=== PATIENT | female | born 1995 | race Caucasian/White ===

== ENCOUNTER 2020-01-08 11:45 | Outpatient (REF) | payer OTHER, SELFPAY ==
[2020-01-08 13:33] LABS: Ferritin 3 ng/mL (10-122); Vitamin D 25-OH Total 31.5 ng/mL (>30)
[2020-01-11 03:56] LABS: Zinc 70 mcg/dL (60-130)
== END 2020-01-08 11:46 | disposition home or self-care (01) ==
LOC: HO.LAB 11:45
PROVIDERS: PCP Internal Medicine; Visit Provider Physician Assistant Medical
DX: L65.0 Telogen effluvium (principal); L64.8 Other androgenic alopecia
CPT/HCPCS: 82306; 82728; 84630

== ENCOUNTER 2020-01-15 08:52 | Outpatient (REF) | payer OTHER, SELFPAY ==
[2020-01-15 09:12] LABS: COVID-19 Test Negative (Negative)
== END 2020-01-15 08:53 | disposition home or self-care (01) ==
LOC: HO.LAB 08:52
PROVIDERS: Visit Provider Internal Medicine
DX: Z20.828 Contact with and (suspected) exposure to other viral communicable diseases (principal)
CPT/HCPCS: 87635

== ENCOUNTER 2020-02-10 12:38 | Outpatient (REF) | payer OTHER, SELFPAY ==
[2020-02-10 14:31] LABS: COVID-19 Test Negative (Negative); IDNOW Serial# 55D5AD1C
== END 2020-02-10 12:39 | disposition home or self-care (01) ==
LOC: HO.EMPCOV 12:38
PROVIDERS: Visit Provider Internal Medicine
DX: Z20.828 Contact with and (suspected) exposure to other viral communicable diseases (principal)
CPT/HCPCS: 87635; C9803

== ENCOUNTER 2020-02-11 13:00 | Outpatient (REF) | payer OTHER, SELFPAY ==
[2020-02-14 16:57] LABS: CMV DNA PCR Qn Source Whole Blood; CMV DNA Qn PCR <2.30 log IU/mL (<2.30); CMV DNA Qn Real Time PCR <200 IU/mL (<200)
== END 2020-02-11 13:01 | disposition home or self-care (01) ==
LOC: HO.LAB 13:00
PROVIDERS: Visit Provider Internal Medicine
DX: J02.9 Acute pharyngitis, unspecified (principal)
CPT/HCPCS: 87497

== ENCOUNTER 2020-03-06 08:13 | Outpatient (REF) | payer OTHER, SELFPAY ==
--- NOTE | 2020-03-06 08:17 | FL_ITS ---
EXAMINATION: XR GI SERIES CLINICAL INFORMATION: GE reflux disease without esophagitis. COMPARISON: None TECHNIQUE: Routine upper GI single contrast study was performed in upright and lying position. FINDINGS: Following oral administration of thick barium and effervescent granules, there is normal propagation of bolus from the oral cavity through the pharynx, esophagus into stomach without obstruction, narrowing, or stricture. On placing patient prone and supine lying, the course, caliber and peristalsis of the stomach, duodenal bulb and the sweep is normal. No gastroesophageal reflux or hiatal hernia seen. The mucosal pattern of stomach, duodenal bulb and the sweep is normal. FLUOROSCOPY TIME: 1.1 minutes DOSE AREA PRODUCT: 7.147 uGy-m2 (microgray-meter squared) FL/FL upper GI series IMPRESSION: Unremarkable upper GI single contrast study.
== END 2020-03-06 08:14 | disposition home or self-care (01) ==
LOC: HO.XRAY 08:13
PROVIDERS: PCP Internal Medicine; Visit Provider Internal Medicine
DX: K21.9 Gastro-esophageal reflux disease without esophagitis (principal)
CPT/HCPCS: 74240

== ENCOUNTER 2020-03-17 14:05 | Outpatient (REF) | payer OTHER, SELFPAY ==
[2020-03-17 14:22] LABS: COVID-19 Test Negative (Negative)
== END 2020-03-17 14:06 | disposition home or self-care (01) ==
LOC: HO.EMPCOV 14:05
PROVIDERS: Visit Provider Internal Medicine
DX: Z20.828 Contact with and (suspected) exposure to other viral communicable diseases (principal)
CPT/HCPCS: 87635; C9803

== ENCOUNTER 2020-04-17 08:36 | Outpatient (REF) | payer OTHER, SELFPAY ==
[2020-04-17 09:42] LABS: Ferritin 30 ng/mL (10-122)
== END 2020-04-17 08:37 | disposition home or self-care (01) ==
LOC: HO.LAB 08:36
PROVIDERS: PCP Internal Medicine; Visit Provider Dermatology
DX: L64.8 Other androgenic alopecia (principal); L65.0 Telogen effluvium
CPT/HCPCS: 36415; 82728

== ENCOUNTER 2020-05-01 08:54 | Outpatient (REF) | payer OTHER, SELFPAY ==
[2020-05-01 09:11] LABS: COVID-19 Test Negative (Negative)
== END 2020-05-01 08:55 | disposition home or self-care (01) ==
LOC: HO.EMPCOV 08:54
PROVIDERS: Visit Provider Internal Medicine
DX: Z20.822 Contact with and (suspected) exposure to COVID-19 (principal)
CPT/HCPCS: 36415; 87635; C9803

== ENCOUNTER 2020-06-12 09:56 | Outpatient (REF) | payer OTHER, SELFPAY | END 2020-06-12 09:57 | disposition home or self-care (01) | LOC: HO.LAB 09:56 | PROVIDERS: PCP Physician Assistant; Visit Provider Obstetrics & Gynecology | DX: Z01.419 Encounter for gynecological examination (general) (routine) without abnormal findings (principal) | CPT/HCPCS: 88142 ==

== ENCOUNTER 2020-11-24 08:40 | Outpatient (REF) | payer OTHER, SELFPAY ==
[2020-11-24 10:09] LABS: Ferritin 47 ng/mL (10-122)
[2020-12-02 20:56] LABS: Cystic Fibrosis NEGATIVE (NEGATIVE)
== END 2020-11-24 08:41 | disposition home or self-care (01) ==
LOC: HO.LAB 08:40
PROVIDERS: Absent Provider Dermatology; PCP Internal Medicine; Visit Provider Obstetrics & Gynecology Reproductive Endocrinology
DX: L64.8 Other androgenic alopecia (principal); L65.0 Telogen effluvium
CPT/HCPCS: 36415; 81220; 81329; 82728

== ENCOUNTER 2021-03-11 10:27 | Outpatient (REF) | payer OTHER, SELFPAY ==
[2021-03-11 10:45] LABS: MANUAL DIFF FLAG NO
[2021-03-11 11:30] LABS: Basophils Percent Auto 0.3 % (0-2); Eosinophils Absolute Auto 0.5 X10*3/uL (0.0-0.4); Eosinophils Percent Auto 8.1 % (0-4); Hematocrit 39.5 % (37.0-47.0); Imm Gran Abs Auto 0.01 X10*3/uL (0.00-0.03); Imm Gran Pct Auto 0.2 % (0.0-0.4); Lymphocytes Percent Auto 33.7 % (20-40); Mean Corpuscular HGB Conc 32.9 g/dl (31.0-35.0); Mean Corpuscular Hemoglobin 30.6 pg (27.0-33.0); Mean Corpuscular Volume 92.9 fL (80.0-98.0); Mean Platelet Volume 9.9 fL (9.4-12.3); Monocytes Absolute Auto 0.3 X10*3/uL (0.1-1.2); Monocytes Percent Auto 4.9 % (2-11); Neutrophils Absolute Auto 3.1 x10*3/uL (2.0-8.3); Neutrophils Percent Auto 52.8 % (45-73); Platelet Count 321 X10*3/uL (160-400); Red Blood Count 4.25 X10*6/uL (4.20-5.50); Red Cell Distribution Width 12.4 % (11.0-16.0); White Blood Count 5.9 X10*3/uL (4.8-10.8)
[2021-03-11 11:51] LABS: Alanine Aminotransferase 9 U/L (0-31); Albumin Level 4.3 g/dL (3.5-5.0); Alkaline Phosphatase 45 U/L (39-117); Anion Gap 12 (12-20); Aspartate Amino Transferase 13 U/L (5-31); Bilirubin Total 0.5 mg/dL (0.0-1.0); Blood Urea Nitrogen 11 mg/dL (9-16); Calcium 9.3 mg/dL (8.4-10.2); Carbon Dioxide 23 mmol/L (22-29); Chloride 107 mmol/L (96-108); Cholesterol 168 mg/dL; Estimated Glomerular Filt Rate > 60; Glucose Fasting 75 mg/dL (60-99); HDL Cholesterol 50 mg/dL; Iron 142 mcg/dL (30-160); LDL Cholesterol Calculated 109 mg/dl; Percent Iron Saturation 45 % (15-50); Potassium 4.2 mmol/L (3.3-5.1); Sodium 138 mmol/L (135-145); Total Iron Binding Capacity 313 mcg/dL (228-428); Total Protein 7.2 g/dL (6.5-8.0); Triglycerides 48 mg/dL; Unsaturated Iron Binding 171 ug/dL
[2021-03-11 12:14] LABS: Vitamin D 25-OH Total 20.4 ng/mL (>30)
[2021-03-11 12:22] LABS: Folate 6.4 ng/mL (> or = 4.0); Vitamin B12 405 pg/mL (200-900)
== END 2021-03-11 10:28 | disposition home or self-care (01) ==
LOC: HO.LAB 10:27
PROVIDERS: Absent Provider Nurse Practitioner Family; PCP Internal Medicine; Visit Provider Internal Medicine
DX: K14.6 Glossodynia (principal); E78.5 Hyperlipidemia, unspecified; D64.9 Anemia, unspecified; E78.00 Pure hypercholesterolemia, unspecified
CPT/HCPCS: 36415; 80053; 80061; 82306; 82607; 82746; 83540; 85025

== ENCOUNTER → 2021-03-29 07:06 | Outpatient (REF) | payer OTHER, SELFPAY ==
--- NOTE | 2021-03-29 | HM_ITS ---
Conclusion: 1. Patient was monitored for total period of 6 days and 18 hours 2. Baseline rhythm is normal sinus rhythm with average heart rate of 81 beats per minute 3. Very rare ectopy noted 4. No patient reported event MTDD
== END ==
LOC: HO.CARD 07:06
PROVIDERS: PCP Internal Medicine; Visit Provider Internal Medicine
DX: R00.0 Tachycardia, unspecified (principal)
CPT/HCPCS: 93242

== ENCOUNTER 2021-06-03 19:18 | Emergency (ER) | payer OTHER, SELFPAY ==
[2021-06-03 19:31] VITALS: BP 151/86; PULSE 123; RESP 16; TEMP 37.6; O2SAT 96; BMI 34.3
--- NOTE | 2021-06-03 19:44 | ECG_ITS ---
Test Reason : covid sysmptoms Blood Pressure : / mmHG Vent. Rate : 107 BPM Atrial Rate : 107 BPM P-R Int : 178 ms QRS Dur : 086 ms QT Int : 318 ms P-R-T Axes : 073 020 038 degrees QTc Int : 424 ms Sinus tachycardia Otherwise normal ECG No previous ECGs available Referred By: Karina Razo Electronically Signed By:KADIE SEQUEIRA MD
--- NOTE | 2021-06-03 20:05 | ED.FEVER ---
HPI - Fever General Chief Complaint: Fever Stated Complaint: fever Time Seen by Provider: 06/03/21 19:44 Source: patient Mode of arrival: ambulatory Limitations: no limitations History of Present Illness HPI Narrative: This is a 26-year-old female past medical history significant for GERD, low vitamin-D level presenting to the emergency department with malaise, bilateral ear discomfort, throat discomfort, fevers and fatigue x1 day. Patient tells me that this started approximately 16:00 suddenly. 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 Patient tells me she feels a fullness to bilateral ears and discomfort when she swallows, right ear worse than left. She has also feeling like her throat is very dry and uncomfortable. She reports fevers at home T-max around 102. Again she notes that this was sudden in onset. She is vaccinated against COVID and the flu. She has no history of mono. She denies chest pain, shortness of breath, nausea, vomiting, abdominal pain, weakness, headache, dizziness, lethargy. She just tells me she really does not feel well. She denies recent sick contacts. 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 MD elicited complaint: fever and malaise Onset (ago): day(s) (1) Measured temperature: 102 F Exacerbating factors: nothing Relieving factors: nothing Associated symptoms: chills and sore throat Treatments prior to arrival fever: none Related Data Home Medications Medication Instructions Recorded Confirmed ferrous sulfate 325 mg (65 mg 325 mg PO DAILY 02/10/20 03/11/21 iron) tablet Previous Rx's Medication Instructions Recorded Magic Mouthwash 5 ml PO QID 7 Days #240 ml 03/11/21 Diphen/Lido/Antacid 1:1:1 240 mL suspension Allergies Allergy/AdvReac Type Severity Reaction Status Date / Time sulfamethoxazole Allergy Severe HIVES Verified 03/11/21 10:06 [From BACTRIM] trimethoprim [From BACTRIM] Allergy Severe HIVES Verified 03/11/21 10:06 Sulfa (Sulfonamide Allergy Unknown hives Verified 03/11/21 10:06 Antibiotics) Review of Systems Review of Systems: Constitutional : No Weight loss, + Fever, + Chills, + Fatigue, +No Malaise ENT/Mouth : + sore throat, No Rhinorrhea, + ear discomfort Eyes: No Eye Pain, No Swelling, No Redness Cardiovascular : No Chest Pain, No SOB, No Dyspnea on Exertion, No Orthopnea, No Edema, No Palpitations Respiratory : No Cough, No Sputum, No Wheezing Gastrointestinal : No Nausea, No Vomiting, No Diarrhea, No Constipation, No abdominal Pain, No Hematochezia, No Melena Genitourinary : No Dysuria, No Urinary Frequency, No Hematuria, Musculoskeletal : No joint pain, No Myalgias, No Joint Swelling Skin : No Skin Lesions, No rash Neuro : No Weakness, No Numbness, No Dizziness, No Headache Psych : No Anxiety/Panic, No Depression All other systems reviewed and are negative Yes all other systems are reviewed and are negative [facility] Past Medical History Attestation statement: The following information was validated with the patient. Source: old records reviewed and nursing notes reviewed Medical History GERD (gastroesophageal reflux disease) Iron deficiency anemia due to chronic blood loss Left knee pain Physical exam Pure hypercholesterolemia Tachycardia Surgical History History of adenoidectomy Family History Family History Father Depression Mother Lupus Rheumatoid arthritis Sarcoidosis Social History Social History Housing: Apartment Alcohol intake: never Patient Tobacco Use Status: Never used Tobacco e-Cigarette/Vaping Use: Never Used Second Hand Smoke Exposure: No Advance Directives: No service: No Current occupational status: employed Current occupational exposures/hazards: No Gender identity: Female Physical Exam Vital Signs: Vital Signs: Last Vital Signs Temp 99.2 F 06/03/21 21:48 Pulse 114 H 06/03/21 21:54 Resp 16 06/03/21 21:54 BP 111/68 06/03/21 21:54 Pulse Ox 99 06/03/21 21:48 BMI result Body Mass Index 34.3 Patient's temperature noted to be slightly elevated. However not febrile at this time. Patient also noted to be tachycardic. Appearance: Alert.? Oriented X3.? No acute distress.? Head: Normocephalic, atraumatic, no step-offs or deformities Eyes: Pupils equal, round and reactive to light.? ENT: Pharynx normal.?+ bilateral ear canals erythematous without edema. No pain with manipulation of external ear. Bilateral tympanic membranes pearly white. Neck: Normal inspection.? Neck supple.? CVS: Regular rate pass rhythm likely sinus tachycardia. Pulses normal.? Respiratory: No respiratory distress.? Breath sounds normal.? Abdomen: Soft and nontender.? Skin: Skin warm and dry.? Normal skin color.? Normal skin turgor.? Extremities: No lower extremity edema.? No calf ttp. 5/5 strength to bilateral upper and lower extremities Back: No midline tenderness, no C-spine tenderness, full range of motion, no CVA tenderness bilaterally Neuro: Oriented X 3.? No motor deficit.? No sensory deficit. CN 2-12 intact Course Reevaluation(s) Reevaluation #1: CBC within normal limits. Chemistry with no acute electrolyte abnormalities. Lipase within normal limits. Urine negative. Urine negative. Flu/COVID/RSV negative. Monospot negative. Time: 21:57 Reevaluation #2: I had Dr. Soria look at patients ears. There is likely a cholesteatoma on the left ear. Will have her follow-up with ENT. Patient's symptoms are likely secondary to a viral illness. At this time I feel comfortable with discharge home with prompt PCP follow-up. I have given patient strict return precautions and advised her to return with new or worsening symptoms. Time: 22:20 MDM - Fever MDM Narrative Medical decision making narrative: 1945 26 yo f no significant pmhx presents to the emergency department with complaints of fevers, malaise, fatigue, dry throat, bilateral ear fullness/discomfort. Upon physical examination rapid regular rhythm is noted. Lungs are clear. Abdomen soft nontender nondistended. Neuro exam nonfocal. Patient is noted to be running a low-grade fever, and she is tachycardic likely secondary to fever and dehydration. Bilateral ear canals slightly erythematous however no edema noted. No pain with manipulation of external ear. No effusions or bulging of the tympanic membrane bilaterally. Negative Dinorah bilaterally. Based off patient history and physical examination will rule out flu/COVID/RSV, mono. I will also obtain basic labs to rule out electrolyte abnormalities. An EKG to ensure that the rapid regular rhythm is sinus tachycardia. History and physical examination not consistent with pulmonary embolism. Plan obtain basic labs, blood cultures, lactic, UA. Medical Records Attestation: I reviewed the patient's medical records. Lab Data Attestation: I reviewed the patient's lab results. Result diagrams: 06/03/21 20:11 06/03/21 20:11 Labs: Lab Results 06/03/21 06/03/21 06/03/21 Range/Units 20:10 20:10 20:10 WBC (4.8-10.8) X10*3/uL RBC (4.20-5.50) X10*6/uL Hgb (12.0-16.0) g/dl Hct (37.0-47.0) % MCV (80.0-98.0) fL MCH (27.0-33.0) pg MCHC (31.0-35.0) g/dl RDW (11.0-16.0) % Plt Count (160-400) X10*3/uL MPV (9.4-12.3) fL Immature Gran % (Auto) (0.0-0.4) % Neut % (Auto) (45-73) % Lymph % (Auto) (20-40) % [place] % (Auto) (2-11) % Eos % (Auto) (0-4) % Baso % (Auto) (0-2) % Lymph # (Auto) (1.2-4.9) X10*3/uL [place] # (Auto) (0.1-1.2) X10*3/uL Eos # (Auto) (0.0-0.4) X10*3/uL Baso # (Auto) (0.0-0.2) X10*3/uL Abs Immat Gran (auto) (0.00-0.03) X10*3/uL Absolute Neuts (auto) (2.0-8.3) x10*3/uL Absolute Nucleated RBC (0.0-0.012) X10*3/uL Nucleated RBC % (auto) (0.0-0.2) /100WBC Sodium (135-145) mmol/L Potassium (3.3-5.1) mmol/L Chloride (96-108) mmol/L Carbon Dioxide (22-29) mmol/L Anion Gap (12-20) BUN (9-16) mg/dL Creatinine (0.5-1.4) mg/dL Estim Creat Clear Calc Estimated GFR Random Glucose (60-115) mg/dL Lactic Acid 0.9 (0.5-2.0) mmol/L Calcium (8.4-10.2) mg/dL Magnesium (1.6-2.6) mg/dL Total Bilirubin (0.0-1.0) mg/dL AST (5-31) U/L ALT (0-31) U/L Alkaline Phosphatase (39-117) U/L Total Protein (6.5-8.0) g/dL Albumin (3.5-5.0) g/dL Lipase (8-78) U/L Urine Color Urine Appearance Urine pH (5.0-8.0) Ur Specific Worth (1.005-1.025) Urine Protein (NEG-TRACE) MG/DL Urine Glucose (UA) (NEG) MG/DL Urine Ketones (NEG) MG/DL Urine Blood (NEG) Urine Nitrite (NEG) Ur Leukocyte Esterase (NEG) Urine RBC (0) /HPF Urine WBC (0-4) /HPF Ur Squamous Epith Cells /LPF Urine Bacteria /LPF Urine Test (NEGATIVE) Monoscreen Negative (Negative) Influenza Type A (PCR) NEGATIVE (Negative) Influenza Type B (PCR) NEGATIVE (Negative) RSV RNA Qual (PCR) NEGATIVE (Negative) SARS-CoV-2 RNA (RT-PCR) NEGATIVE (Negative) 06/03/21 06/03/21 06/03/21 Range/Units 20:11 20:11 21:45 WBC 8.3 (4.8-10.8) X10*3/uL RBC 4.38 (4.20-5.50) X10*6/uL Hgb 13.5 (12.0-16.0) g/dl Hct 40.6 (37.0-47.0) % MCV 92.7 (80.0-98.0) fL MCH 30.8 (27.0-33.0) pg MCHC 33.3 (31.0-35.0) g/dl RDW 12.1 (11.0-16.0) % Plt Count 287 (160-400) X10*3/uL MPV 9.2 L (9.4-12.3) fL Immature Gran % (Auto) 0.2 (0.0-0.4) % Neut % (Auto) 86.8 H (45-73) % Lymph % (Auto) 8.6 L (20-40) % [place] % (Auto) 3.1 (2-11) % Eos % (Auto) 1.2 (0-4) % Baso % (Auto) 0.1 (0-2) % Lymph # (Auto) 0.7 L (1.2-4.9) X10*3/uL [place] # (Auto) 0.3 (0.1-1.2) X10*3/uL Eos # (Auto) 0.1 (0.0-0.4) X10*3/uL Baso # (Auto) 0.0 (0.0-0.2) X10*3/uL Abs Immat Gran (auto) 0.02 (0.00-0.03) X10*3/uL Absolute Neuts (auto) 7.2 (2.0-8.3) x10*3/uL Absolute Nucleated RBC 0.000 (0.0-0.012) X10*3/uL Nucleated RBC % (auto) 0.0 (0.0-0.2) /100WBC Sodium 137 (135-145) mmol/L Potassium 3.7 (3.3-5.1) mmol/L Chloride 103 (96-108) mmol/L Carbon Dioxide 26 (22-29) mmol/L Anion Gap 12 (12-20) BUN 8 L (9-16) mg/dL Creatinine 0.77 (0.5-1.4) mg/dL Estim Creat Clear Calc 102.6 Estimated GFR > 60 Random Glucose 89 (60-115) mg/dL Lactic Acid (0.5-2.0) mmol/L Calcium 9.8 (8.4-10.2) mg/dL Magnesium 2.0 (1.6-2.6) mg/dL Total Bilirubin 0.8 (0.0-1.0) mg/dL AST 17 (5-31) U/L ALT 14 (0-31) U/L Alkaline Phosphatase 51 (39-117) U/L Total Protein 7.7 (6.5-8.0) g/dL Albumin 4.7 (3.5-5.0) g/dL Lipase 34 (8-78) U/L Urine Color STRAW Urine Appearance CLEAR Urine pH 7.5 (5.0-8.0) Ur Specific [place] 1.010 (1.005-1.025) Urine Protein NEG (NEG-TRACE) MG/DL Urine Glucose (UA) NEG (NEG) MG/DL Urine Ketones NEG (NEG) MG/DL Urine Blood NEG (NEG) Urine Nitrite NEG (NEG) Ur Leukocyte Esterase NEG (NEG) Urine RBC 0 (0) /HPF Urine WBC 0-2 (0-4) /HPF Ur Squamous Epith Cells TRACE /LPF Urine Bacteria TRACE /LPF Urine Test (NEGATIVE) Monoscreen (Negative) Influenza Type A (PCR) (Negative) Influenza Type B (PCR) (Negative) RSV RNA Qual (PCR) (Negative) SARS-CoV-2 RNA (RT-PCR) (Negative) 06/03/21 Range/Units 21:45 WBC (4.8-10.8) X10*3/uL RBC (4.20-5.50) X10*6/uL Hgb (12.0-16.0) g/dl Hct (37.0-47.0) % MCV (80.0-98.0) fL MCH (27.0-33.0) pg MCHC (31.0-35.0) g/dl RDW (11.0-16.0) % Plt Count (160-400) X10*3/uL MPV (9.4-12.3) fL Immature Gran % (Auto) (0.0-0.4) % Neut % (Auto) (45-73) % Lymph % (Auto) (20-40) % [place] % (Auto) (2-11) % Eos % (Auto) (0-4) % Baso % (Auto) (0-2) % Lymph # (Auto) (1.2-4.9) X10*3/uL [place] # (Auto) (0.1-1.2) X10*3/uL Eos # (Auto) (0.0-0.4) X10*3/uL Baso # (Auto) (0.0-0.2) X10*3/uL Abs Immat Gran (auto) (0.00-0.03) X10*3/uL Absolute Neuts (auto) (2.0-8.3) x10*3/uL Absolute Nucleated RBC (0.0-0.012) X10*3/uL Nucleated RBC % (auto) (0.0-0.2) /100WBC Sodium (135-145) mmol/L Potassium (3.3-5.1) mmol/L Chloride (96-108) mmol/L Carbon Dioxide (22-29) mmol/L Anion Gap (12-20) BUN (9-16) mg/dL Creatinine (0.5-1.4) mg/dL Estim Creat Clear Calc Estimated GFR Random Glucose (60-115) mg/dL Lactic Acid (0.5-2.0) mmol/L Calcium (8.4-10.2) mg/dL Magnesium (1.6-2.6) mg/dL Total Bilirubin (0.0-1.0) mg/dL AST (5-31) U/L ALT (0-31) U/L Alkaline Phosphatase (39-117) U/L Total Protein (6.5-8.0) g/dL Albumin (3.5-5.0) g/dL Lipase (8-78) U/L Urine Color Urine Appearance Urine pH (5.0-8.0) Ur Specific [place] (1.005-1.025) Urine Protein (NEG-TRACE) MG/DL Urine Glucose (UA) (NEG) MG/DL Urine Ketones (NEG) MG/DL Urine Blood (NEG) Urine Nitrite (NEG) Ur Leukocyte Esterase (NEG) Urine RBC (0) /HPF Urine WBC (0-4) /HPF Ur Squamous Epith Cells /LPF Urine Bacteria /LPF Urine Test NEGATIVE (NEGATIVE) Monoscreen (Negative) Influenza Type A (PCR) (Negative) Influenza Type B (PCR) (Negative) RSV RNA Qual (PCR) (Negative) SARS-CoV-2 RNA (RT-PCR) (Negative) Critical Care Time Critical Care Time Critical Care Time: No Discharge Plan Discharge Clinical Impression: Viral illness, Fever Patient Disposition: Home, Self-Care Instructions: Fever in Adults (ED), Viral Syndrome (ED) Additional Instructions: Take your medications as prescribed. If you were prescribed antibiotics today, it is important that you take your medication to their entirety, do not skip any doses, do not finish them early. Follow-up with your primary care provider this week. Return to the emergency department with new or worsening symptoms. Such as fevers, chills, chest pain, shortness of breath, nausea, vomiting, dizziness, headache, vision changes, lethargy In case of emergency call 911 Your flu/COVID/RSV and Monospot all came back negative. Your labs are reassuring. Prescriptions: No Action ferrous sulfate 325 mg (65 mg iron) tablet 325 mg PO DAILY 0RF Magic Mouthwash Diphen/Lido/Antacid 1:1:1 240 mL suspension 5 ml PO QID 7 Days Qty: 240 0RF Rx Instructions: Lidocaine Viscous 2 % 80mL; diphenhydramine 12.5 mg/5 mL 80mL; aluminum-mag hydrox-simeth [id number]/5mL 80mL Referrals: Radha Perrin [Emergency Nurse] - 2 days Stand Alone Forms: Work/School Release
[2021-06-03 20:09] VITALS: TEMP 38.8
[2021-06-03 20:19] LABS: MANUAL DIFF FLAG NO
[2021-06-03 20:21] LABS: Basophils Percent Auto 0.1 % (0-2); Eosinophils Absolute Auto 0.1 X10*3/uL (0.0-0.4); Eosinophils Percent Auto 1.2 % (0-4); Hematocrit 40.6 % (37.0-47.0); Hemoglobin 13.5 g/dl (12.0-16.0); Imm Gran Abs Auto 0.02 X10*3/uL (0.00-0.03); Imm Gran Pct Auto 0.2 % (0.0-0.4); Lymphocytes Absolute Auto 0.7 X10*3/uL (1.2-4.9); Lymphocytes Percent Auto 8.6 % (20-40); Mean Corpuscular HGB Conc 33.3 g/dl (31.0-35.0); Mean Corpuscular Hemoglobin 30.8 pg (27.0-33.0); Mean Corpuscular Volume 92.7 fL (80.0-98.0); Mean Platelet Volume 9.2 fL (9.4-12.3); Monocytes Absolute Auto 0.3 X10*3/uL (0.1-1.2); Monocytes Percent Auto 3.1 % (2-11); Neutrophils Absolute Auto 7.2 x10*3/uL (2.0-8.3); Neutrophils Percent Auto 86.8 % (45-73); Platelet Count 287 X10*3/uL (160-400); Red Blood Count 4.38 X10*6/uL (4.20-5.50); Red Cell Distribution Width 12.1 % (11.0-16.0); White Blood Count 8.3 X10*3/uL (4.8-10.8)
[2021-06-03] MEDS: 0.9 % Sodium Chloride 1,000 ML 999 ML IV ×2 (20:24→22:50)
[2021-06-03] MEDS: Acetaminophen 325 MG TABLET 650 MG PO (20:29)
[2021-06-03 20:30] LABS: Lactic Acid 0.9 mmol/L (0.5-2.0)
[2021-06-03 20:37] LABS: Alanine Aminotransferase 14 U/L (0-31); Albumin Level 4.7 g/dL (3.5-5.0); Alkaline Phosphatase 51 U/L (39-117); Anion Gap 12 (12-20); Aspartate Amino Transferase 17 U/L (5-31); Bilirubin Total 0.8 mg/dL (0.0-1.0); Blood Urea Nitrogen 8 mg/dL (9-16); Calcium 9.8 mg/dL (8.4-10.2); Carbon Dioxide 26 mmol/L (22-29); Chloride 103 mmol/L (96-108); Creatinine Clr Calc Pharmacy 102.6; Estimated Glomerular Filt Rate > 60; Glucose Random 89 mg/dL (60-115); Lipase 34 U/L (8-78); Potassium 3.7 mmol/L (3.3-5.1); Sodium 137 mmol/L (135-145); Total Protein 7.7 g/dL (6.5-8.0)
[2021-06-03 20:59] LABS: Influenza A PCR NEGATIVE (Negative); Influenza B PCR NEGATIVE (Negative); Resp Syncy Virus RNA Qual PCR NEGATIVE (Negative); SARS COV2 PCR INHOUSE NEGATIVE (Negative)
[2021-06-03 21:47] LABS: Monotest Negative (Negative)
[2021-06-03 21:48] VITALS: BP 112/70; PULSE 112; RESP 18; TEMP 37.3; O2SAT 99
[2021-06-03 21:53] LABS: Appearance Urine CLEAR; Color Urine STRAW; Glucose Urine UA NEG (NEG); Leukocyte Esterase Urine NEG (NEG); Nitrite Urine NEG (NEG); PH 7.5 (5.0-8.0); Urine Blood NEG (NEG); Urine Ketones NEG (NEG); Urine Protein NEG (NEG-TRACE)
[2021-06-03 21:54] VITALS: BP 111/68; PULSE 114; RESP 16
[2021-06-03 21:54] LABS: Urine Pregnancy NEGATIVE (NEGATIVE)
[2021-06-03 21:55] LABS: UPreg QC Valid YES
[2021-06-03 21:58] LABS: Bacteria Urine TRACE /LPF; RBC Urine 0 /HPF (0); Squamous Epithelial Cell Urine TRACE /LPF; WBC Urine 0-2 /HPF (0-4)
[2021-06-03 22:55] VITALS: BP 104/65; PULSE 102; RESP 16; O2SAT 100
== END 2021-06-03 23:33 | disposition home or self-care (01) ==
PROVIDERS: Physician Assistant; Emergency Provider Emergency Medicine Emergency Medical Services; PCP Internal Medicine
DX: B34.9 Viral infection, unspecified (principal); R50.9 Fever, unspecified; Z20.822 Contact with and (suspected) exposure to COVID-19
CPT/HCPCS: 0241U; 36415; 80053; 81001; 81025; 83605; 83690; 83735; 85025; 86308; 87040; 93005; 96361; 96374; 99284; 99285

== ENCOUNTER → 2021-06-25 13:09 | Outpatient (BNVA) | payer OTHER, SELFPAY | PROVIDERS: PCP Internal Medicine; Visit Provider Advanced Practice Midwife | DX: Z13.89 Encounter for screening for other disorder (principal) ==

== ENCOUNTER 2021-07-16 09:26 | Outpatient (REF) | payer OTHER, SELFPAY ==
[2021-07-16 10:26] LABS: Influenza A PCR NEGATIVE (Negative); Influenza B PCR NEGATIVE (Negative); Resp Syncy Virus RNA Qual PCR NEGATIVE (Negative); SARS COV2 PCR INHOUSE NEGATIVE (Negative)
== END 2021-07-16 09:27 | disposition home or self-care (01) ==
LOC: HO.LAB 09:26
PROVIDERS: PCP Internal Medicine; Visit Provider Nurse Practitioner Family
DX: Z20.822 Contact with and (suspected) exposure to COVID-19 (principal); R09.89 Other specified symptoms and signs involving the circulatory and respiratory systems; J02.9 Acute pharyngitis, unspecified
CPT/HCPCS: 0241U; 87071

== ENCOUNTER 2021-12-08 10:40 | Outpatient (REF) | payer OTHER, SELFPAY | END 2021-12-08 10:41 | disposition home or self-care (01) | LOC: HO.LAB 10:40 | PROVIDERS: Visit Provider Hospitalist | DX: Z13.89 Encounter for screening for other disorder (principal) ==

== ENCOUNTER → 2022-02-04 11:24 | Outpatient (REF) | payer OTHER, SELFPAY ==
--- NOTE | 2022-02-04 11:38 | HM_ITS ---
Conclusion: 1. Patient was monitored for 1 day and 21 hours 2. Baseline was normal sinus rhythm with average heart of 79 beats per minute 3. No significant tachy or [place] arrhythmias noted 4. No patient reported events MTDD
== END ==
LOC: HO.CARD 11:24
PROVIDERS: PCP Hospitalist; Visit Provider Internal Medicine
DX: R00.2 Palpitations (principal)
CPT/HCPCS: 93226

== ENCOUNTER 2022-02-11 11:37 | Outpatient (REF) | payer OTHER, SELFPAY ==
[2022-02-11 12:27] LABS: Influenza A PCR NEGATIVE (Negative); Influenza B PCR NEGATIVE (Negative); Resp Syncy Virus RNA Qual PCR NEGATIVE (Negative); SARS COV2 PCR INHOUSE POSITIVE (Negative)
== END 2022-02-11 11:38 | disposition home or self-care (01) ==
LOC: HO.LNP 11:37
PROVIDERS: Visit Provider Internal Medicine
DX: Z20.822 Contact with and (suspected) exposure to COVID-19 (principal); R43.9 Unspecified disturbances of smell and taste
CPT/HCPCS: 0241U

== ENCOUNTER → 2022-07-05 13:13 | Outpatient (BNVA) | payer OTHER, SELFPAY | PROVIDERS: PCP Internal Medicine; Referring Provider Internal Medicine; Visit Provider Internal Medicine | DX: R00.2 Palpitations (principal) | CPT/HCPCS: 93005 ==

== ENCOUNTER → 2022-07-21 08:06 | Outpatient (REF) | payer OTHER, SELFPAY ==
--- NOTE | 2022-07-21 08:08 | CA_ITS ---
Transthoracic Echocardiogram Patient (Last, First, Middle): Angelica Green K Gender: Female Date of : 1995 Age: 27 Procedure Date: 07/21/2022 Procedure Type: Transthoracic Echocardiogram Location: OP Height: 157.48 cm Weight: 62.14 kg BSA: 1.63 m2 Heart Rate: bpm BP: 108 / 65 mmHg Deputy Commissioner: HAN Referring MD: Yung Li MD Group Managing Director: Jaxson Santana MD Symptoms: R00.2 - Palpitations Study Quality: Good ECG Rhythm: Sinus Conclusions: - Essentially normal study Findings Left Ventricle Normal left ventricular size, thickness, and systolic function. The visually estimated ejection fraction is between 65-70%. Diastolic function is normal for age. Peak GLS is -21.3%, within normal limits. Right Ventricle Normal right ventricular cavity size and systolic function. Atria Both atria are normal in size. There is lipomatous hypertrophy of the interatrial septum. Interatrial shunt cannot be excluded. Aortic Valve Normal aortic valve structure and function. There is no aortic valve stenosis. There is no aortic valve regurgitation. Mitral Valve Normal mitral valve structure and function. There is trace mitral valve regurgitation. There is no mitral valve stenosis. Pulmonic Valve The pulmonic valve is likely normal. There is trace pulmonic valve regurgitation. Tricuspid Valve Normal tricuspid valve structure. There is trace tricuspid valve regurgitation. The right ventricular systolic pressure is normal. The right ventricular systolic pressure is 20 mmHg. Normal right atrial pressure. There is no evidence of pulmonary hypertension. Great Vessels All visible segments of the aorta are normal in size. The pulmonary artery was not well visualized. Venous The inferior vena cava is normal in size and collapses greater than 50% with inspiration. Pericardium/Pleural There is no evidence of pericardial effusion. Prior Study Comparison No prior study available for comparison. Measurements 2D Linear Measurements IVSd: 0.66 0.6-0.9/0.6-1.0 cm LVIDd: 4.85 3.9-5.3/4.2-5.9 cm LVIDd Index: 2.98 2.4-3.2/2.2-3.1 cm/m2 LVIDs: 3.01 2.0-3.6 cm LVPWd: 0.66 0.7-1.1 cm LA Diam: 2.90 2.7-3.8/3.0-4.0 cm LAIDs Index: 1.78 1.5-2.3 cm/m2 LV Mass: 125.04 67-162/88-224 g LV Mass Index: 76.71 43-95/49-115 g/m2 LVOT Diam: 1.90 3.0+(-)1.3 cm 2D Systolic Function EF 4C: 68.20 >55% EF 2C: 64.70 >55% EF BiP: 67.00 >55% Mitral Valve MV Pk E: 1.10 MV PK A: 0.66 MV Decel Time: 178.00 E/A: 1.70 E'Lateral: 24.40 E'Medial: 13.70 E/E' Med: 8.00 E/E' Lat: 4.50 PHT: 52.00 MVA PHT: 4.23 Decel [place]: 6.16 Aortic Valve AoV Pk Min: 1.64 AoV Mn Min: 1.21 AoV VTI: 0.33 AoV Pk Grad: 11.00 Aov Mn Grad: 6.00 MEETA Cont.VTI: 2.29 LVOT LVOT Pk Min: 1.39 LVOT Mn Min: 0.93 LVOT VTI: 0.27 LVOT Pk Grad: 8.00 LVOT Mn Grad: 4.00 LVOT Diam: 1.90 LVOT Area: 2.84 Diastolic Function MV Pk E: 1.10 MV Pk A: 0.66 E/A: 1.70 E'Medial: 13.70 E/E' Med: 8.00 E' Laterial: 24.40 E/E' Lat: 4.50 Right Ventricle TAPSE (mm): 24.40 TVS' Min: 14.40 Tricuspid Valve TR Pk Min: 2.07 TR Pk Grad: 17.00 RA Press: 3.00 RVSP: 20.00 Great Vessels Aorta Sinus of Valsalva: 2.49 2.0-3.[address] [place]: 1.95 1.7-3.4 cm Ao Asc: 2.60 2.1-3.4 cm Ao Arch: 2.10 Updated in Other Vendor System with Status of Final Jaxson Santana MD electronically signed on 07/21/2022 9:40:32 AM with status of Final
== END ==
LOC: HO.CARD 08:06
PROVIDERS: PCP Internal Medicine; Visit Provider Internal Medicine
DX: R00.2 Palpitations (principal)
CPT/HCPCS: 93306; 93356

== ENCOUNTER 2022-12-02 09:49 | Outpatient (AMB) | payer OTHER, SELFPAY ==
--- NOTE | 2022-12-02 09:52 | MHC.PC.OV ---
Vital Signs 12/02/22 09:54 Height 5 ft 5 in Weight 163 lb 4 oz BMI 27.2 BP 100/60 Blood Pressure Location Lt brachial Position Sitting Pulse 82 Pulse Source Pulse Oximeter Pulse Oximetry (%) 98 Oxygen Delivery Method Room Air Intake Visit Reasons: phy Intake Note: Patient is here today for a physical. Women'S Activities Adviser Required: No Security Officers And Guards: Not Required per policy Accompanied by: Self / Same As Patient Allergies sulfamethoxazole [From BACTRIM] Allergy (Severe, Verified 12/02/22 09:53) HIVES trimethoprim [From BACTRIM] Allergy (Severe, Verified 12/02/22 09:53) HIVES Sulfa (Sulfonamide Antibiotics) Allergy (Unknown, Verified 12/02/22 09:53) hives Tobacco use date assessed: 12/02/22 Dental Screening Dental Screen Date: 12/02/22 Did you have a dental visit in the last 12 months?: Yes Did you have a dental problem in the last 6 months where you did not have access to dental care?: No Was dental information given to patient?: Patient has dentist HPI HPI Comments History of Present Illness Details 27-year-old female past medical history significant for GERD, hypercholesteremia, headaches and palpitations. Patient currently 7 months due in January, follows with [facility] on vitamins. Patient presents today for physical exam. Review of the notes patient was seen by Dr. Li admissions coordinator in June for palpitations, EKG normal sinus rhythm patient has undergone Holter monitors time 2 which were both unremarkable did show sinus tach which is likely physiological, which is of concern. Cardiology ordered echocardiogram to ensure that there is no structural abnormalities. Echo normal. Eye exam: August 2022 Pap smear: May 2020 [facility] Medical History GERD (gastroesophageal reflux disease) Iron deficiency anemia due to chronic blood loss Left knee pain Physical exam Pure hypercholesterolemia Tachycardia Surgical History History of adenoidectomy Family History Father Depression Mother Lupus Rheumatoid arthritis Sarcoidosis Social History Housing: Apartment Alcohol intake: never Patient Tobacco Use Status: Never used Tobacco e-Cigarette/Vaping Use: Never Used Second Hand Smoke Exposure: No service: No Current occupational status: employed Current occupational exposures/hazards: No Sexual orientation: Lesbian/Thompson/Homosexual Gender identity: Female Cognitive needs: No Hearing needs: No Vision needs: Yes (glasses) Female Reproductive History Menstrual Age of Menarche: 12 Questionnaire PHQ-9 Over the last 2 weeks, how often have you been bothered by any of the following problems? 1. Little interest or pleasure in doing things: not at all 2. Feeling down, depressed, or hopeless: not at all 3. Trouble falling or staying asleep, or sleeping too much: not at all 4. Feeling tired or having little energy: not at all 5. Poor appetite or overeating: not at all 6. Feeling bad about yourself - or that you are a failure or have let yourself or your family down: not at all 7. Trouble concentrating on things, such as reading the newspaper or watching television: not at all 8. Moving or speaking so slowly that other people could have noticed. Or the opposite - being so fidgety or restless that you have been moving around a lot more than usual: not at all 9. Thoughts that you would be better off or of hurting yourself in some way: not at all Total score: 0 Depression Screening Interpretation: Negative Source: Developed by Drs. Gerardo Mcintyre, Trinity Salguero, Orestes Pope and colleagues, with an educational oliver from [employer]. Thrive Questionnaire Date Thrive assessed: 12/02/22 I am a: Patient What is your living situation today?: I have a steady place to live Within the past 12 months, did the food you bought not last and you didn't have the money to get more?: Never true Within the past 12 months, did you worry whether your food would run out before you got money to buy more?: Never true Do you have trouble paying for medicines?: No Do you have trouble getting transportation to medical appointments?: No Do you have trouble paying your heating and electricity bill?: No Do you have trouble taking care of your child, family member or friend?: No Do you have trouble with day-to-day activities such as bathing, preparing meals, shopping, managing finances, etc.?: No Are you currently unemployed and looking for a job?: No Are you interested in more education?: No Currently or been in a relationship where the following occur: no concerns reported AUDIT C Alcohol Use Questionnaire (AUDIT-C) 1. How often do you have a drink containing alcohol?: Never Total Score: 0 VIOLETA-7 AMB Questionnaire VIOLETA-7 Date VIOLETA - 7 assessed: 12/02/22 Feeling nervous, anxious, or on edge: 0 = Not at all Not being able to stop or control worryin = Not at all Worrying too much about different things: 0 = Not at all Trouble relaxin = Not at all Being so restless that it is hard to sit still: 0 = Not at all Becoming easily annoyed or irritable: 0 = Not at all Feeling afraid as if something awful might happen: 0 = Not at all Total VIOLETA-7 score (0-4 normal; 5-9 mild; 10-14 moderate; 15-21 severe): 0 Source: Developed by Drs. Gerardo Mcintyre, Trinity Salguero, Orestes Pope and colleagues, with an educational oliver from [employer]. Review of Systems Const Denies chills, Denies fatigue, Denies fever(s) and Denies poor appetite Eyes Denies no additional complaints ENT Reports Normal hearing present Card Denies chest pain, Denies syncope, Denies rapid heart rate and Denies dyspnea Resp Denies cough and Denies dyspnea GI Denies change in stool character, Denies constipation, Denies diarrhea, Denies nausea and Denies vomiting Denies urinary frequency, Denies dysuria and Denies urinary urgency Neuro Reports Normal hearing present, Denies confusion and Denies syncope Psych Denies confusion Endo Denies fatigue Physical exam (Primary Care) Vital Signs: Last Vital Signs Pulse 82 12/02/22 09:54 BP 100/60 12/02/22 09:54 Pulse Ox 98 12/02/22 09:54 Oxygen Delivery Method Room Air 12/02/22 09:54 BMI result Body Mass Index 27.2 Tobacco/Smoking Status: Tobacco use Status Tobacco use date assessed 12/02/22 12/02/22 09:58 Patient Tobacco Use Status Never used Tobacco 12/02/22 09:58 e-Cigarette/Vaping Use Never Used 12/02/22 09:58 PHQ-9: PHQ-9 Score PHQ-9: Total score 0 12/02/22 09:58 Depression Screening Interpretation: Negative Thrive Assessment: Date of Thrive Assessment Date Thrive assessed 12/02/22 12/02/22 09:58 Currently or been in a relationship where the following occur: no concerns reported Const General: No confusion Orientation/consciousness: No confusion HENMT Head: Yes normocephalic and Yes atraumatic Ears: external ears normal and TM's normal bilaterally General nose exam: Normal external nose present and Normal nasal mucous membranes and turbinates present Face and sinus: Yes normal facial exam and Yes sinuses nontender Mouth: moist mucous membranes Throat: Yes tonsils normal Eyes Conjunctivae: conjunctivae normal Sclerae: sclerae normal Pupils: Equal, round and reactive pupils present and Pupils normal by confrontation EOM: EOMs intact bilaterally Direct Ophthalmoscopy: normal light reflex Neck Neck: Yes no lymphadenopathy and Yes supple Thyroid: Thyroid normal Chest Chest palpation & inspection: normal inspection of the chest Resp Effort & Inspection: normal respiratory effort Auscultation: clear to auscultation bilaterally, no crackles, no rhonchi and no wheezes Cardio Rate: regular rate Rhythm: regular rhythm Peripheral pulses: radial pulses present and dorsalis pedis present GI Inspection: Yes normal to inspection Auscultation: normoactive bowel sounds Skin General skin exam: no rashes or lesions noted Neuro General: No confusion Cranial nerves: Yes Equal, round and reactive pupils present and Yes Normal hearing present Cognition (Neuro): normal cognition Gait exam (Neuro): Normal gait present Motor exam (neuro): 5/5 motor strength present throughout Deep tendon reflexes (DTR's): Right brachioradialis reflex intensity grade: 2+, Left brachioradialis reflex intensity grade: 2+, Right patellar reflex intensity grade: 2+ and Left patellar reflex intensity grade: 2+ Extrem General: No edema Assessment and Plan Assessment & Plan (1) Physical exam, annual: Code(s): Z00.00 - Encounter for general adult medical examination without abnormal findings Plan: Labs differed at this time as patient is following with obgyn and they have completed labs on her. Patient reports they were normal. Follow up in 1 year or sooner if needed. Plan Follow up in 1 year. Coding Level of Care Code Est Pt Prev Care 18-39y(58628) Diagnoses Physical exam, annual Z00.00
[2022-12-02 09:54] VITALS: BP 100/60; PULSE 82; O2SAT 98; BMI 27.2
== END 2022-12-02 10:30 | disposition home or self-care (01) ==
PROVIDERS: PCP Internal Medicine; Visit Provider Nurse Practitioner Family
DX: Z00.00 Encounter for general adult medical examination without abnormal findings (principal)
CPT/HCPCS: 99395

== ENCOUNTER 2023-09-18 08:08 | Outpatient (AMB) | payer OTHER, SELFPAY ==
[2023-09-18 08:39] VITALS: BP 122/80; PULSE 87; TEMP 36.7; O2SAT 97
--- NOTE | 2023-09-18 08:39 | AM.OFFWIN_ITS ---
Intake Vital Signs 09/18/23 08:39 Height 5 ft 5 in BP 122/80 Blood Pressure Location Rt brachial Position Sitting Pulse 87 Pulse Source Pulse Oximeter Temp 98.1 F Temp Source Oral Pulse Oximetry (%) 97 Oxygen Delivery Method Room Air Intake Visit Reasons: EP Sinus infection? Intake Note: pt is here for possible sinus infection since monday Patient Tobacco Use Status: Never used Tobacco Allergies sulfamethoxazole [From BACTRIM] Allergy (Severe, Verified 09/18/23 08:40) HIVES trimethoprim [From BACTRIM] Allergy (Severe, Verified 09/18/23 08:40) HIVES Sulfa (Sulfonamide Antibiotics) Allergy (Unknown, Verified 09/18/23 08:40) hives Do you need a note to return to daycare/school/sports/work: Yes HPI HPI Comments History of Present Illness Details Patient presents to the walk in for sick visit Endorses 4 days sinus congestion. Three days ago had sore throat which has since resolved. Two days ago had fever up to 101. No fever since. Denies chest pain, shortness of breath, palpitations, syncope, weakness [facility] Medical History GERD (gastroesophageal reflux disease) Iron deficiency anemia due to chronic blood loss Left knee pain Physical exam Pure hypercholesterolemia Tachycardia Surgical History History of adenoidectomy Family History Father Depression Mother Lupus Rheumatoid arthritis Sarcoidosis Social History Housing: Apartment Alcohol intake: never Patient Tobacco Use Status: Never used Tobacco e-Cigarette/Vaping Use: Never Used Second Hand Smoke Exposure: No service: No Current occupational status: employed Current occupational exposures/hazards: No Sexual orientation: Lesbian/Thompson/Homosexual Gender identity: Female Cognitive needs: No Hearing needs: No Vision needs: Yes (glasses) Female Reproductive History Menstrual Age of Menarche: 12 Review of Systems Const All systems reviewed & are unremarkable except as noted in HPI and below Physical Exam Vital Signs: Last Vital Signs Temp 98.1 F 09/18/23 08:39 Pulse 87 09/18/23 08:39 BP 122/80 09/18/23 08:39 Pulse Ox 97 09/18/23 08:39 Oxygen Delivery Method Room Air 09/18/23 08:39 General: awake, alert, oriented. Answers questions appropriately. Fully engaged in examination. Skin: warm, dry, intact HEENT: TMs intact bilaterally, without redness. Posterior pharynx without erythema or exudate. Sclera without icterus or injection. Cardiac: External chest normal in appearance. Respiratory: LSCTAB. Abdomen: without gross distension. Neurological: Oriented to person, place, time and situation. Thought process intact. Psychiatric: Appropriate mood and affect. Good judgment and insight. Assessment & Plan Assessment & Plan (1) Upper respiratory tract infection: Code(s): J06.9 - Acute upper respiratory infection, unspecified Plan URI, no abx warranted. Rest, drink plenty of fluids, tylenol or motrin as needed. Recommend taking OTC nasal decongestants Work note provided Follow up with pcp or in clinic for any new or worsening symptoms. Go to ER for shortness of breath, chest pain, palpitations, weakness, dizziness. Coding Level of Care Code Est Pt Level 3 (73218) Diagnoses Upper respiratory tract infection J06.9
--- OUTSIDE RECORDS SUMMARY | 2023-09-21 07:38 | XMS_ITS | Continuity of Care Document ---
Author Organization [facility] Address Unknown Care Team Providers Care Coin Machine Servicer Repairer Name Role Phone Chet Braxton MD, Domi Primary Care Physician Encounter [facility] [place] [place] Date(s): 12/18/20 - 01/17/21 [facility] Rep[facility] Medicine Attending Physician: Maikel Bansal Admitting Physician: Maikel Bansal Referring Physician: AdmtrMaikel Allergies, Adverse Reactions, Alerts Substance Reaction Severity Status Bactrim Active Medications Valium 5 mg oral tablet See Instructions, Take 1 tablet By Mouth 1 hour prior to procedure. May repeat as needed., # 2 tablet, Refills 0, Tot. Refills 0, Maintenance, 12/11/20 13:58:00 EDT, Instructions Replace Required Details, Route to Pharmacy Electronically, [facility]/pharmacy... Start Date: 12/11/20 Status: Ordered Social History Social History Type Response Smoking Status Never smoker; Tobacc o user in household: No entered on: 07/26/16 Sex
--- OUTSIDE RECORDS SUMMARY | 2023-09-21 07:38 | XMS_ITS | Continuity of Care Document ---
Author Organization [facility] Address [address] [address]- Care Team Providers Care Machine Shop Worker Name Role Phone Chet Braxton MD, Eileen Cuevas Primary Care Physician Encounter [facility] [place] Date(s): 12/19/22 - 03/17/23 [facility] [address] [address] Attending Physician: Amna Veloz CNM Admitting Physician: Amna Veloz CNM Referring Physician: Eva Hart CNM Allergies, Adverse Reactions, Alerts Substance Reaction Severity Status Bactrim hives Active Immunizations Given and Recorded Vaccine Date Status Refusal Reason influenza virus vaccine, inactivated 12/19/22 Augusto rded influenza virus vaccine, inactivated 12/29/20 Augusto rded influenza virus vaccine, inactivated 01/16/20 Augusto rded influenza virus vaccine, inactivated 01/02/19 Augusto rded influenza virus vaccine, inactivated 01/10/18 Augusto rded tetanus/diphtheria/pertussis, acel(Tdap) 12/05/22 Recorded tetanus/diphtheria/pertussis, acel(Tdap) 12/05/22 Recorded tetanus/diphtheria/pertussis, acel(Tdap) 12/05/22 Recorded tetanus/diphtheria/pertussis, acel(Tdap) 12/05/22 Recorded tetanus/diphtheria/pertussis, acel(Tdap) 12/12/16 Recorded SARS-CoV-2 (COVID-19) mRNA-1273 vaccine 03/25/21 R ecorded SARS-CoV-2 (COVID-19) mRNA-1273 vaccine 05/25/20 R ecorded SARS-CoV-2 (COVID-19) mRNA-1273 vaccine 04/27/20 R ecorded Measles/Mumps/Rubella Virus Vaccine 12/29/16 Recor ded Medications Plus Low Iron oral tablet 1 tablet, By Mouth, Daily, # 90 tablet, 3 Refills, Maintenance, 01/05/23 17:55:00 EDT, [id number], 1 tablet By Mouth Daily, 154, cm, 01/02/23 17:25:00 EDT, Height, 76.33, kg, 01/02/23 17:25:00 EDT, Dry Weight Start Date: 01/05/23 Status: Ordered Problem List Condition Confirmation Course Effective Dates Status Health St atus Informant delivery delivered Confirmed Active History of palpitations Confirmed Active Social History Social History Type Response Smoking Status Never (less than 100 in lifetime) entered on: 07/04/22 Sex Patient Care team information Care Team Personnel Name: Chet Braxton MD , Eileen Cuevas Position: Reference Physician Member Role: PCP Address: Address: [address] [place] [address]- Care Team Related Persons Name: CHERI MERINO Address: home [address] [place] [address] Name: CEASAR SINGLETARY Address: home [address] [place] [address] Name: JEOVANNY SINGLETARY Address: [employer] Address: home [address] [place] [address] Address: temporary 0
--- OUTSIDE RECORDS SUMMARY | 2023-09-21 07:38 | XMS_ITS | Continuity of Care Document ---
Author Organization [facility] Address [address] [place] [id number]- Care Team Providers Care Dietetics Teacher Name Role Phone Chet Braxton MD, Eileen Ceuvas Primary Care Physician Encounter [facility] Date(s): 01/05/23 - 02[facility]04[facility]23 [facility] [address] [place] [id number] Allergies, Adverse Reactions, Alerts Substance Reaction Severity [...] Effective Dates Status Health St atus Informant History of palpitations Confirmed Active Obese class I Confirmed Active Confirmed Active Social History Social History Type Response Smoking Status Never (less than 100 in lifetime) entered on: 07/04/22 Sex Patient Care team information Care Team Personnel Name: Chet Braxton MD , Eileen Cuevas Position: Reference Physician Member Role: PCP Address: Address: [address] [place] [address] [address] [place], [place] [address] Care Team Related Persons Name: CHERI MERINO Address: [address] [address] Name: CEASAR SINGLETARY Address: [place] [address]
--- OUTSIDE RECORDS SUMMARY | 2023-09-21 07:38 | XMS_ITS | Continuity of Care Document ---
Author Organization [facility] Address Unknown Care Team Providers Care Gas Meter Installer Helper Name Role Phone Chet Braxton MD, Eileen Cuevas Primary Care Physician [phone] Encounter [facility] Date(s): 11/23/20 - 12/23/20 [facility] Reproductive [facility] Allergies, Adverse Reactions, Alerts Substance Reaction Severity Status Bactrim Active Medications Valium 5 mg oral tablet See Instructions, Take 1 tablet By Mouth 1 hour prior to procedure. May repeat as needed., # 2 tablet, Refills 0, Tot. Refills 0, Maintenance, 12/11/20 13:58:00 EDT, Instructions Replace Required Details, [facility] to [facility]... Start Date: 12/11/20 Status: Ordered Social History Social History Type Response Smoking Status Never smoker; Tobacc o user in household: No entered on: 07/26/16 Sex
--- OUTSIDE RECORDS SUMMARY | 2023-09-21 07:38 | XMS_ITS | Continuity of Care Document ---
Author Organization [facility] Address Unknown Care Team Providers Care Painter And Grader Cork Name Role Phone Chet Braxton MD, Eileen Cuevas Primary Care Physician Encounter [facility] [place] Date(s): 10/30/20 - 11/29/20 [facility] Reproductive Medicine Allergies, Adverse Reactions, Alerts Substance Reaction Severity Status Bactrim Active Social History Social History Type Response Smoking Status Never smoker; Tobacc o user in household: No entered on: 07/26/16 Sex
--- OUTSIDE RECORDS SUMMARY | 2023-09-21 07:38 | XMS_ITS | Continuity of Care Document ---
Author Organization [facility] Address [address] [address]- Care Team Providers Care Online Marketer Name Role Phone Chet Braxton MD, Eileen Cuevas Primary Care Physician [facility] Date(s): 02/10/23 - 03/12/23 [facility] [address] [place] [id number] Allergies, Adverse Reactions, Alerts Substance Reaction Severity [...] vaccine 04/27/20 R ecorded Measles/Mumps/Rubella Virus Vaccine 10/5/17 Recor ded Medications Plus Low Iron oral [...] Reference Physician Member Role: PCP Address: Address: [address] [place] [address] [address] [place] [address]- Care Team Related Persons Name: CHERI MERINO Address: home [address] [place] [address] Name: CEASAR SINGLETARY Address: home [address] [place] [address] Name: JEOVANNY SINGLETARY Address: [employer] Address: [address] [address] [place] [address] [place]
--- OUTSIDE RECORDS SUMMARY | 2023-09-21 07:38 | XMS_ITS | Continuity of Care Document ---
Author Organization [facility] Address Unknown Care Team Providers Care Board Certified Music Therapist Name Role Phone Chet Bratxon MD, Eileen Cuevas Primary Care Physician [place] [facility] [place] [facility] [place] 11[place]20/20 - 11/27/20 [facility] Reproductive Medicine Attending Physician: Mita Manrique MD Allergies, Adverse Reactions, Alerts Substance Reaction Severity Status Bactrim Active Vital Signs Most recent to oldest [Reference Range]: 1 Height 154 cm (11/20/20 12:04 PM) Weight 60.4 kg (11/20/20 12:04 PM) Pulse Rate [55-90 bpm] 89 bpm (11/20/20 12:04 PM) Body Mass Index [18.5-24.99] 25.47 *H* (11/20/20 12:04 PM) Blood Pressure [90-138/55-84 mm Hg] 124/ 72mm Hg (11/20/20 12:04 PM) Blood pressure sites Arm, right (11/20/20 12:04 PM) Weight Obtained Via Standing scale (11/20/20 12:04 PM) Social History Social History Type Response Smoking Status Never smoker; Tobacc o user in household: No entered on: 07/26/16 Sex
--- OUTSIDE RECORDS SUMMARY | 2023-09-21 07:38 | XMS_ITS | Continuity of Care Document ---
Author Organization [facility] Address [address] [facility], [address] [place] [address]- Care Team Providers Care Mortgage Loan Processing Clerk Name Role Phone Chet Braxton MD, Eileen Cuevas Primary Care Physician Encounter [facility] Date(s): 07/28/20 - 08/27/20 [facility]ductive Medicine [address] [place] [address], [address] [place] [id number] Allergies, Adverse Reactions, Alerts Substance Reaction Severity Status Bactrim Active Social History Social History Type Response Smoking Status Never smoker; Tobacc o user in household: No entered on: 07/26/16 Sex
--- OUTSIDE RECORDS SUMMARY | 2023-09-21 07:38 | XMS_ITS | Continuity of Care Document ---
Author Organization [facility] Address [address] [place] [address], [address] [place] [address]- Care Team Providers Care Wood Carving Lathe Operator Name Role Phone Chet Braxton MD, Eileen Cuevas Primary Care Physician [place] [facility] [place]22 - 08/12/22 [facility] [address] [facility] [place] [address]- Attending Physician: Isabel Mcmillan MD Referring Physician: Jenifer Martin CNM Allergies, Adverse Reactions, Alerts Substance Reaction Severity Status Bactrim hives Active Immunizations Given and Recorded Vaccine Date Status Refusal Reason SARS-CoV-2 (COVID-19) mRNA-1273 vaccine 03/25/21 R ecorded SARS-CoV-2 (COVID-19) mRNA-1273 vaccine 05/25/20 R ecorded SARS-CoV-2 (COVID-19) mRNA-1273 vaccine 04/27/20 R ecorded influenza virus vaccine, inactivated 12/29/20 Augusto rded influenza virus vaccine, inactivated 01/16/20 Augusto rded influenza virus vaccine, inactivated 01/02/19 Augusto rded influenza virus vaccine, inactivated 01/10/18 Augusto rded Measles/Mumps/Rubella Virus Vaccine 12/29/16 Recor ded tetanus/diphtheria/pertussis, acel(Tdap) 12/12/16 Recorded Medications PNV Plus oral tablet 1 tablet, By Mouth, Daily, # 90 tablet, 0 Refills, Maintenance, 07/04/22 11:35:00 EDT, [facility]/pharmacy#[id number], Partial fill upon patient request if the prescription is for a schedule II opioid drug., 1 tablet By Mouth Daily,x90 days, 154, cm, 07/04/22 9:5... Start Date: 07/04/22 Stop Date: 10/02/22 Status: Ordered VITAMIN B-6 25 MG TABLET VITAMIN B-6 25 MG TABLET, 1, tablet, By Mouth, 3 times a day, # 90 tablet, 0 Refills, Maintenance, 08/01/22 12:21:00 EDT, 154, cm, 07/04/22 9:59:00 EDT, Height Start Date: 08/01/22 Status: Ordered Problem List Condition Confirmation Course Effective Dates Status Health St atus Informant Heavy menses Confirmed Active Social History Social History Type Response Smoking Status Never (less than 100 in lifetime) entered on: 07/04/22 Sex Patient Care team information Care Team Personnel Name: Chet Braxton MD , Eileen Cuevas Position: Reference Physician Member Role: PCP Address: Address: [address] [place] [address]- Care Team Related Persons Name: CHERI MERINO Address: [place] [address] Name: CEASAR SINGLETARY Address: [place] [address]
--- OUTSIDE RECORDS SUMMARY | 2023-09-21 07:38 | XMS_ITS | Continuity of Care Document ---
Author Organization [facility] Address [address] [address]- Care Team Providers Care Cartoon Artist Name Role Phone Chet Braxton MD, Eileen Cuevas Primary Care Physician [facility]23 - [facility]23 [facility] [address] [place] [id number] Allergies, Adverse Reactions, Alerts Substance Reaction Severity [...] Reference Physician Member Role: PCP Address: Address: [address] [place] [address] [address] [place] [address]- Care Team Related Persons Name: CHERI MERINO Address: home [address] [place] [address] Name: CEASAR SINGLETARY Address: home [address] [place] [address] Name: JEOVANNY SINGLETARY Address: AMER[place] Address: [place] [address] [facility] [address] [facility] [address] [place] [address] [place]
--- OUTSIDE RECORDS SUMMARY | 2023-09-21 07:38 | XMS_ITS | Continuity of Care Document ---
Author Organization [facility] Address [address] [place] [address]- Care Team Providers Care Mri Tech Name Role Phone Chet Braxton MD, Eileen Cuevas Primary Care Physician [facility] Date(s): 06/24/22 - 07/24/22 [facility] [address] [place] [id number] Allergies, Adverse Reactions, Alerts Substance Reaction Severity [...] tablet, 0 Refills, Maintenance, 07/04/22 11:35:00 EDT, [facility]/pharmacy#[id number], Partial fill upon patient request if the prescription is for a schedule II opioid drug., 1 tablet By Mouth Daily,x90 days, 154, cm, 07/04/22 9:5... Start Date: 07/04/22 Stop Date: 10/02/22 Status: Ordered Multivitamins By Mouth, Daily, 0 Refills, Maintenance, 10/26/21 11:20:00 EDT, Partial fill upon patient request if the prescription is for a schedule II opioid drug. Start Date: 10/26/21 Status: Ordered Unisom 25 mg oral tablet 1 tablet = 25 mg, By Mouth, Daily, for 30 days, 15 to 30 minutes before bed, # 30 tablet, 0 Refills, Acute 08/03/22 11:35:00 EDT, 07/04/22 11:35:00 EDT, [facility]/pharmacy #[id number], Partial fill upon patient request if the prescription is for a schedule II opi... Start Date: 07/04/22 Stop Date: 08/03/22 Status: Ordered Vitamin B6 25 mg oral tablet 1 tablet = 25 mg, By Mouth, 3 times a day, for 30 days, # 90 tablet, 0 Refills, Acute 08/03/22 11:35:00 EDT, 07/04/22 11:35:00 EDT, [facility]/pharmacy #[id number], Partial fill upon patient request if the prescription is for a schedule II opioid drug., 154, cm, 0... Start Date: 07/04/22 Stop Date: 08/03/22 Status: Ordered Problem List Condition Confirmation Course Effective Dates Status Health St atus Informant Heavy menses Confirmed Active Social History Social History Type Response Smoking Status Never (less than 100 in lifetime) entered on: 07/04/22 Sex Patient Care team information Care Team Personnel Name: Chet Braxton MD , Eileen Cuevas Position: Reference Physician Member Role: PCP Address: Address: [address] [place] [address]- Care Team Related Persons Name: CHERI MERINO Address: home [address] [place] [address] Name: CEASAR SINGLETARY Address: [place] [address]
--- OUTSIDE RECORDS SUMMARY | 2023-09-21 07:38 | XMS_ITS | Continuity of Care Document ---
Author Organization [facility] Address [address] [facility], 4t h Floor [address] [place] [address]- Care Team Providers Care Heel Sprayer First Name Role Phone Chet Braxton MD, Josseline Cuevas Primary Care Physician [phone] [facility] Date[facility]s): 04/03/19 - 04/10/19 [facility] [address] [facility], 4th Floor [address] [place] [address]- [facility] Attending Physician: Mita Manrique MD Referring Physician: Yudith Marie CNM, I Allergies, Adverse Reactions, Alerts Substance Reaction Severity Status Bactrim Active Medications No Known Medications Vital Signs Most recent to oldest [Reference Range]: 1 Height 154 cm (04/03/19 8:25 AM) Weight 62.2 kg (04/03/19 8:25 AM) Pulse Rate [55-90 bpm] 82 bpm (04/03/19 8:25 AM) Body Mass Index [18.5-24.99] 26.23 *H* (04/03/19 8:25 AM) Blood Pressure [90-138/55-84 mm Hg] 119/ 67mm Hg (04/03/19 8:25 AM) Blood pressure sites Arm, right (04/03/19 8:25 AM) Social History Social History Type Response Smoking Status Never smoker; Tobacc o user in household: No entered on: 07/26/16 Sex
--- OUTSIDE RECORDS SUMMARY | 2023-09-21 07:38 | XMS_ITS | Continuity of Care Document ---
Author Organization [facility] Address [address] [facility], 4t h Floor [address] [place] [address]- Care Team Providers Care Finishing Range Feeder Name Role Phone Chet Braxton MD, Eileen Cuevas Primary Care Physician [facility]s): 07/29/20 - 08/28/20 [facility] [address] [place] [address], 4th [address] [place] [id number] Allergies, Adverse Reactions, Alerts Substance Reaction Severity Status Bactrim Active Social History Social History Type Response Smoking Status Never smoker; Tobacc o user in household: No entered on: 07/26/16 Sex
--- OUTSIDE RECORDS SUMMARY | 2023-09-21 07:38 | XMS_ITS | Continuity of Care Document ---
Author Organization [facility] Address Unknown Care Team Providers Care Dealer Compliance Representative Name Role Phone Chet Braxton MD, Eileen Cuevas Primary Care Physician [phone] [place] [facility] Date(s): 12/11/20 - 01/10/21 [facility] Reproductive Medicine Allergies, Adverse Reactions, Alerts [...]
--- OUTSIDE RECORDS SUMMARY | 2023-09-21 07:38 | XMS_ITS | Continuity of Care Document ---
Author Organization [facility] Address Unknown Care Team Providers Care Slicing Machine Feeder Name Role Phone Chet Braxton MD, Domi Primary Care Physician En[place] [facility] Date(s): 12/18/20 - 12/25/20 [facility] Rep[facility] Attending Physician: Tia Ayala MD Referring Physician: Mita Manrique MD Allergies, Adverse Reactions, [...]
--- OUTSIDE RECORDS SUMMARY | 2023-09-21 07:38 | XMS_ITS | Continuity of Care Document ---
Author Organization [facility] Address [address] [facility], 4t h Floor [address] [place] [address]- Care Team Providers Care Religious Education Teacher Name Role Phone Chet Braxton MD, Eileen Cuevas Primary Care Physician [phone] [facility]s): 06/11/22 - 07/11/22 [facility] Reproductive Medicine [address] [facility], 4th Floor [address] [place] [id number] Attending Physician: Maikel Bansal Admitting Physician: AdmtrMaikel Referring Physician: Admtr, Ar8 Allergies, Adverse Reactions, Alerts Substance Reaction Severity [...] tablet, 0 Refills, Maintenance, 07/04/22 11:35:00 EDT, [facility]/pharmacy#[id number], Partial fill upon patient request if the [...] Reference Physician Member Role: PCP Address: Address: [address] [place] [address]- Care Team Related Persons Name: CHERI MERINO Address: [place] [address] Name: CEASAR SINGLETARY Address: [place] [address]
--- OUTSIDE RECORDS SUMMARY | 2023-09-21 07:38 | XMS_ITS | Continuity of Care Document ---
Author Organization [facility] Address [address] [place] [address]- Care Team Providers Care Oncology Physician Name Role Phone Chet Braxton MD, Eileen Cuevas Primary Care Physician [phone] [facility] [facility] [place](s): 12/01/21 - 12/31/21 [facility] [address] [place], [place] [address] Allergies, Adverse Reactions, Alerts Substance Reaction [...] Recor ded tetanus/diphtheria/pertussis, acel(Tdap) 12/12/16 Recorded Medications Multivitamins By Mouth, Daily, 0 Refills, Maintenance, 10/26/21 11:20:00 EDT, Partial fill upon patient request if the prescription is for a schedule II opioid drug. Start Date: 10/26/21 Status: Ordered Problem List Condition Confirmation Course Effective Dates Status Health St atus Informant Heavy menses Confirmed Active Social History Social History Type Response Smoking Status Never smoker; Tobacc o user in household: No entered on: 07/26/16 Sex Patient Care team information Personnel Name: Chet Braxton MD , Eileen Cuevas Address: Address: [address] [place] [address]
--- OUTSIDE RECORDS SUMMARY | 2023-09-21 07:38 | XMS_ITS | Continuity of Care Document ---
Author Organization [facility] Address [address] [place] [address]- Care Team Providers Care Kiln Tester Name Role Phone Chet Braxton MD, Eileen Cuevas Primary Care Physician [phone] [facility] Date(s): 10/12/22 - 11/11/22 [facility] [address] [place] [address]- Allergies, Adverse Reactions, Alerts Substance Reaction Severity [...] Recor ded tetanus/diphtheria/pertussis, acel(Tdap) 12/12/16 Recorded Medications Plus Low Iron oral tablet 1 tablet, By Mouth, Daily, # 90 tablet, 0 Refills, Maintenance, 09/30/22 16:30:00 EDT, [id number], 90, TAKE 1 TABLET BY MOUTH EVERY DAY, 154, cm, 08/31/22 17:18:00 EDT, Height, 67.6, kg, 08/31/22 17:18:00 EDT, Dry Weight Start Date: 09/30/22 Status: Ordered Problem List Condition Confirmation Course Effective Dates Status Health St atus Informant Obese class I Confirmed Active Social History Social History Type Response Smoking Status Never (less than 100 in lifetime) entered on: 07/04/22 Sex Patient Care team information Care Team Personnel Name: Eileen Umanzor MD Position: Reference Physician Member Role: PCP Address: Address: [address] [place] [address] [address] [place] [address]- Care Team Related Persons Name: CHERI MERINO Address: [place] [address] Name: CEASAR SINGLETARY Address: [place] [address]
--- OUTSIDE RECORDS SUMMARY | 2023-09-21 07:38 | XMS_ITS | Continuity of Care Document ---
Author Organization [facility] Address [address] [place] [address], [address] [place] [address]- Care Team Providers Care Break Off Worker Name Role Phone Chet Braxton MD, Eileen Cuevas Primary Care Physician [id number] Date(s): 02/08/23 - 03/10/23 [facility] [employer] [facility] [address] [facility], 4th [place], [place] [address] Attending Physician: AdmMaikel hill Admitting Physician: AdmtrMaikel Referring Physician: Admtr, Ar8 [...] Physician Member Role: PCP Address: Address: [address] [facility] [address] [place], [place] [address] Care Team Related Persons Name: CHERI MERINO Address: home [address] [place] [address] Name: CEASAR SINGLETARY Address: home [address] [place] [address] Name: JEOVANNY SINGLETARY Address: AMERCN Address: home [address] [facility] [address] [place] [address] [place]
--- OUTSIDE RECORDS SUMMARY | 2023-09-21 07:38 | XMS_ITS | Continuity of Care Document ---
Author Organization [facility] Address [address] [place] [address]- Care Team Providers Care Budget Officer Name Role Phone Chet Braxton MD, Eileen Cuevas Primary Care Physician [facility](s): 08/05/22 - 09/04/22 [facility] [address] [place] [address]- Allergies, Adverse Reactions, Alerts Substance Reaction Severity [...] tablet, 0 Refills, Maintenance, 07/04/22 11:35:00 EDT, [facility]/pharmacy#[id number], Partial fill upon patient request if the [...] Reference Physician Member Role: PCP Address: Address: [address] [place] [address] [address] [place], [place] [address] Care Team Related Persons Name: CHERI MERINO Address: [address] [address] Name: CEASAR SINGLETARY Address: [address] [address]
--- OUTSIDE RECORDS SUMMARY | 2023-09-21 07:38 | XMS_ITS | Continuity of Care Document ---
Author Organization [facility] Address [address] [place] [address]- Care Team Providers Care Cloth Handler Name Role Phone Chet Braxton MD, Eileen Cuevas Primary Care Physician En[place] [facility] Date(s): 10/26/21 - 11/02/21 [facility] [address] [place] [address]- Attending Physician: Diane Kim MD Referring Physician: Eileen Umanzor MD Allergies, Adverse Reactions, Alerts Substance Reaction [...] Date: 10/26/21 Status: Ordered Problem List Condition Effective Dates Status Health Status Inform ant Heavy menses(Confirmed) Active Procedures Procedure Date Related Diagnosis Body Site Status Adenoidectomy 1999 Completed Vital Signs Most recent to oldest [Reference Range]: 1 Height 154 cm (10/26/21 11:16 AM) Weight 61.1 kg (10/26/21 11:16 AM) Body Mass Index [18.5-24.99] 25.76 *H* (10/26/21 11:16 AM) Blood Pressure [90-138/55-84 mm Hg] 110/ 68mm Hg (10/26/21 11:16 AM) Blood pressure sites Arm, right (10/26/21 11:16 AM) Weight Obtained Via Standing scale (10/26/21 11:16 AM) Social History Social History Type Response Smoking Status Never smoker; Tobacc o user in household: No entered on: 07/26/16 Sex
--- OUTSIDE RECORDS SUMMARY | 2023-09-21 07:38 | XMS_ITS | Continuity of Care Document ---
Author Organization [facility] Address [address] [address]- Care Team Providers Care Traditional Chinese Herbalist Name Role Phone Chet Braxton MD, Domi Primary Care Physician En[place] [facility] Date(s): 12/19/22 - 03/17/23 [facility] [address] [place] [address] Attending Physician: Not on Staff, Attending MD Referring Physician: Eva Hart CNM Allergies, Adverse [...] Physician Member Role: PCP Address: Address: [address] [place] [address]- Care Team Related Persons Name: CHERI MERINO Address: home [address] [place] [address] Name: CEASAR SINGLETARY Address: [address] [place] [address] Name: JEOVANNY SINGLETARY Address: AMERCN Address: home [address] [facility] [address] [place] [address] Address: temporary 0
--- OUTSIDE RECORDS SUMMARY | 2023-09-21 07:38 | XMS_ITS | Continuity of Care Document ---
Author Organization [facility] Address [address] [facility], 4t h Floor [address] [place] [address]- Care Team Providers Care Manager Of Software Development Name Role Phone Chet Braxton MD, Eileen Cuevas Primary Care Physician [place] [facility] [place] 07/27/20 - 08/26/20 [facility] [address] [place] [address], 4th [address] [place] [address] Attending Physician: Maikel Bansal Admitting Physician: AdmMaikel hill Referring Physician: Admtr, Ar8 Allergies, Adverse Reactions, Alerts Substance Reaction Severity Status Bactrim Active Social History Social History Type Response Smoking Status Never smoker; Tobacc o user in household: No entered on: 07/26/16 Sex
--- OUTSIDE RECORDS SUMMARY | 2023-09-21 07:38 | XMS_ITS | Continuity of Care Document ---
Author Organization [facility] Address [address] [address]- Care Team Providers Care Sap Portal Developer Name Role Phone Chet Braxton MD, Domi Primary Care Physician Encounter [facility] Date(s): 12/19/22 - 03/31/23 [facility] [address] [place] [address] Attending Physician: Not on Staff, Attending MD [...] Physician Member Role: PCP Address: Address: [address] [facility] [address] [place] [address]- Care Team Related Persons Name: CHERI MERINO Address: home [address] [place] [address] Name: CEASAR SINGLETARY Address: [address] [place] [address] Name: JEOVANNY SINGLETARY Address: AMERCN Address: home [address] [facility] [facility] [place] [address] Address: temporary 0
--- OUTSIDE RECORDS SUMMARY | 2023-09-21 07:38 | XMS_ITS | Continuity of Care Document ---
Author Organization [facility] Address [address] [address]- Care Team Providers Care Professional Nursing Tutor Name Role Phone Chet Braxton MD, Eileen Cuevas Primary Care Physician [facility]s): 11/01/22 - 02/10/23 [facility] [address] [address]- Attending Physician: Mariann Dawson CNM Admitting Physician: Mariann Dawson CNM Referring Physician: Manasa RAMOS, Pippa Trinidad Allergies, Adverse Reactions, Alerts Substance Reaction Severity [...] Effective Dates Status Health St atus Informant Breech presentation Confirmed Active History of palpitations Confirmed Active Obese class I Confirmed Active Confirmed Active Social History Social History Type Response Smoking Status Never (less than 100 in lifetime) entered on: 07/04/22 Sex Patient Care team information Care Team Personnel Name: Chet Braxton MD , Eileen Cuevas Position: Reference Physician Member Role: PCP Address: Address: [address] [place] [address]- Care Team Related Persons Name: CHERI MERINO Address: [address] [address] Name: CEASAR SINGLETARY Address: [address] [address]
--- OUTSIDE RECORDS SUMMARY | 2023-09-21 07:38 | XMS_ITS | Continuity of Care Document ---
Author Organization [facility] [place] Address [address] [place] [address]- Care Team Providers Care Corporate Operations Compliance Manager Name Role Phone Chet Braxton MD, Eileen Cuevas Primary Care Physician [facility] Date(s): 06/23/22 - 07/23/22 [facility] [address] [place] [address] Allergies, Adverse Reactions, Alerts [...] tablet, 0 Refills, Maintenance, 07/04/22 11:35:00 EDT, [facility]/pharmacy#[id number], Partial fill upon patient request if the [...] Acute 08/03/22 11:35:00 EDT, 07/04/22 11:35:00 EDT, [facility]/pharmacy #[id number], Partial fill upon patient request if [...] Reference Physician Member Role: PCP Address: Address: [address] [place] [address]- Care Team Related Persons Name: CHERI MERINO Address: home [address] [place] [address] Name: CEASAR SINGLETARY Address: [place] [address]
--- OUTSIDE RECORDS SUMMARY | 2023-09-21 07:38 | XMS_ITS | Continuity of Care Document ---
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 Name Role Phone Chet Braxton MD, Eileen Cuevas Primary Care Physician [phone] Encounter [facility] Date(s): 02/17/23 - 02/19/[address] [address] Discharge Disposition: A-D/C Home Attending Physician: Annmarie De La Cruz DO Admitting Physician: Annmarie De La Cruz DO Referring Physician: Annmarie De La Cruz DO Allergies, Adverse Reactions, Alerts Substance Reaction Severity [...] Measles/Mumps/Rubella Virus Vaccine 12/29/16 Recor ded Medications Acetaminophen Tablet 650 mg, Tablet, By Mouth, (1-3), may give 325mg per patient preference and re- dose with 325mg within 4 hours if needed. Patient should only receive a total of 650mg of Acetaminophen every 4 hours., 02/19/23 10:00:00 EST Start Date: 02/19/23 Stop Date: 02/19/23 Status: Completed Colace sodium 100 mg oral capsule 100 mg, 1, capsule, By Mouth, 2 times a day, PRN, # 20 capsule, Refills 0, Tot. Refills 0, Acute 03/22/23 6:43:00 EST, for constipation, 02/19/23 6:43:00 EST, Route to Pharmacy Electronically, [facility]/pharmacy #[id number], Partial fill upon patient request if t... Start Date: 02/19/23 Stop Date: 03/22/23 Status: Ordered ibuprofen 600 mg oral tablet See Instructions, PRN, 1 tablet taken By Mouth Every 6 hours not to exceed 3200 mg/day, # 60 tablet, Refills 0, Tot. Refills 0, Acute 03/22/23 6:43:00 EST, as needed for pain, 02/19/23 6:43:00 EST, Instructions Replace Required Details, Route to Phar... Start Date: 02/19/23 Stop Date: 03/22/23 Status: Ordered Ibuprofen Tablet 800 mg, Tablet, By Mouth, (4-6), may give 400mg per patient preference and re- dose with 400mg within 8 hours if needed. Patient should only receive a total of 800mg of Ibuprofen every 8 hours., 02/19/23 6:00:00 EST Start Date: 02/19/23 Stop Date: 02/19/23 Status: Completed MiraLax oral powder for reconstitution = 17 Gm, By Mouth, Daily, dissolve in water before taking, # 255 Gm, 0 Refills, Acute 03/22/23 6:43:00 EST, 02/19/23 6:43:00 EST, REC Powder, [facility]/pharmacy #[id number], Partial fill upon patient request if the prescription is for a schedule II opioid drug.,... Start Date: 02/19/23 Stop Date: 03/22/23 Status: Ordered oxyCODONE 5 mg oral tablet 5 mg, 1, tablet, By Mouth, Every 6 hours, PRN, # 10 tablet, Refills 0, Tot. Refills 0, Acute 03/22/23 6:43:00 EST, as needed for pain, 02/19/23 6:43:00 EST, Route to Pharmacy Electronically, [facility]pharmacy #[id number], Partial fill upon patient request if the... Start Date: 02/19/23 Stop Date: 03/22/23 Status: Ordered OxyCODONE IR Tablet 5 mg, Tablet, By Mouth, Every 3 hours, PRN for Pain , Severe, (7-10), Routine, 02/18/23 13:11:00 EST Start Date: 02/18/23 Stop Date: 02/19/23 Status: Discontinued Plus Low Iron oral tablet 1 tablet, By Mouth, Daily, # 90 tablet, 3 Refills, Maintenance, 01/05/23 17:55:00 EDT, [id number], 1 tablet By Mouth Daily, 154, cm, 01/02/23 17:25:00 EDT, Height, 76.33, kg, 01/02/23 17:25:00 EDT, Dry Weight Start Date: 01/05/23 Status: Ordered simethicone 80 mg oral tablet, chewable 80 mg, 1, tablet, Chew, 4 times a day, PRN, # 12 tablet, Refills 0, Tot. Refills 0, Acute 03/22/23 6:43:00 EST, as needed for gas, 02/19/23 6:43:00 EST, Route to Pharmacy Electronically, [id number], Partial fill upon patient request if the pre... Start Date: 02/19/23 Stop Date: 03/22/23 Status: Ordered Tylenol 325 mg oral capsule See Instructions, PRN as needed for pain, 2 capsule (650 mg) taken By Mouth Every 4 hours not to exceed 4000 mg/day, # 60 capsule, 0 Refills, Maintenance, 02/19/23 6:43:00 EST, Capsule, [id number], Partial fill upon patient request if the pre... Start Date: 02/19/23 Stop Date: 03/22/23 Status: Ordered Problem List Condition Confirmation Course Effective Dates Status Health St atus Informant Breech presentation Confirmed Active History of palpitations Confirmed Active Obese class I Confirmed Active Confirmed Active Procedures Procedure Date Related Diagnosis Body Site Status delivery only; 02/17/23 C ompleted Vital Signs Most recent to oldest [Reference Range]: 1 2 3 Height 158 cm (02/19/23 8:00 AM) 158 cm (02/19/23 12:00 AM) 158 cm (02/18/23 8:00 AM) Weight 80 kg (02/16/23 7:22 PM) Oxygen Saturation [94-100 %] 98 % (02/19/23 8:00 AM) 98 % (02/19/23 12:00 AM) 96 % (02/18/23 8:00 AM) Pulse Rate [55-90 bpm] 80 bpm (02/19/23 8:00 AM) 75 bpm (02/19/23 12:00 AM) 64 bpm (02/18/23 8:00 AM) Body Mass Index [18.5-24.99 kg/m2] 32.05 kg/m2 *>HHI* (02/16/23 7:22 PM) Blood Pressure [90-138/55-84 mm Hg] 114/72mm Hg (02/19/23 8:00 AM) 111/62mm Hg (02/19/23 12:00 AM) 119/73mm Hg (02/18/23 8:00 AM) Respiratory Rate [16-30 br/min] 18 br/min (02/19/23 11:19 AM) 18 br/min (02/19/23 11:18 AM) 18 br/min (02/19/23 11:18 AM) Temperature [96.8-100.4 DegF] 97.9 DegF (02/19/23 8:00 AM) 98.1 DegF (02/19/23 12:00 AM) 97.9 DegF (02/18/23 8:00 AM) Mode of Delivery (Oxygen) Room air (02/19/23 8:00 AM) Room air (02/19/23 12:00 AM) Room air (02/18/23 8:00 AM) Blood pressure sites Arm, right (02/19/23 8:00 AM) Arm, right (02/19/23 12:00 AM) Arm, left (02/18/23 12:30 AM) Temperature Route Oral (02/19/23 8:00 AM) Oral (02/19/23 12:00 AM) Oral (02/18/23 8:00 AM) Dry Weight 80 kg (02/16/23 7:22 PM) Social History Social History Type Response Smoking Status Never (less than 100 in lifetime) entered on: 07/04/22 Sex History and physical note * Gladis Bradley MD: PERFORM Event Display: History and Physical Hospital Authored Date: Patient: ??ML SINGLETARY ? Age:??27 Years?Sex:??Female?:??1995?? OB Reason for Admission OB Reason for Admission Reason for admission: Primary Reason for Planned : Malpresentation LMP/EGA/SAMEERA Gestational Age (EGA) and SAMEERA? * Note: EGA calculated as of 02/17/2023 ?? SAMEERA:??02/22/2023?EGA*:??39 weeks 2 days ? History?(0,0,0,0)?Method:??Last Menstrual Period??(05/18/2022) History of Present Illness 27yo at 39+2 admitted for Primary section for breech presentation. She denies/admits to LOF, VB. + movement. Denies fever/chills, HOUGH, dizziness, changes in vision, CP, SOB, RUQ pain,??pain with urination, UE/LE swelling, calf tenderness. Overall, doing well with no complaints. Review of Systems Negative except as noted in the HPI. Physical Exam Vitals & Measurements T:??98.7?F?? HR:??81??(Peripheral)?? RR:??18?? BP:??120/85?? SpO2:??99%?? HT:??158??cm?? WT:??80??kg?? BMI:??32.05?? Constitutional:??Well-developed, no acute distress. Respiratory:??Clear to auscultation, equal bilaterally, no labored breathing.? Cardiovascular:??Regular rate and rhythm, no murmurs.? Abdomen/GI:??Soft, non-tender, non-distended, no guarding or rebound tenderness.??Gravid. Gynecologic:?? Extremities:??No edema or tenderness. Warm and well-perfused.?? Skin:??No rash or jaundice. Normal for ethnicity. Neurological/Psychiatric:??Appearance appropriate, mood and affect stable. ?? Presentation confirmed by US: breech Assessment/Plan Assessment:??27yo at 39+2 admitted for Primary section for breech presentation. Baby scanned tremaine rrival to L+D and still breech. Plan for PCS. We discussed the risks of surgery including but not limited to: bleeding, infection,injury to surrounding organs (bowel, bladder,ureter),nerve injury or anesthesia complications. Patient willing to accept blood transfusion if necessary. section consent signed. Patient agrees with plan, all questions answered. ?? Breech presentation (O32.1XX0):? Declines ECV Would like [facility] CNM at c/s IV Cefazolin 2g NPO PPBC: N/A, partner does not have sperm Placental location: posterior ?? History of palpitations (Z87.898):? s/p ECHO,??findings: essentially normal ?? Positive GBS test (B95.1):? Prophylaxis if in labor ? Patient seen and discussed with Dr. De La Cruz, attending physician OB History History?(0,0,0,0)?No previous pregnancies history have been recorded Labs Labs Labs & Tests ABO: A (07/25/22) Antibody Screen: Negative (02/15/23) Blood Type: A Positive (02/15/23) Chlamydia Trachomatis Amplified Probe: NEGATIVE (02/01/23) Hct: 35.9 % (02/15/23) Hepatitis B Surface Antigen: NEGATIVE (07/25/22) Hepatitis C Ab: NEGATIVE (07/25/22) Hgb: 11.9 Gm/dL (02/15/23) HIV 4th Generation Ab-Ag Result: NEGATIVE (07/25/22) RH Test Only: Positive (07/25/22) RPR Titer Result: NOT INDICATED (12/05/22) Rubella IgG Ab: POSITIVE (07/25/22) Syphilis Screen by [facility]: NEGATIVE (12/05/22) Urine Culture: Urine Culture (07/28/22) Problem List Active Active Problem List Breech presentation: (Medical) History of palpitations: (Medical) Obese class I: (Medical) : (Obstetric) (05/18/22) : (Medical) Procedure/Surgical History Delaplane tooth: 03/27/17 Adenoidectomy: 2000 Home Medications Multivitamin, : 1 tablet, By Mouth, Daily Allergies Bactrim??(hives) Social History Alcohol Use: Past. Frequency: 1-2 times per week. Electronic Cigarette/Vaping Electronic Cigarette Use: Never. Employment/School Status: Employed. Other: works in [employer]. Exercise Self assessment: Excellent condition. Home/Environment Living situation: Home/Independent. Lives with: Spouse. Other: one cat at home too. Nutrition/Health Diet: Regular. Sexual Sexually involved in last 6 months: Yes. Gender identity: Identifies as female. Self described orientation: Lesbian, markham or homosexual. Preferred pronoun: She/her. Other sexual concerns: conceived through IUI, partner is transgender male. Substance Abuse Use: Never. Tobacco Use: Never (less than 100 in lifetime). Family History Mother: Disorder of immune function Father: None Pat. Grandfather: Alcohol abuse Plan OB Plan Circumcision Plan: None (02/16/23) Contraceptives: None (02/16/23) Infant Feeding Plan: Breast milk (02/16/23) Patient Requests: Girl! NoraEncouraged CBEPlanned CS for breech, would like CNM present if possibleContraception not needed (02/16/23) * Annmarie De La Cruz DO: PERFORM Event Display: History and Physical Hospital Authored Date: [id number] Attending Attestation:??I have seen and evaluated this patient. ??I have discussed the case and itsmanagement with the resident and agree with the findings and plan as documented in the resident???snote. ?? Inezits, DO?? Hospital Progress note * Elvi Poole RN: PERFORM, SIGN, VERIFY Event Display: Progress Note Hospital Authored Date: Patient: ML SINGLETARY Age: 27 years Sex: Female : 1995 Associated Diagnoses: None Author: Elvi Poole RN OB stable upon discharge. Incision C/D/I, no s/sx of infection noted. Patient educated on warning signs, care, care and need for follow up appointments for self and . Pt expressed understanding. Cuddles tag removed and bands verified. Pt discharged home with significant other. Tonasket placed in car seat by parent prior to discharge. * Ursula Abreu RN: PERFORM, SIGN, VERIFY Event Display: Progress Note Hospital Authored Date: [id number] Patient: ML SINGLETARY Age: 27 years Sex: Female : 1995 Associated Diagnoses: None Author: Ursula Abreu RN Findings Problem Related to Alteration in Comfort : Alteration in Comfort/new 02/18/2023 22:00 EST Alteration in Comfort Related to Other: s/p c/s Goals & Outcomes: Comfort Pt will report acceptable level of comfort & pain control, Pt will state importance of adhering to pain strategy regime, Pt will demonstrate necessary skills to manage pain, Non-verbal indicators will indicate comfort/pain control Interventions Implemented: Comfort Assess pain using appropriate pain scale/tools, Assess aggravating factors & prevent them accordingly, Assess alleviating factors & promote them accordingly Goals/Interventions, Comfort Yes Comfort, Problem Start 02/17/2023 16:23 Reviewed plan with, Comfort Patient Patient Progression, Comfort Pt progressing according to plan Comfort, Problem Ongoing Yes . OB stable. Fundus firm and lochia is mild. Patient reports no clots or saturating of krista pads in an hour. +voiding, +flatulence. Pt OOB and ambulating around room. Pain is well controlled thus far this shift, pt educated on pain management and expressed understanding. Mother bonding with ap propriately. Call finney within reach. Able to make needs known. See CIS for full assessment. * Elvi Poole RN: PERFORM, SIGN, VERIFY Event Display: Progress Note Hospital Authored Date: [id number] Patient: ML SINGLETARY Age: 27 years Sex: Female : 1995 Associated Diagnoses: None Author: Elvi Poole RN OB stable. Fundus firm and lochia is mild. Pt reports no clots or saturating a krista pad in an hour.+ voiding, denies flatus. PT encouraged to ambulate in hallway. Pain has been controlled thus far this shift, pt educated on pain management and expresses understanding. Mother and bonding mayte ropriately. Call finney within reach, able to make needs known. Will continue to monitor pt. See CIS for full assessment. Note * Elvi Poole RN: PERFORM Event Display: Discharge/Transfer Note Hospital Authored Date: [id number] Nursing Discharge Note Entered On: 02/19/2023 12:40 EST Performed On: 02/19/2023 12:40 EST by Elvi Poole RN Nursing Discharge Note 2 Discharge Time : 02/19/2023 12:40 EST Discharge Level of Care at Discharge : Home/Long-Term/Foster Care Patient Left Unit Via : Ambulatory Patient Accompanied Off Unit with : Significant other DC Instructions Provided & Signed by Pt : Yes Patient Understands D/C Instructions : Yes Patient Instructions Discharge Signed : Yes Did Pt have Specialty Bed or Wound Vac : No Elvi Poole RN - 02/19/2023 12:40 EST * Viviana Aguila MD: PERFORM Event Display: Discharge/Transfer Note Hospital Authored Date: [id number] Patient: ??ML SINGLETARY ? Age:??27 Years?Sex:??Female?:??1995?? Admit Date Admission Date: 02/17/2023 Discharge Date 02/19/23 OB Reason for Admission OB Reason for Admission Reason for admission: Primary Reason for Planned : Malpresentation OBN Hospital Course 27 year-old at 39+2 presenting for scheduled primary section for breech presentation.??Proceeded to have an uncomplicated section on 02/17. Remaining hospital course was uncomplicated. On day of discharge, patient meeting appropriate and postoperative??milestones and appropriate for discharge to home. Prior to discharge, we discussed and postoperative??self care, as relevant,??signs/symptoms of preeclampsia, and depression. Patient was counseled on warning signs for calling or returning to care including but not limited to fever, heavy vaginal bleeding, worsening pain, signs of infection, and mood concerns. Counseled to place nothing in the vagina in the next 4-6wks. Patient verbalized understanding. ?? Patient is feeling well with no acute concerns. States her pain is well controlled with PO pain medications. Her lochia is??like a normal period. She is ambulating, voiding spontaneously, and tolerating regular diet. She has passed flatus.??Denies fever, chills, chest pain, shortness of breath,??persistent headache, vision changes, RUQ pain, calf tenderness, nausea, vomiting, or other??acute concerns.??Mood is??appropriate and she is bonding well with her baby. Patient??reports that she has a??good support system at home. Objective/Physical Exam on Day of Discharge Vitals & Measurements T:??98.1?F?? HR:??75??(Peripheral)?? RR:??18?? BP:??111/62?? SpO2:??98%?? HT:??158??cm?? WT:??80??kg?? BMI:??32.05?? Constitutional:??Normal affect, no acute distress, well-developed. Respirations:??Normal exam, not labored. Breath sounds are:??Clear to auscultation, equal bilaterally, not with rales, crackles, wheezing,??or rhonchi. Cardiovascular:??Regular rate and rhythm, no murmurs.?? Abdomen:??Abdomen soft and nontender, fundus firm and palpable below umbilicus. Appropriate incisional tenderness with mild distension.??Steri-strips in place with no active bleeding, drainage, or erythema. Extremities:??No clubbing, cyanosis or edema present.??No calf tenderness. Skin: Normal for ethnicity without apparent lesions. Neurological/Psychiatric:??Appearance appropriate, mood and affect stable. Assessment/Plan/Discharge Diagnosis Assessment:??27 year-old G1 now P1 POD2 following uncomplicated primary section for breechpresentation. Patient meeting appropriate and post- operative milestones. Isolated mild range during labor without a diagnosis of gestational hypertension. Appropriate for discharge to hometoday. ?? care following delivery (Z39.2):? Continue routine & postoperative care Pain Management: continue Ibuprofen & Tylenol, oxy as needed (x) Rx on discharge Infant feeding: breast feeding VTE prophylaxis: SCDs while in bed, encourage ambulation Contraception: N/A, partner does not have sperm ?? History of palpitations (Z87.898):? s/p ECHO, findings: essentially normal ?? Future Appointments Monday 2:10 PM EST ?? With: Manasa RAMOS, Pippa Trinidad Where: [facility] [address] [address]- Status: Pending Monday 2:30 PM EST ?? With: Florencia Bean CNM Where: [facility] [address] [address]- Status: Pending Delivery Summary Delivery Summary Maternal Information ??Delivery Information ?Gestational Age at Delivery: ??39W 2D ?Delivery Complications: ??None ?Blood Loss - Quantitative: ??288 mL ? Baby A ??Delivery Information ?Delivery Type: ??, low transverse ?Reason for : ??Breech presentation ? Priority: ??Scheduled ?Date, Time of : ??02/17/23 14:05:00 ?Delayed Cord Clamping: ??Yes ?Placenta Delivery Date/Time: ??02/17/23 14:08:00 ?Placenta Delivery Method: ??Assisted ?Placenta Appearance: ??Normal ?Placenta to Pathology: ??No ??Labor Information ?3rd Stage, Length of Labor: ??3 min ?? Information ? Outcome: ??Live ? Weight: ??2.917 kg ? Score 1 minute: ??8 ? Score 5 minute: ??9 ? Score 10 minute: ??9 ?Transferred To: ?? Care area with Family ?Umbilical Cord Description: ??3 vessel cord ? Complications: ??None ?Gender: ??Female ? Procedures Performed Epidural: Spinal Section Primary ?? Discharge Medications ???Acetaminophen (Tylenol 325 mg oral capsule)???Docusate (Colace sodium 100 mg oral capsule)???Ibuprofen (ibuprofen 600 mg oral tablet)???Multivitamin, ( Plus Low Iron oral tablet)???Oxycodone (oxyCODONE 5 mg oral tablet)???Polyethylene Glycol 3350 (MiraLax oral powder for reconsti tution)???Simethicone (simethicone 80 mg oral tablet, chewable) Immunizations during Hospitalization Vaccine Date Status influenza virus vaccine, inactivated 12/19/2022 Recorded tetanus/diphtheria/pertussis, acel(Tdap) 12/05/2022 Recorded tetanus/diphtheria/pertussis, acel(Tdap) 12/05/2022 Recorded tetanus/diphtheria/pertussis, acel(Tdap) 12/05/2022 Recorded tetanus/diphtheria/pertussis, acel(Tdap) 12/05/2022 Recorded SARS-CoV-2 (COVID-19) mRNA-1273 vaccine 03/25/2021 Recorded influenza virus vaccine, inactivated 12/29/2020 Recorded SARS-CoV-2 (COVID-19) mRNA-1273 vaccine 05/25/2020 Recorded SARS-CoV-2 (COVID-19) mRNA-1273 vaccine 04/27/2020 Recorded influenza virus vaccine, inactivated 01/16/2020 Recorded influenza virus vaccine, inactivated 01/02/2019 Recorded influenza virus vaccine, inactivated 01/10/2018 Recorded Measles/Mumps/Rubella Virus Vaccine 12/29/2016 Recorded tetanus/diphtheria/pertussis, acel(Tdap) 12/12/2016 Recorded Contraception None ? Infant Feeding Method Feeding Method: (02/17/23 17:00:00) Patient Instructions Discharge:??Home ?? Please call the office with any concerns including:?? Heavy vaginal bleeding?? Fever of 100.4 or greater Foul-smelling vaginal discharge Difficulty or burning with urination Nausea and vomiting with inability to tolerate food Pain not controlled by the medications listed below Shortness of breath or chest pain. Swelling of the extremities. ?? General Instructions: - Avoid lifting anything 15 lbs or greater until cleared by doctor. - Limit stairs to once per day the first day. - Stairs are OK but avoid multiple trips/ skipping steps and go slowly. - Walk as often as you are able. - Do not put anything in the vagina. No intercourse, tampons, or douching - Continue using stool softeners as needed??(examples: colace/docusate, senna, miralax) - Shower as usual, do NOT scrub incision. Avoid tubs / soaking / pools. - Remove steri strips 5-7 days after surgery if they have not fallen off on their own. ?? Pain Control Instructions: First line for pain control should be with [id number] medications: Tylenol (acetaminophen, upto 1000mg every 6 hours) and ibuprofen (up to 600mg every 6 hours). Continue Tylenol and ibuprofen scheduled and only take opiates as prescribed??for breakthrough pain in the first few days after youget home.??You may fill less than the prescribed amount, and you should store them in a safe location in a childproof prescription bottle.??Any unused opiates should be returned to a prescription drop-box, such as the one at the [facility]. No one other than you should take your opiates, and youshould not use them for anything other than your postoperative pain. You should not drive while taking opiates. ?? Please call the office with pain that is not controlled with this regimen. ?? Thank you for allowing us to be part of your care team. * Shayla Carpenter DO: PERFORM Event Display: Discharge/Transfer Note Hospital Authored Date: [id number] Attending Attestation: I have seen and evaluated this patient.?? I have discussed the case and its management with the resident and agree with the findings and plan as documented in the resident???s note. * Elvi Poole RN: PERFORM Event Display: Patient Education/Instruction Authored Date: [id number] Inpatient Adult Discharge Instructions [address] [address] Name: ML SINGLETARY : 1995 Visit: 02/17/2023 11:49:00 Current Date: 02/19/2023 09:01 Account: [id number] Inpatient Adult Discharge Instructions We would like to thank you for allowing us to assist you with your healthcare needs. The following includes patient education materials and information regarding your injury/illness. Our entire staffstrives to provide an excellent experience for our patients and their families. PLEASE ENSURE YOU FOLLOW-UP PER THE INSTRUCTIONS BELOW! ?? YOUR OPINION IS IMPORTANT TO US! Please complete the survey you may receive by mail or email. Your feedback will be used to make improvements to the healthcare experiences of our patients and their families. Surveys are administered by [employer] ?? If further treatment with your primary care physician or another doctor is recommended, it is important for you to keep the appointment. Call your primary care physician or return to the Emergency Department immediately if your condition worsens, fails to improve, or new symptoms develop. If you need to find a doctor, you can call [facility] Link for a referral at [phone] or toll free at [phone] or log in to [email or web address].. ?? [facility], in keeping with [facility] guidance, no longer requires face masks for staff, patientsor visitors in most situations. Similiar to time spent indoors at other locations, there is the chance that you were exposed to repiratory viruses during your time with us (such as flu or COVID-19). If you develop symptoms concerning for a viral respiratory infection, please seek testing (and treatment if indicated) from your medical provider or home test kit. ?? You can view and manage your care through the patient portal or by using a health care mayte of your choosing. [employer] is a website that allows you to securely view your medical information including your hospital discharge summary, office visit summaries, medications and follow-up visits. You can also request appointments, renew medications, and request access to your medical information using a health care mayte of your choosing, or just ask a question. You can enroll at [email or web address] or register during your next office visit. You have been discharged from [facility], Patient Care Unit: [facility]. If you have any questions regarding these instructions after you leave, please call us and we will be happy to assist you. [facility] Your Care Team Attending Physician Annmarie De La Cruz DO Discharging Providers Ayla CESAR, Viviana Reason for Admission Primary Your Diagnosis History of palpitations Breech presentation Positive GBS test care following delivery Tests Performed Below is a partial list of the tests performed during your hospitalization. You may have had other tests and procedures not included in this list. Please discuss all test results with your provider. Primary Care Provider Chet Braxton MD , Eileen Cuevas Advance Directive Health Care Proxy on File Yes - Health Care Proxy Discharge Vitals Temperature: 98.1 DegF Height: 158 cm Pulse Rate: 75 bpm Weight: 80 kg Respiratory Rate: 18 br/min Body Mass Index:??32.05 kg/m2??Critical Systolic Blood Pressure: 111 mm Hg Body surface area: 1.87 Diastolic Blood Pressure: 62 mm Hg ?? Oxygen Saturation: 98 % ?? Studies Pending All tests and labs ordered during this hospital stay have been completed unless listed below. Please discuss all pending results with your provider listed above in these instructions. ?? No incomplete studies found What to do next Instructions From Your Doctor Discharge:??Home ?? Please call the office with any concerns including:?? Heavy vaginal bleeding?? Fever of 100.4 or greater Foul-smelling vaginal discharge Difficulty or burning with urination Nausea and vomiting with inability to tolerate food Pain not controlled by the medications listed below Shortness of breath or chest pain. Swelling of the extremities. ?? General Instructions: - Avoid lifting anything 15 lbs or greater until cleared by doctor. - Limit stairs to once per day the first day. - Stairs are OK but avoid multiple trips/ skipping steps and go slowly. - Walk as often as you are able. - Do not put anything in the vagina. No intercourse, tampons, or douching - Continue using stool softeners as needed??(examples: colace/docusate, senna, miralax) - Shower as usual, do NOT scrub incision. Avoid tubs / soaking / pools. - Remove steri strips 5-7 days after surgery if they have not fallen off on their own. ?? Pain Control Instructions: First line for pain control should be with [id number] medications: Tylenol (acetaminophen, upto 1000mg every 6 hours) and ibuprofen (up to 600mg every 6 hours). Continue Tylenol and ibuprofen scheduled and only take opiates as prescribed??for breakthrough pain in the first few days after youget home.??You may fill less than the prescribed amount, and you should store them in a safe location in a childproof prescription bottle.??Any unused opiates should be returned to a prescription drop-box, such as the one at the [facility]. No one other than you should take your opiates, and youshould not use them for anything other than your postoperative pain. You should not drive while taking opiates. ?? Please call the office with pain that is not controlled with this regimen. ?? Thank you for allowing us to be part of your care team. Discharge Orders Scheduled Follow-Up Appointments Monday 2:10 PM EST ?? With: Pippa Goel CNM Where: [facility] Non [address] [address]- Status: Pending Monday 2:30 PM EST ?? With: Florencia Bean CNM Where: [facility] Non [address] [address]- Status: Pending You Need to Schedule the Following Appointments Follow Up with??See Instructions Section Discharge Medications GEMINIML :1995 Visit Date:02/17/2023 Medications: Please continue your medications until treatment is completed or stopped by your provider. Medications not listed below should be discontinued. Discuss any questions related to medications with your provider. What How Much When Why Instructions Next Dose New Acetaminophen (Tylenol 325 mg oral capsule) See instructions care following delivery 2 capsule (650 mg) taken By Mouth Every 4 hours not to exceed 4000 mg/ day, As needed for as needed for pain ?? Pickup at [facility]/pharmacy #0957 New Docusate (Colace sodium 100 mg oral capsule) 1 capsule Oral Twice a day as needed for for constipation care following delivery Pickup at [facility]/pharmacy #0957 New Ibuprofen (ibuprofen 600 mg oral tablet) See instructions care following delivery 1 tablet taken By Mouth Every 6 hours not to exceed 3200 mg/ day, As needed for as needed for pain ?? Pickup at [facility]/pharmacy #0957 New Oxycodone (oxyCODONE 5 mg oral tablet) 1 tab(s) Oral Every 6 hours as needed for as needed for pain care following delivery Pickup at [facility]/pharmacy #0957 New Polyethylene Glycol 3350 (MiraLax oral powder for reconstitution) 17 gram Oral Daily care following delivery dissolve in water before taking ?? Pickup at [facility]/pharmacy #0957 New Simethicone (simethicone 80 mg oral tablet, chewable) 1 tab(s) Chew 4 times a day as needed for as needed for gas care following delivery Pickup at [facility]/pharmacy #0957 Unchanged Multivitamin, ( Plus Low Iron oral tablet) 1 tab(s) Oral Daily [facility] [address], [place] [id number] [phone] Test Results Below is a partial list of the most recent Laboratory test results done prior to this discharge. You may have had other tests and procedures not included in this list. Please discuss all test resultswith your provider. Allergies (NKA means No Known Allergies) Bactrim??(hives) Problems Active Problems??(5) Breech presentation?? History of palpitations?? Obese class I? Education Materials Below is the list of Educational Leaflet Providered with your Discharge Instructions. [facility]- Discharge Instructions?? Valuables and Belongings I fully understand and agree that [facility] accepts no responsibility for all my personal property including clothing, toilet articles, radios, jewelry, dentures, hearing aids, rings, money, or any other property that is in my possession or is brought to me after admission. I understand certain valuables may be placed in a hospital safe for a short period of time. I understand that the hospital is not liable for loss or damage due to accident, fire, or other natural occurrence while said property is in the safe. I accept full responsibility for any personal property that I keep with me, and will not hold the hospital responsible in case of loss or disappearance. I acknowledge that i have been encouraged to send valuables and belongings home. ?? Date for Pt to Sign Valuables/Belongings: 02/17/23 12:19:00 ?? Other Discharge Information ? Pulmonary Rehab Status?? Pulmonary Rehab Discharge Status?? Respiratory Rate: 18 br/min ? Common Emergency Awareness Tips IS IT A STROKE? Act FAST and Check for these signs: FACE Does the face look uneven? ARM Does one arm drift down? SPEECH Does their speech sound strange? TIME Call at any sign of stroke ?? Heart Attack Signs Chest discomfort: Most heart attacks involve discomfort in the center of the chest and lasts more than a few minutes, or goes away and comes back. It can feel like uncomfortable pressure, squeezing, fullness or pain. Discomfort in upper body: Symptoms can include pain or discomfort in one or both arms, back, neck, jaw or stomach. Shortness of breath: With or without discomfort. Other signs: Breaking out in a cold sweat, nausea, or lightheaded. Remember, MINUTES DO MATTER. If you experience any of these heart attack warning signs, call to get immediate medical attention! ?? Smoking can increase your chances of developing chronic health problems and can cause harmful effects to other family members in your house. If you smoke, you are strongly encouraged to quit. Please call [facility] Link at [phone] or [phone] ([phone]) or log in to [email or web address] for referrals to smoking cessation programs. ?? 345 Suicide & Crisis Lifeline is available 17/10 if you or someone you know needs to find a reason to keep living. By calling 281 you'll be connected to a skilled, trained counselor at a crisis center in your area. INPATIENT DISCHARGE INSTRUCTIONS SIGNATURE ML JAY Location:[facility] Registration Date and Time:02/17/2023 11:49 EST Primary Care Physician: Chet Braxton MD , Eileen Cuevas, Attending Physician: Annmarie De La Cruz DO, I ML SINGLETARY, have received the above patient education materials/instructions and have verbalized understanding. If ambulance or transport services are being used I further acknowledge being given a choice of service. ?? If you need to contact me, please call me at this number: . 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 209 Discharge Care Instructions for the New Mom and Baby Please take a few moments to read through these helpful instructions before you leave the hospital.?? Your nurse will be glad to answer any questions you may have.?? You can also find this and more information throughout the purple Becoming a Family booklet, [facility] New Beginnings Guide and the Consultation Services Guide given to you after the of your baby.?? You may also phone our nurses stations if you have further questions.?? [facility]:?? First Floor ([phone]), Second Floor ([phone]).?? Please call your provider if you have any questions or concerns?? before your next appointment. For ongoing support please ???Like?? us on our Facebook page ???[facility] New Beginnings?? andsign up for our email newsletter at [email or web address].?? News and information will besent to you until your baby???s third birthday. Instructions for the New Mother Activity: For the next 2 weeks at home ??? no heavy lifting, avoid unnecessary stair climbing, and no driving(especially if you are taking medicine that may make you sleepy or feel that you are sleep deprived).?? For the next 4-6 weeks - no tampons, no douches, no sexual intercourse. Use your krista bottle to rinse your perineum until your vaginal flow stops.?? If you have stitches in your bottom, they generally dissolve within 7-10 days.?? Apply Tucks/witch linnea pads until your soreness subsides.?? Use your bathroom at home every 3 to 4 hours, rinse, and change your pads. Warm showers feel great on achy muscles, sore backs and sore bottoms. Exercise: Walking is the best form of exercise.?? Wait until your follow up appointment with your provider in4-6 weeks before engaging in more strenuous activity. Diet: Drink plenty of fluids to avoid constipation and to help support your recovery. Eat plenty of iron rich foods such as red meat, iron fortified cereals like Total and Cream of Wheat, raisins, prunes, greens and spinach.?? These will help to build your blood count back up as all women lose some blood after delivery.?? Also add foods rich in Vitamin C such as strawberries, oranges, papayas, kale and finney peppers. Continue to take your vitamins if you are .?? If you are not follow the instructions of your provider.?? If you were prescribed iron supplements such as ferrous sulfate, it is important to continue these until your doctor or bar hostess tells you to stop. Breast Care for Nursing Mothers: Wear a comfortable fitting, supportive nursing bra.?? An underwire bra is not recommended. Express drops of breast milk and rub over your nipples and areola (brown area) before and after each feeding to protect and heal sensitive skin and then air dry your nipples.?? If you are experiencing any soreness, you may purchase nipple cream such as TenderCare or Lansinoh.?? Use it in the following manner:?? finish your feeding or pumping session, self-express colostrum onto your nipple and air dry, apply the nipple cream to the nipple and areola.?? Use only small amounts for best results. If you are having difficulty getting the baby to latch onto the breast due to swelling of the areola, try applying pressure with your fingers for a couple of minutes above and below your nipple and walk your fingers outward softening the area and pushing the swelling away.?? This technique is knownas reverse pressure softening.?? For demonstrations of this and other techniques such as the [place] Hand Expression technique, please refer to the resources section of the Consultation Services Guide that you received from services. When your milk first comes in, usually within 3 to 5 days after delivery, you may experience engorgement.?? Your breasts may become swollen and very tender.?? Cold compresses work great to help with discomfort and reduce swelling. It will get better in a couple of days.?? Continue to nurse your baby frequently.?? Call [facility]???s Consultation Service at [phone], press 1 to schedule an outpatient appointment or press 3 and a oncology consultant will return your call that day or the next if you call after 3pm. Breast Care for Bottle Feeding Mothers: Engorgement may occur within the first week after delivery.?? Your breasts may become hard and verytender.?? A cool compress of cleaned raw green cabbage leaves applied to the breast and changed as leaves wilt has been proven helpful for many women.?? Ice packs or frozen bags of peas also work nicely to ease the discomfort.?? The soreness will only last a couple of days. Keep your back turned to the water while showering to decrease breast stimulation. Wear a snug fitting bra such as a sports bra. Incision Care Following Tubal or Section: You may shower as directed by your doctor or bar hostess.?? Pat your incision dry with a clean towel.??You will not need a bandage after the first day. Call your doctor or bar hostess with any signs of infection such as a hard, hot swollen tender incision, especially if the skin around the incision looks pink or red.?? Yellow drainage with an odor may also be a sign of infection to report. Call your doctor or bar hostess if the incision begins to separate. If you have steri-strips on the incision, they will likely fall off in the first week.?? If they have not fallen off by 10 days after delivery, you may remove them. Control: Your doctor or bar hostess will discuss control methods with you when you are discharged from thespital or at your checkup.?? Be sure to let your provider know if you are . You had a Paragard IUD placed on .?? This control method is effective for 10 years. You had a Liletta placed on .?? This control method is effective for up to 5 years. You had a Nexplanon placed on .?? This control method is effective for up to 3 years. You received a Depo Provera injection on .?? This control method is effective as longas you repeat it every 3 months.?? Schedule your next dose before . You have a prescription for control pills .?? It is important to take a pill everyday at around the same time of day for effective control protection.?? Pain Management: Cramping after is common and increases in strength with each baby you have.?? If you experience painful cramps, and have no allergies to acetaminophen (Tylenol) or ibuprofen (Motrin), you may continue to take these medications as you did in the hospital.?? Ibuprofen is also helpful with back aches following epidurals, perineal pain following a vaginal delivery, and moderate incisional pain after a section or a tubal ligation.?? If you experience gas distention, especially after surgery, you may take an over the counter medication called simethicone.?? Take these chewable tablets 4 times a day as needed and directed on the package.?? Keep moving.?? Walking or rocking in a chair, will help to move the gas along.?? Julio tea made with heated julio marlyn (instead of water) and a tea bag, stirred to dissolve carbonation (bubbles) is a helpful drink to soothe a gassy stomach. Warning Signs of a Problem to Notify Your Doctor or Driller Helper of: Heavy vaginal bleeding ??? which is soaking a pad every hour with bright red blood. Passing blood clots the size of an egg or larger. An incision that is not healing. A temperature greater than or equal to 100.4 especially if accompanied by any of the following symptoms ??? painful, frequent urination; extreme back or flank pain; lower belly pain with a foul smellto your vaginal flow; a red hard hot area on your breast.?? Severe headache that does not go away after taking acetaminophen or ibuprofen.?? A headache that changes your vision, including seeing spots or blurring. Right sided upper abdominal pain along the rib cage area. Pain in your legs that is warm and tender to the touch. depression signs may include ??? loss of interest in your baby, weepiness, difficulty focusing, weight loss with no appetite, exhaustion, feeling overwhelmed or anxious, feelings of despair, or thoughts of harming yourself or your baby.?? These symptoms are important and should be discussed with your doctor or bar hostess. depression may develop over a period of time and needs prompt medical attention.?? Do not suffer in silence.?? In both the Becoming a Family booklet and the[facility] Guide there is a screening tool used to identify women at risk, called the [place] Scale which you have taken in the office prior to delivery and again during your hospital s camille.?? Three to four weeks after your delivery, and before your check with your provider, take this test and share your results with your provider.?? Be sure to mention any score of 10 or more.?? Many women, and even some partners, may experience the ???baby blues?? .?? This is a state of feeling overwhelmed and weepy.?? Discomfort from childbirth, hormonal changes, exhaustion, changes to your body and lifestyle are a few of the things that contribute to the highs and lows new parents go through.?? Don???t be afraid to ask your partner or family and friends for some help at home so you can get some rest and a few minutes to yourself.?? The blues will quickly pass. Personal Safety: Every person has the right to feel safe at home and live free from physical or emotional harm.?? Ifyou have suffered mental or physical abuse at home, you are not alone.?? There is help.?? Please call [facility] or the [facility] Program at [phone]. CARE Bathing: Give your baby a sponge bath until the cord falls off in about 1-3 weeks.?? It is not necessary to bathe your baby every day, usually every few days is sufficient. ??Keep the cord area dry.?? Some baby girls will have a small bloody vaginal discharge. No need to worry as this is normal. It is not necessary to use lotions on the baby???s skin.?? Powders and oils are not recommended.?? Babies often get rash on their skin which comes and goes quickly and does not require any special care.?? Diaper rash can be treated with a zinc oxide preparation such as Desitin or Balmex diaper cream. Circumcision Care: Your nurse will teach you how to care for your baby???s circumcision depending on the type of circumcision your doctor or bar hostess performed.?? Most circumcisions require A&D ointment for about 4-5 days.?? Be generous with the amount of A&D used as this will prevent the diaper from sticking when you go to change it. If a plastibell circumcision was done, the plastic ring around the penis will fall off in a week orso. Diapers: After the 1st??few days, the baby will start wetting more often.?? A breast fed baby will wet about6-8 times a day once mom???s milk comes in ??? usually day 4 or 5.?? This is a good sign that the baby is getting plenty to eat.?? You may notice an orangey-pink stain in the diaper which is normal for the first few days. The baby???s first bowel movements are sticky, black and tarry.?? As the baby starts to feed more often over the next couple of days, the stool will change to a seedy yellowish green color and eventually a loose mustard like stool for a breast fed baby and a more formed yellow stool for a bottle fed baby. your Baby: ??Congratulations on deciding to breastfeed your baby! You are providing your baby with the most nourishing food source on the planet, your breast milk.?? Cues such as rooting, suckling, licking and fussing may be telling you that your baby is ready to eat ??? and it is time to offer your breasts. The first weeks following the are a time for you and your baby to learn.?? The baby may be sleepy the first day after with 8 to 12 attempts ??? including 2 to 4 good feedings.?? Over the next couple of days the baby will become more wakeful, feed 8 to 12 times a day and have more wet and poopy diapers.?? Cluster feeding, especially during the evening/night time, is normal. ?? Listen for swallowing sounds and watch the baby as they become more relaxed at the breast ??? both good signs that the baby is getting a good amount of milk.?? Refrain from smoking or eating edible marijuana while you are . Even though marijuana is legal in the state of [place],??it is harmful for your baby.??It stays in breast milk for along period of time and THC can be found in the baby's urine for up to 3 weeks. Second hand smoke can also increase the risk??of Sudden Infant Syndrome / SIDS. ?? Nursing is wonderful but many moms and babies have some degree of difficulty with at first. Don???t give up!?? There are many resources available to help you overcome these temporary problems. Your drafter cartographic wants to hear from you if you are having difficulties and can offermany helpful suggestions.?? Some offices have consultants on staff. [facility]???s Consultation Service is available 7 days a week, 8am to 3pm at [phone].?? Press 1 to schedule an outpatient appointment.?? Press 3 to leave a message for the ergonomics consultant, a oncology consultant will return your call that day or the next if you call after 3pm. Support Groups ??? [facility] offers free gatherings for moms and babies weekly.?? All groups meet at the [facility] 2nd??floor, typically in the [facility] Conference Room, Monday???s 1 to 2 pm.?? [employer] is a worldwide organization with local community support, mother to mother support.?? Information can be found at https://www.lllusa.org Formula Feeding your Baby: Formula fed babies should eat every 3 to 4 hours.?? Look for cues that your baby is ready ??? such as rooting and sucking, licking and fussing.?? At the baby???s stomach is small and may take 10-15ml of formula.?? Over the next few days the baby will become more wakeful and feed more frequently, gradually increasing the amounts of formula taken at a feeding.?? Your drafter cartographic will provideinstructions on how to increase the amount.?? Refer to packaging for formula preparation directions, depending on the type of formula you purchase ??? powder, concentrate or ready to feed. Safety: ALWAYS REMEMBER - BACK TO SLEEP! Babies sleep safest on their backs.?? Every sleep.?? Every time.?? Every nap. Babies need a firm sleep surface with a tight fitting bottom sheet.?? NO loose bedding.?? NO pillows.?? NO bumper pads or rolls.?? NO heavy or fluffy blankets. NO stuffed toys. It is not safe for your baby to sleep in your bed, in a chair, or on a sofa.?? Your baby should notsleep with you or anyone else. Car Seat: Always place your baby in a rear facing car seat in the backseat of the car. Car seat inserts that come with the car seat can be used as they are crash tested with the seat.?? You should not buy additional inserts.?? Dress the baby in a weather appropriate outfit.?? Avoid bulky clothing such as snowsuits or jackets as the baby may squirm in the seat, loosening the shoulder straps and come out of the top of the harness if you need to brake hard or are in an accident.?? Once the baby issecured in the seat you can cover your little one with a blanket if needed.?? If your baby was bornprematurely, follow the directions given to you.?? If you have not already done so, check to make sure your car seat is installed correctly. Check with your local Fire and Police Department to see if they offer car seat inspections at a location close to you. Babies Can Move: ?? Never leave your baby unattended on any surface, raised or flat, or while bathing.?? They can squirm, fall or hurt themselves.?? Always fasten the safety belt when using an infantseat or swing ??? as they may lean forward and fall. Good Handwashing is the number one way you can protect the baby from too?? many germs and prevent infection.?? When family and friends visit ask that they wash their hands before holding your baby.??Also avoid crowds the first month of your baby???s life to protect from colds and flus. Shaking a baby out of frustration can cause severe and lasting damage, even to a baby.?? If you feel you are becoming angry or overwhelmed, place the baby in a safe place and walk away.?? Call a friend or family member.?? If they are not able to offer immediate help call the Parental Stress Hotline at?? , an anonymous 17/10 source of help. Warning Signs to notify your drafter cartographic of: Most babies develop a small amount of jaundice (a yellowish skin color) in the face and upper chest, by about 3 days of age.?? If the yellow color extends below the baby???s belly or if the baby is very sleepy and not feeding well, call your drafter cartographic. A rectal temperature of 100.4F as it could be a sign of infection. Projectile vomiting that continues with each feeding could indicate reflux or a problem with the formula. Extreme sleepiness or very fussy. Cold symptoms with nasal stuffiness, especially if the baby is having difficulty feeding. Constipation with hard stools. Blue or dusky color, call 911. If Your Baby Needs to Remain in the Hospital: Please leave your baby???s ID bracelets on if your baby needs to remain in the hospital after you are discharged home. The phone number to NICU is [phone]. The phone number to [facility] is [phone]. The phone number to [facility] is [phone]. moms should pump every 2-3 hours or 8-12 times in 24 hours.?? If unable to place the baby to breast, if you are having difficulty getting the baby to latch on, or if the baby remains inthe hospital after you are discharged ??? bring the pumped milk to the hospital, labeled with name,date and time.?? Carry it in a small cooler or diaper bag with an ice pack and bring it the next time you visit your baby.?? Consultation Services is available if you need to rent or purchase a pump or products.?? Call and leave a message at [phone] ??? press 3 and a oncology consultant will return your call that day or the next if you call after 3pm. ? * Jailyn Parker RN: PERFORM Event Display: Care Team Progress Note Authored Date: Patient: ??ML SINGLETARY ? Age:??27 Years?Sex:??Female?:??1995?? Subjective Mom was feeding as I arrived, she explained that her nipples are very sore and it was hurting as baby was latched. Assessment/Plan Infant was latched, but shallowly suckling. Mom has small breasts with tissue that is full but close to her chest wall. I provided pillow for support and edu on positioning asymmetrically. We unlatched and relatched. ?? Latch During Visit Today: ?? Mom was given education on??how to??obtain??deep asymmetric latch, how to differentiate nutritive??and non-nutritive suckling, as well as hunger versus satiety cues.??She was encouraged to use this information in addition to output and weight status to assess milk transfer and effectiveness of latch. ?? Helped Mother latch infant to the??left??breasts for a total of 10 minutes??And to the right breast. was left feeding at the right breast. Baby had??strong suckle but easily lost??deep latch when not providing breast compression. Mom was encouraged??to use pillows for support and breast co mpression to ensure stayed in optimal position. She was encouraged to unlatch and repositionif unable to retain deep latch with??edu provided.? Family was given late guidelines for supplementation if needed. She was enc??to hand express after feeding and??offer avail spoons of??colostrum, and use EBM and nipple cream on her nipples. The??right nipple??had a small close blister on it from shallow latch. Mom was advised to HE and allow that side to rest if unable to tolerate manipulation from even a??deep latch. ? OB Summary : 1 . Baby A - Weight: 2.917 kg Baby A - Date, Time of : 02/17/23 14:05:00 Baby A - Gender: Female Baby A - Complications: None EGA at Documented Date, Time: 39W 2D Weight at Delivery Baby A - Delivery Type: , low transverse Delivery Complications: None OB History History?(0,0,0,0)?No previous pregnancies history have been recorded Active Problem List Active Problem List Breech presentation: (Medical) History of palpitations: (Medical) Obese class I: (Medical) : (Obstetric) (05/18/22) : (Medical) Home Medications Multivitamin, : 1 tablet, By Mouth, Daily Medications Medications (10) Active SCHEDULED: (4) Acetaminophen 325 mg Tablet (Acetaminophen Tablet) ??650 mg, By Mouth, Every 4 hours Docusate Sodium 100 mg Capsule (Docusate Sodium Capsule) ??100 mg 1 capsule, By Mouth, 2 times a day Famotidine 20 mg Tablet (Famotidine Tablet) ??20 mg, By Mouth, 2 times a day Ibuprofen 800 mg Tablet (Ibuprofen Tablet) ??800 mg, By Mouth, Every 8 hours CONTINUOUS: (1) Lactated Ringers (1000 mL) Cont IV 1,000 mL (Lactated Ringers 1,000 mL) ??1,000 mL, IV Infusion, 125 mL/hr PRN: (5) FENTanyl 50 mcg/mL Inj (2 mL) (FENTanyl Inj) ??25 mcg 0.5 mL, IV Push, Every 5 minutes Metoclopramide 5 mg/mL Inj (2 mL) (Metoclopramide Inj) ??10 mg, IV Push, Every 6 hours nalOXONE ??400mcg/mL Inj (nalOXONE Inj) ??0.1 mg 0.25 mL, IV Push Slowly, Every 15 minutes OxyCODONE 5 mg IR Tablet (OxyCODONE IR Tablet) ??5 mg, By Mouth, Every 3 hours Simethicone 80 mg Chewable Tablet (Simethicone Tablet) ??80 mg, Chew, 3 times a day Patient Care team information Care Team Personnel Name: Chet Braxton MD , Eileen Cuevas Position: Reference Physician Member Role: PCP Address: Address: [address] [place] [address] [address] [place], [place] [address] Name: Ursula Abreu RN Position: [facility] OB RN Member Role: OB RN Name: Elvi Poole RN Position: [facility] OB RN Member Role: Patient Care Provider Care Team Related Persons Name: CHERI MERINO Address: home [address] [place] [address] Name: CEASAR SINGLETARY Address: [address] [place] [address] Name: ML SINGLETARY GIRL Address: AMERCN Address: [address] [place] [address] [place]
--- OUTSIDE RECORDS SUMMARY | 2023-09-21 07:38 | XMS_ITS | Continuity of Care Document ---
Author Organization [facility] Address [address] [place] [address], [address] [place] [address]- Care Team Providers Care Astronomy Instructor Name Role Phone Chet Braxton MD, Eileen Cuevas Primary Care Physician Encounter [facility] Date(s): 10/06/22 - 10/13/22 [facility] [place] [facility] [address] [facility], 4th [place] [address]- Attending Physician: Ayush RAMOS, Jana Marcum Allergies, Adverse Reactions, Alerts Substance Reaction Severity [...] tablet, 0 Refills, Maintenance, 09/30/22 16:30:00 EDT, [facility], 90, TAKE 1 TABLET BY MOUTH EVERY DAY, 154, cm, 08/31/22 17:18:00 EDT, Height, 67.6, kg, 08/31/22 17:18:00 EDT, Dry Weight Start Date: 09/30/22 Status: Ordered VITAMIN B-6 25 MG TABLET VITAMIN B-6 25 MG TABLET, 1, tablet, By Mouth, 3 times a day, # 90 tablet, 0 Refills, Maintenance, 08/01/22 12:21:00 EDT, 154, cm, 07/04/22 9:59:00 EDT, Height Start Date: 08/01/22 Status: Ordered Social History Social History Type Response Smoking Status Never (less than 100 in lifetime) entered on: 07/04/22 Sex Radiology * Event Display: [facility] Standard Anatomy Survey, Lvl 1 * Event Display: [facility] Standard Anatomy Survey, Lvl 1 Authored Date: [id number] OBSTETRICS REPORT PATIENT INFO: CMRN: [id number] BMRN: [id number] : [birth year] (27 yrs)(F) Name: ML SINGLETARY Visit Date: 10/06/2022 08:33 am PERFORMED BY: Performed By: Hedy Gonsalves RDMS Attending: Lisa Gaona MD Referred By: Jana Peacock Location: [address] INDICATIONS: Anatomical Survey Level 1 Z36.3 EVALUATION: Num Of Fetuses: 1 Heart Rate(bpm): 135 Cardiac Activity: Present Presentation: Cephalic Placenta: Posterior Amniotic Fluid SUHAIL FV: Within normal limits BIOMETRY: BPD: 48.6 mm G.Age: 20w 5d HC: 175.9 mm G.Age: 20w 1d AC: 146 mm G.Age: 19w 6d FL: 32.4 mm G.Age: 20w 1d HUM: 31.9 mm G.Age: 20w 5d CER: 20.8 mm G.Age: 19w 6d NFT: 4.6 mm LV: 6.7 mm CM: 4.6 mm CI: 76.61 % 70 - 86 FL/HC: 18.4 % 16.8 - 19.8 HC/AC: 1.20 1.09 - 1.39 FL/BPD: 66.7 % FL/AC: 22.2 % 20 - 24 Est. FW: 328 gm 0 lb 12 oz GESTATIONAL AGE: LMP: 20w 1d Date: 05/18/22 SAMEERA: 02/22/23 U/S Today: 20w 2d SAMEERA: 02/21/23 Best: 20w 1d Det. By: LMP (05/18/22) SAMEERA: 02/22/23 ANATOMY: Cranium: No anomalies seen Cavum: No anomalies seen Ventricles: No anomalies seen Choroid Plexus: No anomalies seen Cerebellum: No anomalies seen Posterior Fossa: No anomalies seen Nuchal Fold: No anomalies seen Face: No anomalies seen Lips: Upper lip appears normal Palate: No anomalies seen Heart: 4-chamber appeared normal RVOT: No anomalies seen LVOT: No anomalies seen Diaphragm: No anomalies seen Stomach: No anomalies seen Abdomen: No anomalies seen Abdominal Wall: No anomalies seen Cord Vessels: 3-vessel cord Kidneys: No anomalies seen Bladder: No anomalies seen Spine: No anomalies seen Upper Extremities: Arms appear normal Lower Extremities: Legs appear normal CERVIX UTERUS ADNEXA: Cervix Length: 4 cm. Appears closed Adnexa No anomalies noted Comment Vaginal scanning was done. COMMENTS: The patient had low risk NIPT genetic screening results. The standard anatomy survey is unremarkable. Lisa Gaona MD Electronically Signed Final Report 10/06/2022 10:18 am * Event Display: [facility] Standard Anatomy Survey, Lvl 1 Authored Date: Please click on pdf link to open report Patient Care team information Care Team Personnel Name: Chet Braxton MD , Eileen Cuevas Position: Reference Physician Member Role: PCP Address: Address: [address] [place] [address] [address] [place] [address]- Care Team Related Persons Name: CHERI MERINO Address: [place] [address] Name: CEASAR SINGLETARY Address: [place] [id number]
--- OUTSIDE RECORDS SUMMARY | 2023-09-21 07:38 | XMS_ITS | Continuity of Care Document ---
Author Organization [facility] Address [address] [address]- Care Team Providers Care Flume Maker Name Role Phone Chet Braxton MD, Eileen Cuevas Primary Care Physician [facility] Date[facility]): 11/01/22 - 01/27/23 [facility] [address] [address]- Attending Physician: Amna Veloz CNM Admitting Physician: Amna Veloz CNM Referring Physician: Manasa RAMOS, Pippa Trinidad [...] Physician Member Role: PCP Address: Address: [address] [place] [address]- Care Team Related Persons Name: CHERI MERINO Address: [address] [address] Name: CEASAR SINGLETARY Address: [address] [address]
--- OUTSIDE RECORDS SUMMARY | 2023-09-21 07:38 | XMS_ITS | Continuity of Care Document ---
Author Organization [facility] Address [address] [address]- Care Team Providers Care Icer Hand Name Role Phone Chet Braxton MD, Eileen Cuevas Primary Care Physician [phone] [facility] Date(s): 02/09/23 - 03/11/23 [facility] [address] [place] [address] Allergies, Adverse Reactions, Alerts Substance Reaction Severity [...] Reference Physician Member Role: PCP Address: Address: [address] [place] [address] [address] [place] [address]- Care Team Related Persons Name: CHERI MERINO Address: home [address] [place] [address] Name: CEASAR SINGLETARY Address: [address] [place] [address] Name: JEOVANNY SINGLETARY Address: [employer] Address: [place] [address] [place] [address] [place]
--- OUTSIDE RECORDS SUMMARY | 2023-09-21 07:38 | XMS_ITS | Continuity of Care Document ---
Author Organization [facility] Address [address] [facility], 4t h Floor [address] [place] [address]- Care Team Providers Care Warp Yarn Sorter Name Role Phone Chet Braxton MD, Josseline Cuevas Primary Care Physician [phone] [facility]counter [facility] Date(s): 04/03/19 - 04/13/19 [facility] [address] [place] [address], 4th Floor [address] [place] [address]- [facility] Attending Physician: AdmMaikel hill Admitting Physician: Admtr ArDat Referring Physician: Admtr, Ar8 Allergies, Adverse Reactions, Alerts Substance Reaction Severity Status Bactrim Active Social History Social History Type Response Smoking Status Never smoker; Tobacc o user in household: No entered on: 07/26/16 Sex
--- OUTSIDE RECORDS SUMMARY | 2023-09-21 07:38 | XMS_ITS | Continuity of Care Document ---
Author Organization [facility] Address [address] [address]- Care Team Providers Care Blood Bank Manager Name Role Phone Chet Braxton MD, Domi Primary Care Physician [phone] Encounter [facility] Date(s): 12/19/22 - 03/24/23 [facility] [address] [place] [address] Attending Physician: Not on Staff, Attending MD [...] Physician Member Role: PCP Address: Address: [address] [facility] [address] [place] [address]- Care Team Related Persons Name: CHERI MERINO Address: [address] [place] [address] Name: CEASAR SINGLETARY Address: [address] [place] [address] Name: JEOVANNY SINGLETARY Address: [employer] Address: home [address] [place] [address] Address: temporary 0
--- OUTSIDE RECORDS SUMMARY | 2023-09-21 07:38 | XMS_ITS | Continuity of Care Document ---
Author Organization [facility] Address [address] [facility], 4t [place] [address]- Care Team Providers Care Founder Ceo & President Name Role Phone Chet Braxton MD, Eileen Cuevas Primary Care Physician [phone] En[facility] Date(s): 02/08/23 - 02/15/23 [facility] [employer] [facility] [address] [facility], 4th [place], [place] [address] Attending Physician: Trevor CESAR [OB], Gladis Gill Referring Physician: Starla Cooper CNM Allergies, Adverse Reactions, Alerts Substance Reaction [...] Obese class I Confirmed Active Confirmed Active Vital Signs Most recent to oldest [Reference Range]: 1 Height 154 cm (02/08/23 8:16 AM) Weight 80.9 kg (02/08/23 8:16 AM) Body Mass Index [18.5-24.99 kg/m2] 34.11 kg/m2 *>HHI* (02/08/23 8:16 AM) Blood Pressure [90-138/55-84 mm Hg] 127/ 84mm Hg (02/08/23 8:16 AM) Blood pressure sites Arm, right (02/08/23 8:16 AM) Weight Obtained Via Standing scale (02/08/23 8:16 AM) Social History Social History Type Response Smoking Status Never (less than 100 in lifetime) entered on: 07/04/22 Sex Patient Care team information Care Team Personnel Name: Chte Braxton MD , Eileen Cuevas Position: Reference Physician Member Role: PCP Address: Address: [address] [place], [place] [address] Care Team Related Persons Name: CHERI MERINO Address: [address] [address] Name: CEASAR SINGLETARY Address: [address] [address]
--- OUTSIDE RECORDS SUMMARY | 2023-09-21 07:38 | XMS_ITS | Continuity of Care Document ---
Author Organization [facility] Address Unknown Care Team Providers Care Wire Chief Name Role Phone Chet Braxton MD, Eileen Cuevas Primary Care Physician [phone] Encounter [facility] Date(s): 12/01/20 - 12/31/20 [facility] Allergies, Adverse Reactions, Alerts [...]
--- OUTSIDE RECORDS SUMMARY | 2023-09-21 07:39 | XMS_ITS | Continuity of Care Document ---
Author Organization [facility] Address Unknown Care Team Providers Care Aqua Ammonia Operator Name Role Phone Chet Braxton MD, Eileen Cuevas Primary Care Physician En[facility] Date(s): 12/30/20 - 01/29/21 [facility] Allergies, Adverse Reactions, Alerts [...]
--- OUTSIDE RECORDS SUMMARY | 2023-09-21 07:39 | XMS_ITS | Continuity of Care Document ---
Author Organization [facility] Address [address] [facility], 4t h Floor [address] [place] [address]- Care Team Providers Care Technical Cable Jointer Name Role Phone Chet Braxton MD, Josseline Cuevas Primary Care Physician En[facility] Date(s): 07/27/20 - 08/03/20 [facility] [address] [facility], 4th Floor [address] [place] [address] Attending Physician: Mita Manrique MD Referring Physician: Not on Staff, Referring MD Allergies, Adverse Reactions, Alerts Substance Reaction Severity Status Bactrim Active Social History Social History Type Response Smoking Status Never smoker; Tobacc o user in household: No entered on: 07/26/16 Sex
--- OUTSIDE RECORDS SUMMARY | 2023-09-21 07:39 | XMS_ITS | Continuity of Care Document ---
Author Organization [facility] Address [address] [address]- Care Team Providers Care Adhesive Bonding Machine Operator Name Role Phone Chet Braxton MD, Eileen Cuevas Primary Care Physician [phone] En[facility] Date(s): 02/15/23 - 03/17/23 [facility] [place] [address] [address] Allergies, Adverse Reactions, Alerts Substance [...] Physician Member Role: PCP Address: Address: [address] [place] [address]- Care Team Related Persons Name: CHERI MERINO Address: home [address] [place] [address] Name: CEASAR SINGLETARY Address: [address] [place] [address] Name: JEOVANNY SINGLETARY Address: AMER[employer] Address: home [address] [place] [address] Address: [facility] 0
--- OUTSIDE RECORDS SUMMARY | 2023-09-21 07:39 | XMS_ITS | Continuity of Care Document ---
Author Organization [facility] [employer] Address [address] [place] [address], [address] [place] [address]- Care Team Providers Care Personal Lines Sales Executive Name Role Phone Chet Braxton MD, Eileen Cuevas Primary Care Physician Encounter [facility] Date(s): 11/01/22 - 12/01/22 [facility] [employer] [facility] [address] [facility], 4th [place], [place] [address] Allergies, Adverse Reactions, Alerts Substance Reaction Severity Status Bactrim hives Active Immunizations Given and Recorded Vaccine Date Status Refusal Reason SARS-CoV-2 (COVID-19) mRNA-1273 vaccine 03/25/21 R ecorded SARS-CoV-2 (COVID-19) mRNA-1273 vaccine 05/25/20 R ecorded SARS-CoV-2 (COVID-19) mRNA-1273 vaccine 04/27/20 R ecorded influenza virus vaccine, inactivated 12/29/20 Augusto rded influenza virus vaccine, inactivated 01/16/20 Aguusto rded influenza virus vaccine, inactivated 01/02/19 Augusto rded influenza virus vaccine, inactivated 01/10/18 Augusto rded Measles/Mumps/Rubella Virus Vaccine 12/29/16 Recor ded tetanus/diphtheria/pertussis, acel(Tdap) 12/12/16 Recorded Medications Plus Low Iron oral tablet 1 tablet, By Mouth, Daily, # 90 tablet, 0 Refills, Maintenance, 09/30/22 16:30:00 EDT, [facility], 90, TAKE 1 TABLET BY MOUTH EVERY [...] Physician Member Role: PCP Address: Address: [address] [place] [address] [address] Care Team Related Persons Name: CHERI MERINO Address: [place] [address] Name: CEASAR SINGLETARY Address: [place] [address]
--- OUTSIDE RECORDS SUMMARY | 2023-09-21 07:39 | XMS_ITS | Continuity of Care Document ---
Author Organization [facility] Address [address] [address]- Care Team Providers Care Log Deck Tender Name Role Phone Chet Braxton MD, Eileen Cuevas Primary Care Physician [facility]s): 06/05/23 - 07/05/23 [facility] [address] [address]- Attending Physician: Maikel Bansal Admitting Physician: Maikel [...] in household: No entered on: 07/26/16 Sex Cardiology * Event Display: Non Cardiovascular Results Authored Date: * Event Display: Cardiology Office Note, Non-BH Authored Date: Patient Care team information Care Team Personnel Name: Chet Braxton MD , Eileen Cuevas Position: Reference Physician Member Role: PCP Address: Address: [address] [place] [address] [address] [place], [place] [address] Care Team Related Persons Name: CHERI MERINO Address: [address] [place] [address] Name: CEASAR SINGLETARY Address: [address] [place] [address] Name: JEOVANNY SINGLETARY Address: [employer] Address: [address] [place] [address]
--- OUTSIDE RECORDS SUMMARY | 2023-09-21 07:39 | XMS_ITS | Continuity of Care Document ---
Author Organization [facility] Address [address] [place] [address]- Care Team Providers Care Family Sociologist Name Role Phone Chet Braxton MD, Josseline Cuevas Primary Care Physician [phone] [facility]counter [facility] Date(s): 04/03/19 - 04/10/[address] [address]- [facility] Attending Physician: Mita Manrique MD Allergies, Adverse Reactions, Alerts Substance Reaction Severity Status Bactrim Active Social History Social History Type Response Smoking Status Never smoker; Tobacc o user in household: No entered on: 07/26/16 Sex
--- OUTSIDE RECORDS SUMMARY | 2023-09-21 07:39 | XMS_ITS | Continuity of Care Document ---
Author Organization [facility] [employer] [employer] Address [address] [place] [address], [address] [place] [address]- Care Team Providers Care Welfare Worker Name Role Phone Chet Braxton MD, Eileen Cuevas Primary Care Physician [phone] [facility] Date(s): 07/13/22 - 08/12/22 [employer] [facility] [employer] [facility] [address] [facility], 4th [place], [place] [address] Attending Physician: Maikel Bansal Admitting Physician: AdmMaikel hill Referring Physician: AdmtrMaikel Allergies, Adverse Reactions, Alerts [...] tablet, 0 Refills, Maintenance, 07/04/22 11:35:00 EDT, [facility]acy[id number], Partial fill upon patient request if the [...] Reference Physician Member Role: PCP Address: Address: [address] [place] [address]- Care Team Related Persons Name: CHERI MERINO Address: [place] [address] Name: CEASAR SINGLETARY Address: [place] [address]
--- OUTSIDE RECORDS SUMMARY | 2023-09-21 07:39 | XMS_ITS | Continuity of Care Document ---
Author Organization [facility] Address [address] [place] [address]- Care Team Providers Care Perioperative Nurse Name Role Phone Chet Braxton MD, Eileen Cuevas Primary Care Physician Encounter [facility] Date(s): 10/26/21 - 11/25/21 [facility] [address] [place] [address]- Attending Physician: Maikel Bansal Admitting Physician: Maikel Bansal Referring Physician: Maikel Bansal Allergies, Adverse Reactions, Alerts Substance Reaction Severity [...] Health Status Inform ant Heavy menses(Confirmed) Active Social History Social History Type Response Smoking Status Never smoker; Tobacc o user in household: No entered on: 07/26/16 Sex Care Team Personnel Name: Chet Braxton MD , Eileen Cuevas Address: [address] [place] [id number]
--- OUTSIDE RECORDS SUMMARY | 2023-09-21 07:39 | XMS_ITS | Continuity of Care Document ---
Author Organization [facility] [facility] Address [address] [place] [address], [address] [place] [address]- Care Team Providers Care Asphalt Paver Name Role Phone Chet Barxton MD, Eileen Cuevas Primary Care Physician Encounter [facility] Date(s): 10/06/22 - 11/05/22 [facility] [employer] [address] [facility] [place], [place] [address] Attending Physician: Maikel Bansal Admitting Physician: [...] Refills, Maintenance, 09/30/22 16:30:00 EDT, [id number], 90, TAKE 1 TABLET BY MOUTH EVERY [...] Reference Physician Member Role: PCP Address: Address: [address] [place] [address] [address] Care Team Related Persons Name: CHERI MERINO Address: [place] [address] Name: CEASAR SINGLETARY Address: [place] [address]
--- OUTSIDE RECORDS SUMMARY | 2023-09-21 07:39 | XMS_ITS | Continuity of Care Document ---
Author Organization [facility] Address [address] [place] [address]- Care Team Providers Care Claim Clerk Name Role Phone Chet Braxton MD, Eileen Cuevas Primary Care Physician Encounter [facility] Date(s): 06/20/22 - 07/20/22 [facility] [address] [place] [id number] Allergies, Adverse Reactions, Alerts Substance [...] tablet, 0 Refills, Maintenance, 07/04/22 11:35:00 EDT, [facility]#[id number], Partial fill upon patient request if the [...] Acute 08/03/22 11:35:00 EDT, 07/04/22 11:35:00 EDT, [facility]/pharmacy #[id number], Partial fill upon patient request if [...] Role: PCP Address: Address: [address] [place] [address]- Care Team Related Persons Name: CHERI MERINO Address: home [address] [place] [address] Name: CEASAR SINGLETARY Address: [place] [address]
== END 2023-09-18 09:33 | disposition home or self-care (01) ==
PROVIDERS: PCP Internal Medicine; Visit Provider Registered Nurse Emergency
DX: J06.9 Acute upper respiratory infection, unspecified (principal)
CPT/HCPCS: 99213

== ENCOUNTER 2023-12-05 09:12 | Outpatient (AMB) | payer OTHER, SELFPAY ==
[2023-12-05 09:13] VITALS: BP 110/70; BMI 25.8
--- NOTE | 2023-12-05 09:13 | MHC.PC.OV ---
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 Accompanied by: Self / Same As Patient Allergies sulfamethoxazole [From BACTRIM] Allergy (Severe, Verified 12/05/23 09:22) HIVES trimethoprim [From BACTRIM] Allergy (Severe, Verified 12/05/23 09:22) HIVES Sulfa (Sulfonamide Antibiotics) Allergy (Unknown, Verified 12/05/23 09:22) hives Medication List - Last Reconciled 12/05/23 by Eileen Braxton MD No Known Home Meds Tobacco use date assessed: 12/05/23 Dental Screening Dental Screen Date: 12/05/23 Did you have a dental visit in the last 12 months?: Yes Did you have a dental problem in the last 6 months where you did not have access to dental care?: No Was dental information given to patient?: Patient has dentist HPI HPI Comments History of Present Illness Details This is a 28-year-old female that comes for her physical exam. Pap smear done 2020 was normal. 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 Some tingling but no numbness associated with this. No fever, bowel or bladder incontinence. Straight leg test negative bilaterally. Will be referred to pain management on order x-ray. COUNTS INCLUDE 234 BEDS AT THE [facility] Medical History (Updated 12/05/23 @ 09:33 by Eileen Braxton MD) Left knee pain Tachycardia Pure hypercholesterolemia Iron deficiency anemia due to chronic blood loss GERD (gastroesophageal reflux disease) Physical exam Surgical History History of History of adenoidectomy Family History Father Depression Mother Lupus Rheumatoid arthritis Sarcoidosis Social History Housing: Apartment Alcohol intake: never Patient Tobacco Use Status: Never used Tobacco e-Cigarette/Vaping Use: Never Used Second Hand Smoke Exposure: No service: No Current occupational status: employed Current occupational exposures/hazards: No Sexual orientation: Lesbian/Thompson/Homosexual Gender identity: Female Cognitive needs: No Hearing needs: No Vision needs: Yes (glasses) Female Reproductive History Menstrual Age of Menarche: 12 Questionnaire PHQ-9 Over the last 2 weeks, how often have you been bothered by any of the following problems? 1. Little interest or pleasure in doing things: not at all 2. Feeling down, depressed, or hopeless: not at all 3. Trouble falling or staying asleep, or sleeping too much: not at all 4. Feeling tired or having little energy: not at all 5. Poor appetite or overeating: not at all 6. Feeling bad about yourself - or that you are a failure or have let yourself or your family down: not at all 7. Trouble concentrating on things, such as reading the newspaper or watching television: not at all 8. Moving or speaking so slowly that other people could have noticed. Or the opposite - being so fidgety or restless that you have been moving around a lot more than usual: not at all 9. Thoughts that you would be better off or of hurting yourself in some way: not at all Total score: 0 Depression Screening Interpretation: Negative Depression Screening Done: Yes 02097 - PHQ-9 Billing: Yes Source: Developed by Drs. Gerardo Mcintyre, Trinity Salguero, Orestes Pope and colleagues, with an educational oliver from [email or web address]. Thrive Questionnaire Date Thrive assessed: 12/05/23 I am a: Patient What is your living situation today?: I have a steady place to live Within the past 12 months, did the food you bought not last and you didn't have the money to get more?: Never true Within the past 12 months, did you worry whether your food would run out before you got money to buy more?: Never true Do you have trouble paying for medicines?: No Do you have trouble getting transportation to medical appointments?: No Do you have trouble paying your heating and electricity bill?: No Do you have trouble taking care of your child, family member or friend?: No Do you have trouble with day-to-day activities such as bathing, preparing meals, shopping, managing finances, etc.?: No Are you currently unemployed and looking for a job?: No Are you interested in more education?: No Please select the resources that you would like help with: None Currently or been in a relationship where the following occur: No concerns reported THRIVE Score: 0 AUDIT C Alcohol Use Questionnaire (AUDIT-C) 1. How often do you have a drink containing alcohol?: Monthly or less 2. How many drinks containing alcohol do you have on a typical day when you are drinking?: 1 or 2 3. How often do you have six or more drinks on one occasion?: Never Total Score: 1 Score Reviewed/Action Taken: No VIOLETA-7 AMB Questionnaire VIOLETA-7 Date VIOLETA - 7 assessed: 12/05/23 Feeling nervous, anxious, or on edge: 0 = Not at all Not being able to stop or control worryin = Not at all Worrying too much about different things: 0 = Not at all Trouble relaxin = Not at all Being so restless that it is hard to sit still: 0 = Not at all Becoming easily annoyed or irritable: 0 = Not at all Feeling afraid as if something awful might happen: 0 = Not at all Total VIOLETA-7 score (0-4 normal; 5-9 mild; 10-14 moderate; 15-21 severe): 0 Source: Developed by Drs. Gerardo Mcintyre, Trinity Salguero, Orestes Pope and colleagues, with an educational oliver from [email or web address]. VIOLETA-7 Assessment Billing VIOLETA-7 Assessment Tool: VIOLETA-7 Assessment 78637 Review of Systems Const All systems reviewed & are unremarkable except as noted in HPI and below Card Denies chest pain at rest, Denies chest pain with activity, Denies edema, Denies irregular heart rhythm, Denies claudication, Denies dyspnea, Denies dyspnea on exertion, Denies orthopnea, Denies paroxysmal nocturnal dyspnea and Denies slow heart rate Resp Denies cough, Denies dyspnea and Denies dyspnea on exertion GI Denies abdominal pain, Denies change in bowel habits, Denies excessive flatus, Denies nausea and Denies vomiting Denies urinary incontinence, Denies urinary hesitancy and Denies urinary urgency Musc Reports back pain, Denies atrophy, Denies deformity, Denies limited range of motion and Reports tingling Skin/Breast Denies bleeding lesions, Denies changing lesions and Denies rash Neuro Reports tingling Physical exam (Primary Care) Vital Signs: Last Vital Signs BP 110/70 12/05/23 09:13 BMI result Body Mass Index 25.8 Tobacco/Smoking Status: Tobacco use Status Tobacco use date assessed 12/05/23 12/05/23 09:18 Patient Tobacco Use Status Never used Tobacco 12/05/23 09:18 e-Cigarette/Vaping Use Never Used 12/05/23 09:18 PHQ-9: PHQ-9 Score PHQ-9: Total score 0 12/05/23 09:26 Depression Screening Interpretation: Negative Thrive Assessment: Date of Thrive Assessment Date Thrive assessed 12/05/23 12/05/23 09:18 Currently or been in a relationship where the following occur: No concerns reported HENMT Head: Yes normal to inspection, Yes normocephalic and Yes atraumatic Ears: external ears normal Eyes General: appearance normal, both eyes and all related structures Eyelids: Yes eyelids normal Conjunctivae: conjunctivae normal Neck Neck: Yes normal visual inspection and Yes supple Resp Effort & Inspection: normal respiratory effort Auscultation: clear to auscultation bilaterally Cardio Jugular venous distension: no JVD Rate: regular rate Rhythm: regular rhythm Heart sounds: S1 normal heart sound present and S2 normal heart sound present GI Inspection: Yes normal to inspection Palpation (GI): Soft to palpation and nontender Auscultation: normal bowel sounds Back/Spine/Pelvis Thoracic/Lumbar Spine: straight leg raise negative bilaterally Skin General skin exam: no rashes or lesions noted Neuro General: no focal motor deficits Extrem General: Yes full ROM Psych Appearance: grossly normal Assessment and Plan Assessment & Plan (1) Physical exam: Code(s): Z00.00 - Encounter for general adult medical examination without abnormal findings Plan: Repeat in a year. (2) Lumbar pain: Code(s): M54.50 - Low back pain, unspecified Plan: X-ray ordered. Referred to pain management. Orders: Orders Complete Blood Count Auto Diff Today D64.9 - Anemia, unspecified IRON PROFILE Today D64.9 - Anemia, unspecified Lipid Panel Today Z00.00 - Encounter for general adult medical examination without abnormal findings Comprehensive [place]. Panel Fast Today Z00.00 - Encounter for general adult medical examination without abnormal findings XR lumbar spine 2-3V Today M54.50 - Low back pain, unspecified Vitamin D 25-OH Total Today E55.9 - Vitamin D deficiency, unspecified Referrals Pain Management Referral M54.50 - Low back pain, unspecified Coding Level of Care Code Est Pt Level 3 (38543) Est Pt Prev Care 18-39y(47379) Diagnoses Physical exam Z00.00 Lumbar pain M54.50 Additional Codes VIOLETA-7 Assessment Billing - VIOLETA-7 Assessment Tool: VIOLETA-7 Assessment 23747 ([id number]) Time Spent (min) 33
== END 2023-12-05 09:33 | disposition home or self-care (01) ==
PROVIDERS: PCP Internal Medicine; Visit Provider Internal Medicine
DX: Z00.00 Encounter for general adult medical examination without abnormal findings (principal); E55.9 Vitamin D deficiency, unspecified; D64.9 Anemia, unspecified; M54.50 Low back pain, unspecified
CPT/HCPCS: 99213; 99395

== ENCOUNTER 2023-12-06 12:13 | Outpatient (REF) | payer OTHER, SELFPAY ==
--- NOTE | ~2023-12-06 | XR_ITS ---
EXAMINATION: XR LUMBAR SPINE CLINICAL INFORMATION: Low back pain, unspecified. COMPARISON: None available. TECHNIQUE: AP and lateral views of the lumbar spine and lateral view of the lumbosacral junction. FINDINGS: Vertebral body heights are normal. No fracture or spondylolisthesis. Intervertebral disc heights are maintained without significant degenerative disc disease. Bone mineralization is normal. Soft tissues are unremarkable. Imaged portions of the sacroiliac joints are normal. XR/XR lumbar spine 2-3V IMPRESSION: Normal lumbar spine radiographs. Electronically signed by: Get Trejo MD 12/19/2023 11:46 PM EDT
== END 2023-12-06 12:14 | disposition home or self-care (01) ==
LOC: HO.XRAY 12:13
PROVIDERS: PCP Internal Medicine; Visit Provider Internal Medicine
DX: M54.50 Low back pain, unspecified (principal)
CPT/HCPCS: 72100

== ENCOUNTER 2023-12-26 07:51 | Outpatient (REF) | payer OTHER, SELFPAY ==
[2023-12-26 08:09] LABS: MANUAL DIFF FLAG NO
[2023-12-26 08:18] LABS: Basophils Percent Auto 0.3 % (0-2); Eosinophils Absolute Auto 0.5 X10*3/uL (0.0-0.4); Eosinophils Percent Auto 7.7 % (0-4); Hematocrit 38.6 % (37.0-47.0); Hemoglobin 12.9 g/dl (12.0-16.0); Imm Gran Abs Auto 0.02 X10*3/uL (0.00-0.03); Imm Gran Pct Auto 0.3 % (0.0-0.4); Lymphocytes Absolute Auto 2.3 X10*3/uL (1.2-4.9); Lymphocytes Percent Auto 32.9 % (20-40); Mean Corpuscular HGB Conc 33.4 g/dl (31.0-35.0); Mean Corpuscular Hemoglobin 30.4 pg (27.0-33.0); Mean Platelet Volume 8.7 fL (9.4-12.3); Monocytes Absolute Auto 0.4 X10*3/uL (0.1-1.2); Monocytes Percent Auto 5.7 % (2-11); Neutrophils Absolute Auto 3.7 x10*3/uL (2.0-8.3); Neutrophils Percent Auto 53.1 % (45-73); Platelet Count 301 X10*3/uL (160-400); Red Blood Count 4.24 X10*6/uL (4.20-5.50); Red Cell Distribution Width 12.2 % (11.0-16.0); White Blood Count 6.9 X10*3/uL (4.8-10.8)
[2023-12-26 09:02] LABS: Alanine Aminotransferase 9 U/L (0-31); Albumin Level 4.4 g/dL (3.5-5.0); Alkaline Phosphatase 60 U/L (39-117); Anion Gap 10 (12-20); Aspartate Amino Transferase 13 U/L (5-31); Bilirubin Total 0.5 mg/dL (0.0-1.0); Blood Urea Nitrogen 13 mg/dL (9-16); Calcium 9.3 mg/dL (8.4-10.2); Carbon Dioxide 27 mmol/L (22-29); Chloride 108 mmol/L (96-108); Cholesterol 176 mg/dL (<200); Estimated Glomerular Filt Rate > 60; Glucose Fasting 88 mg/dL (60-99); HDL Cholesterol 49 mg/dL (>40); Iron 92 mcg/dL (30-160); LDL Cholesterol Calculated 115 mg/dL (<100); Percent Iron Saturation 31 % (15-50); Potassium 4.3 mmol/L (3.3-5.1); Sodium 141 mmol/L (135-145); Total Iron Binding Capacity 298 mcg/dL (228-428); Total Protein 7.3 g/dL (6.5-8.0); Triglycerides 60 mg/dL (<150); Unsaturated Iron Binding 206 ug/dL
[2023-12-26 09:19] LABS: Vitamin D 25-OH Total 34.2 ng/mL (>30)
== END 2023-12-26 07:52 | disposition home or self-care (01) ==
LOC: HO.LAB 07:51
PROVIDERS: PCP Internal Medicine; Visit Provider Internal Medicine
DX: Z00.00 Encounter for general adult medical examination without abnormal findings (principal); D64.9 Anemia, unspecified; E55.9 Vitamin D deficiency, unspecified
CPT/HCPCS: 36415; 80053; 80061; 82306; 83540; 85025

== ENCOUNTER 2023-12-29 10:50 | Outpatient (AMB) | payer OTHER, SELFPAY ==
--- NOTE | 2023-12-29 11:01 | MHC.OFFVIS ---
Vital Signs 12/29/23 11:02 Height 5 ft 5 in Weight 154 lb BMI 25.6 BP 113/80 Blood Pressure Location Lt brachial Position Sitting Respiration 14 Pulse 78 Pulse Source Pulse Oximeter Pulse Oximetry (%) 100 Oxygen Delivery Method Room Air Intake Visit Reasons: Low back pain Allergies sulfamethoxazole [From BACTRIM] Allergy (Severe, Verified 12/29/23 11:03) HIVES trimethoprim [From BACTRIM] Allergy (Severe, Verified 12/29/23 11:03) HIVES Sulfa (Sulfonamide Antibiotics) Allergy (Unknown, Verified 12/29/23 11:03) hives Medication List - Last Reconciled 12/29/23 by Tiffanie Reyes LPN No Known Home Meds HPI HPI Low back pain: Details: 28-year-old female who presents today to the office for a lower back pain. She reports an aching sensation in her low back associated with a pins and needles sensation in her right flank that has been going on since June 2023. She states that her pain started after she received the spinal injection for delivery. It is unclear if the spinal injection precipitated the symptoms or if she had a gradual worsening of back pain issues during her . Pain is described as 7/10 in intensity. She states that sitting for prolonged time worsens her pain. She is able to do her daily activities, but the pain does get worse during the workday. 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 She had x-rays that were mostly unremarkable. She has not tried physical therapy or any other intervention so far. She has one child. [facility] Medical History Left knee pain Tachycardia Pure hypercholesterolemia Iron deficiency anemia due to chronic blood loss GERD (gastroesophageal reflux disease) Physical exam Surgical History History of History of adenoidectomy Family History Father Depression Mother Lupus Rheumatoid arthritis Sarcoidosis Social History Housing: Apartment Alcohol intake: never Patient Tobacco Use Status: Never used Tobacco e-Cigarette/Vaping Use: Never Used Second Hand Smoke Exposure: No service: No Current occupational status: employed Current occupational exposures/hazards: No Sexual orientation: Lesbian/Thompson/Homosexual Gender identity: Female Cognitive needs: No Hearing needs: No Vision needs: Yes (glasses) Female Reproductive History Menstrual Age of Menarche: 12 Review of Systems Const All systems reviewed & are unremarkable except as noted in HPI and below Physical Exam Vital Signs: Last Vital Signs Pulse 78 12/29/23 11:02 Resp 14 12/29/23 11:02 BP 113/80 12/29/23 11:02 Pulse Ox 100 12/29/23 11:02 Oxygen Delivery Method Room Air 12/29/23 11:02 BMI result Body Mass Index 25.6 General: Appears afebrile. Alert and oriented. Mood and affect appropriate. Follows and participates in conversation appropriately. Respiratory effort is unlabored. Able to transition from sit to stand unassisted. Ambulates with bilaterally normal heel strike and toe off. Results Reviewed Results Reviewed: No imaging is available for review. Assessment & Plan Assessment & Plan (1) Lumbar pain: Code(s): M54.50 - Low back pain, unspecified Category: Medical Plan It appears that she is suffering from deconditioning of the lower back in the setting of , which will hopefully improve with conservative measures. I discussed lifestyle modification and postural modification. I also recommended getting a standing desk for work. I emphasized stretching and strengthening activities, physical therapy, yoga exercises, and core strengthening, as well as keeping good sleep hygiene and posture with proper support. A referral was provided to physical therapy. The patient will receive a call to schedule an appointment. Follow up as needed.? Scribed for Dr. Be by Christiano Calderon, nuclear medicine medical director, on 12/29/2023. I, Dr. Be, have personally reviewed and agree with the information entered by the scribe. Orders: Orders PT Evaluation and Treatment 12/29/23 M54.50 - Low back pain, unspecified Coding Level of Care Code New Pt Level 3 (68822) Diagnoses Lumbar pain M54.50
[2023-12-29 11:02] VITALS: BP 113/80; PULSE 78; RESP 14; O2SAT 100; BMI 25.6
== END 2023-12-29 11:18 | disposition home or self-care (01) ==
PROVIDERS: PCP Internal Medicine; Visit Provider Internal Medicine
DX: M54.50 Low back pain, unspecified (principal)
CPT/HCPCS: 99203

== ENCOUNTER → 2023-12-29 10:50 | Outpatient (BNVA) | payer OTHER, SELFPAY | PROVIDERS: PCP Internal Medicine; Visit Provider Internal Medicine ==

== ENCOUNTER 2024-07-24 15:18 | Outpatient (AMB) | payer OTHER, SELFPAY ==
--- NOTE | 2024-07-24 15:27 | A.OFFPC_ITS ---
Vital Signs 07/24/24 15:29 Height 5 ft 5 in Weight 153 lb BMI 25.5 BP 120/70 Blood Pressure Location Lt brachial Position Sitting Pulse 75 Pulse Source Pulse Oximeter Temp 97.3 F Temp Source Temporal Artery Scan Pulse Oximetry (%) 98 Oxygen Delivery Method Room Air Intake Visit Reasons: abd pain Intake Note: Patient is here to follow up on Right chest pain under the breast after eating start today. Nursing Care Attendant Required: No Ultrasound Applications Specialist: Not Required per policy Accompanied by: Self / Same As Patient Allergies sulfamethoxazole [From BACTRIM] Allergy (Severe, Verified 07/24/24 15:29) HIVES trimethoprim [From BACTRIM] Allergy (Severe, Verified 07/24/24 15:29) HIVES Sulfa (Sulfonamide Antibiotics) Allergy (Unknown, Verified 07/24/24 15:29) hives Tobacco use date assessed: 07/24/24 Dental Screening Dental Screen Date: 07/24/24 Did you have a dental visit in the last 12 months?: Yes Did you have a dental problem in the last 6 months where you did not have access to dental care?: No Was dental information given to patient?: Patient has dentist HPI abd pain HPI Details 29-year-old female with past medical his tory of GERD, hypercholesterolemia, iron deficiency anemia last seen 11/2023 coming in for acute problem. Presenting with intermittent pain underneath the right breast. Onset of pain began the morning of the visit, described as aching and bothersome. Pain is amplified after eating and with certain movements, with relief noted upon rest. The patient experienced episodes of pain after consuming a protein shake and coffee for breakfast, and a peanut butter and jelly sandwich for lunch. Denies changes in eating habits, unusual foods, or abdominal imaging. Denies nausea, vomiting, fever, cough, or recent physical strain or injuries. [facility] Medical History Left knee pain Tachycardia Pure hypercholesterolemia Iron deficiency anemia due to chronic blood loss GERD (gastroesophageal reflux disease) Physical exam Surgical History History of History of adenoidectomy Family History Father Depression Mother Lupus Rheumatoid arthritis Sarcoidosis Social History Housing: Apartment Alcohol intake: never Patient Tobacco Use Status: Never used Tobacco e-Cigarette/Vaping Use: Never Used Second Hand Smoke Exposure: No service: No Current occupational status: employed Current occupational exposures/hazards: No Sexual orientation: Lesbian/Thompson/Homosexual Gender identity: Female Cognitive needs: No Hearing needs: No Vision needs: Yes (glasses) Female Reproductive History Menstrual Age of Menarche: 12 Questionnaire PHQ-9 Over the last 2 weeks, how often have you been bothered by any of the following problems? 1. Little interest or pleasure in doing things: not at all 2. Feeling down, depressed, or hopeless: not at all 3. Trouble falling or staying asleep, or sleeping too much: not at all 4. Feeling tired or having little energy: not at all 5. Poor appetite or overeating: not at all 6. Feeling bad about yourself - or that you are a failure or have let yourself or your family down: not at all 7. Trouble concentrating on things, such as reading the newspaper or watching television: not at all 8. Moving or speaking so slowly that other people could have noticed. Or the opposite - being so fidgety or restless that you have been moving around a lot more than usual: not at all 9. Thoughts that you would be better off or of hurting yourself in some way: not at all Total score: 0 Depression Screening Interpretation: Negative Depression Screening Done: Yes Source: Developed by Drs. Gerardo Mcintyre, Trinity Salguero, Orestes Pope and colleagues, with an educational oliver from [employer]. Thrive Questionnaire Date Thrive assessed: 07/24/24 I am a: Patient What is your living situation today?: I have a steady place to live Within the past 12 months, did the food you bought not last and you didn't have the money to get more?: Never true Within the past 12 months, did you worry whether your food would run out before you got money to buy more?: Never true Do you have trouble paying for medicines?: No Do you have trouble getting transportation to medical appointments?: No Do you have trouble paying your heating and electricity bill?: No Do you have trouble taking care of your child, family member or friend?: No Do you have trouble with day-to-day activities such as bathing, preparing meals, shopping, managing finances, etc.?: No Are you currently unemployed and looking for a job?: No Are you interested in more education?: No Please select the resources that you would like help with: None Currently or been in a relationship where the following occur: No concerns reported THRIVE Score: 0 AUDIT C Alcohol Use Questionnaire (AUDIT-C) 1. How often do you have a drink containing alcohol?: Monthly or less 2. How many drinks containing alcohol do you have on a typical day when you are drinking?: 1 or 2 3. How often do you have six or more drinks on one occasion?: Never Total Score: 1 VIOLETA-7 AMB Questionnaire VIOLETA-7 Date VIOLETA - 7 assessed: 07/24/24 Feeling nervous, anxious, or on edge: 0 = Not at all Not being able to stop or control worryin = Not at all Worrying too much about different things: 0 = Not at all Trouble relaxin = Not at all Being so restless that it is hard to sit still: 0 = Not at all Becoming easily annoyed or irritable: 0 = Not at all Feeling afraid as if something awful might happen: 0 = Not at all Total VIOLETA-7 score (0-4 normal; 5-9 mild; 10-14 moderate; 15-21 severe): 0 Source: Developed by Drs. Gerardo Mcintyre, Trinity Salguero, Orestes Pope and colleagues, with an educational oliver from [employer]. Review of Systems Const Denies body aches, Denies chills, Denies fever(s) and Denies poor appetite Eyes Reports no additional complaints ENT Denies dizziness Card Denies chest pain and Denies dyspnea Resp Denies cough, Denies excessive phlegm production and Denies dyspnea GI Reports as per HPI, Reports abdominal pain, Denies constipation, Denies diarrhea, Denies nausea and Denies vomiting Reports no additional complaints Musc Reports as per HPI and Denies abnormal gait Skin/Breast Reports system reviewed and no additional complaints, except as documented Neuro Denies abnormal gait and Denies dizziness Psych Reports no additional complaints Physical exam (Primary Care) Tobacco/Smoking Status: Tobacco use Status Tobacco use date assessed 12/05/23 12/05/23 09:18 Patient Tobacco Use Status Never used Tobacco 12/05/23 09:18 e-Cigarette/Vaping Use Never Used 12/05/23 09:18 Depression Screening Interpretation: Negative Thrive Assessment: Date of Thrive Assessment Date Thrive assessed 07/24/24 07/24/24 13:37 Currently or been in a relationship where the following occur: No concerns reported Const General: cooperative, healthy appearing, comfortable and no acute distress Orientation/consciousness: patient oriented x3 HENMT Head: Yes normocephalic Ears: hearing grossly normal bilaterally General nose exam: Normal external nose present Eyes General: appearance normal, both eyes and all related structures Conjunctivae: conjunctivae normal Neck Neck: Yes full ROM and Yes no lymphadenopathy Chest Other: Tenderness to palpation over right ribs under the breast. No tenderness to palpation of breast tissue Resp Effort & Inspection: normal respiratory effort Auscultation: clear to auscultation bilaterally, no crackles, no rales, no rhonchi and no wheezes Cardio Rate: regular rate Rhythm: regular rhythm GI Palpation (GI): Soft to palpation, not firm, nontender, no guarding, not rigid and No Rebound tenderness present Skin General skin exam: no rashes or lesions noted Neuro General: patient oriented x3 Gait exam (Neuro): Normal gait present Extrem General: Yes normal to inspection, Yes full ROM and No edema Psych Affect: normal affect Attitude: cooperative Insight: Good insight present (Psych) Judgement: Good judgement present (Psych) Coding Level of Care Code Est Pt Level 3 (35768) Diagnoses Rib pain on right side R07.81 Generalized postprandial abdominal pain R10.84 Assessment & Plan Assessment & Plan (1) Rib pain on right side: Code(s): R07.81 - Pleurodynia Category: Medical Plan: Given patient's location of the pain likely muscular in nature. Recommending heating pads, ibuprofen Tylenol as needed for pain. Advised patient to continue to monitor her symptoms and reach out if symptoms became more persistent or worsened. No known injury cough or trauma x-ray not indicated at this time. (2) Generalized postprandial abdominal pain: Code(s): R10.84 - Generalized abdominal pain Category: Medical Plan: Patient having generalized postprandial pain in the right upper quadrant to right rib area. Given her exam likely muscular in nature however patient is requesting abdominal ultrasound to screen for possible gallbladder disease. Ultrasound order was placed at patient request advised patient to cancel abdominal ultrasound if pain resolves. Plan In managing the reported muscular chest pain, I have determined the pain likely has a musculoskeletal component due to the nature of its onset with movement and eating. An abdominal ultrasound has been ordered to rule out gallbladder issues. Current management includes the recommendation of Tylenol or Ibuprofen for pain relief, with muscle relaxers if pain severity increases at night. The patient should apply heat therapy to the affected area as needed. Should ultrasound indicate gallbladder problems, diet adjustments will follow. Monitoring and reporting any changes in symptoms are crucial as part of the follow-up strategy. This note was constructed using voice recognition software. While every effort has been made to ensure accuracy and maintenance engineer, still areas may have been included sometimes these areas may affect the content or meeting of the given symptoms. Total time spent caring for the patient today was 20 minutes. This includes time spent before the visit reviewing the chart, time spent during the visit, and time spent after the visit and documentation. Patient was informed and verbally consented to the use of an ambient scribe for clinic note documentation during this visit. Orders: Orders US abdomen complete Today R07.81 - Pleurodynia, R10.84 - Generalized abdominal pain
[2024-07-24 15:29] VITALS: BP 120/70; PULSE 75; TEMP 36.3; O2SAT 98; BMI 25.5
--- OUTSIDE RECORDS SUMMARY | 2024-07-24 16:19 | XMS_ITS | Data Portability ---
Author Organization [place] - [facility], Allergy Address [address] [place] [id number] Care Team Providers Care Amphibian Crewmember Name Role Phone BILL COBURN Primary Care Provider [phone] Assessment No assessment recorded. Plan of Treatment Reminders Order Date Submit Date Provider Last Modified By Organization Details Last Modified Time Details Appointments None record ed. Lab None record ed. Referral None record ed. Procedures None record ed. Surgeries None record ed. Imaging None record ed. Medication Orders None record ed. Patient TargetsNo targets recorded. Patient InstructionsNo instructions recorded. Reason for Referral None Reported. Problems Name Problem SNOMED Code Status Onset Date Resolution Date Notes Provider Name and Address Organization Details Recorded Time Chronic tonsillitis 85283580 Active 2023 KARINA Gill MD [address] [place] [address], [phone] 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 Medical Equipment None Reported. Medications Name Sig Start Date Stop Date Status Note LastModified by Organization Details LastModified Time ketoconazole 2 % shampoo APPLY TO SCALP IN THE AM & ALLOW TO SIT FOR 10 MINS.LATHER & RINSE & USE REGULAR SHAMPOO ONCE WEEKLY active Not Available Not Available Not Available docusate sodium 100 mg capsule TAKE 1 CAPSULE BY MOUTH 2 TIMES A DAY NEEDED FOR CONSTIPATIO N active Not Available Not Available No t Available ibuprofen 600 mg tablet TAKE 1 TABLET BY MOUTH EVERY 6 HOURS NEEDED FOR PAIN. NOT TO EXCEED 3200 MG/DAY active Not Available Not Available Not Available simethicone 80 mg chewable tablet CHEW 1 TABLET BY MOUTH 4 TIMES A DAY NEEDED FOR GAS active Not Available Not Available No t Available oxycodone 5 mg tablet TAKE 1 TABLET BY MOUTH EVERY 6 HOURS NEEDED FOR PAIN active Not Available Not Available No t Available fluocinolone 0.01 % scalp oil and shower cap MASSAGE INTO THE SCALP ONCE WEEKLY OVERNIGHT OR AT LEAST 4 HOURS. SHAMPOO OUT IN THE MORNING. active Not Available Not Available No t Available Gavilax 17 gram/dose oral powder TAKE 17 GM BY MOUTH DAILY, DISSOLVE IN WATER BEFORE TAKING active Not Available Not Available No t Available acetaminophe n 325 mg capsule TAKE 2 CAPSULE (650 MG) TAKEN BY MOUTH EVERY 4 HOURS NOT TO EXCEED 4000 MG/DAY NEEDED FOR PAIN active Not Available Not Available No t Available M- Plus 27 mg iron-1 mg tablet TAKE 1 TABLET BY MOUTH EVERY DAY active Not Available Not Available No t Available Vitals Date Recorded Body height Body mass index (BMI) Body weight Provider Name and Address Organization Details Last Updated DateTime 12/19/2023 157.48 cm 27.4 kg/m2 72468.86 g Nichole Luque [place] - [facility] 12/19/2023 09:43:12 Social History None recorded. Functional Status None recorded. Mental Status None recorded. Family History Nothing Reported. Medical History No medical history recorded. Gynecological HistoryNo gynecological history recorded. Obstetrics History GPAL:G 0 P 0 0 0 0 Past Encounters Encounter ID Performer Location Encounter Start Date Encounter Closed Date Diagnosis/Indication Diagnosis SNOMED-CT Code Diagnosis ICD10 Code Diagnosis Note [id number] KARINA HUI MD [facility] [address] [address] 12/19/2023 09:23:13 12/19/2023 10:05:04 Chronic tonsillitis 71194810 J35.01 She has cryptic tonsils without exudate or erythema. I discussed salt water gargles, hydration, and limiting caffeine. I also discussed tonsillect lobo as a last resort and we agreed to defer for now in favor of trying the above. Amygdalolith [id number] J35 .8 see above Health Concerns Section Related Observation LastModified by Organization Detai ls LastModified Time None Recorded Concern Status LastModified by Organization Details LastModified Time None Recorded Advance Directives Directive None Recorded Payers Encounter Date Sequence Insurance Name Policy Number Policy Gonzalez Covered Member ID Gonzalez Member ID Guarantor Name 12/19/2023 1 [employer] [place] ([facility]) [id number] Angelica Green [id number] Angelica Green Notes Date Note Type Note Provider Name and Address Organization Details Recorded Time 12/19/2023 text/html She has a history of chronic sore throat. She has tonsil stones and she notes soreness in her tonsil area when she has stones. They occur on a weekly basis. She does not smoke. No hx of strep. She does not snore. NO hx of bleeding problems. Has removed stones herself and tried mouth rinses but the stones still occur. She has tried to drink more water to see if it would help. KARINA HUI MD [address] [place] [address], [place], [phone], [facility] - [facility] 12/19/2023 10:04:13 OBGyn Episode No OBEpisode recorded.
--- OUTSIDE RECORDS SUMMARY | 2024-07-24 16:19 | XMS_ITS | Patient Health Record ---
Author Organization [facility] Address [address] [place] [address] Care Team Providers Care Marketing Director Assisted Living Name Role Phone ENEDINA CESAR, BENY Primary Care Provider Monalisa Salcido Unavailable [phone] Allergies Allergen (clinical drug ingredient) Drug/Non Drug Allergy documented on EMR Reaction Allergy Type Onset Date Status sulfamethoxazole / trimethoprim Bactrim (uncoded) Hives Allergy Active Reason For Referral No Information Medications Medication SIG (Take, Route, Fr equency, Duration) Notes Start Date End Date Status Lysteda 650 MG 2 tablets Orally Thr ee times a day for 5 day(s) 09/28/2016 Active Immunizations Vaccine Route Administration Date Status Comme nts GARDASIL 9 IM Intramuscular 09/28/2016 Administered Dose 1 given elsewhere Social History Tobacco Use: Social History Observation Description Date Details (start date - stop date) Never Smoker NA - NA Tobacco Use/Smoking Question Answer Notes Are you a nonsmoker Problems Problem Type SNOMED Code ICD Code Onset Dates Problem Status W/U Status Risk Notes Problem Excessive and frequent menstruation (972507694) Excessive and frequent menstruation with regular cycle (N92.0) Active confirmed Plan Of Treatment Pending Test Test Name Order Date THIN PREP,HPV IF ASCUS, CT/GC (21-29YR) 09/28/2016 Insurance Providers Payer Name Payer Address Payer Phone Subscriber Number Group Number Insured Name Patient Relationship to Insured Coverage Start Date Coverage End Date [employer] [place] [address] [place] [address] [id number] [employer] Other [employer] [address] [place] [address] [phone] [id number] CROWE Child - Insured has Financial Responsibility
== END 2024-07-24 15:45 | disposition home or self-care (01) ==
LOC: HO.HMCH 15:19
PROVIDERS: PCP Internal Medicine
DX: R07.81 Pleurodynia (principal); R10.84 Generalized abdominal pain

== ENCOUNTER → 2024-07-24 15:18 | Outpatient (BNVA) | payer OTHER, SELFPAY | PROVIDERS: PCP Internal Medicine | DX: Z13.89 Encounter for screening for other disorder (principal) ==

== ENCOUNTER 2024-08-16 14:19 | Outpatient (AMB) | payer OTHER, SELFPAY ==
[2024-08-16 14:19] VITALS: BP 128/63; PULSE 78; RESP 14; TEMP 36.6; O2SAT 99; BMI 25.3
--- NOTE | 2024-08-16 14:19 | A.OFFPC_ITS ---
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: No Accompanied by: Self / Same As Patient Allergies sulfamethoxazole [From BACTRIM] Allergy (Severe, Verified 08/16/24 14:42) HIVES trimethoprim [From BACTRIM] Allergy (Severe, Verified 08/16/24 14:42) HIVES Sulfa (Sulfonamide Antibiotics) Allergy (Unknown, Verified 08/16/24 14:42) hives Medication List - Last Reconciled 08/16/24 by Saskia Cuellar PA-C No Known Home Meds Tobacco use date assessed: 08/16/24 Dental Screening Dental Screen Date: 08/16/24 Did you have a dental visit in the last 12 months?: Yes Did you have a dental problem in the last 6 months where you did not have access to dental care?: No Was dental information given to patient?: Patient has dentist HPI Establish Care HPI Details The patient is a 29-year-old female presenting patient new primary care provider and to discuss lower back pain. Patient reports lower back pain primarily located in the lumbar/bilateral sacroiliac joint area, which has persisted since childbirth in January 2023. She describes no radiating pain to the legs, and the discomfort is confining to the lower back region. Previously, Dr. Rosenberg ordered an X-ray which showed no abnormalities, and a pain management referral resulted in non-invasive management suggestions due to her age. Despite these efforts, the pain remains a limitation in her daily activities. Also makes it difficult to care for her daughter. She denies any recent falls, urinary bowel incontinence or retention, saddle anesthesias, radiation of the pain, rashes or any other symptoms complaints or concerns related to this at this time. 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) - Does not take medications currently [facility] Medical History Hyperlipidemia LDL goal <100 Establishing care with new doctor, encounter for Chronic SI joint pain Low back pain Left knee pain Tachycardia Pure hypercholesterolemia Iron deficiency anemia due to chronic blood loss GERD (gastroesophageal reflux disease) Physical exam Surgical History History of History of adenoidectomy Family History Father Depression Mother Lupus Rheumatoid arthritis Sarcoidosis Primary biliary cirrhosis Social History Housing: Apartment Alcohol intake: current Alcohol intake frequency: does not drink Patient Tobacco Use Status: Never used Tobacco e-Cigarette/Vaping Use: Never Used Second Hand Smoke Exposure: No service: No Current occupational status: employed Sexual orientation: Lesbian/Thompson/Homosexual Gender identity: Female Cognitive needs: No Hearing needs: No Vision needs: Yes (glasses) Female Reproductive History Menstrual Age of Menarche: 12 Questionnaire PHQ-9 Over the last 2 weeks, how often have you been bothered by any of the following problems? 1. Little interest or pleasure in doing things: not at all 2. Feeling down, depressed, or hopeless: not at all 3. Trouble falling or staying asleep, or sleeping too much: not at all 4. Feeling tired or having little energy: not at all 5. Poor appetite or overeating: not at all 6. Feeling bad about yourself - or that you are a failure or have let yourself or your family down: not at all 7. Trouble concentrating on things, such as reading the newspaper or watching television: not at all 8. Moving or speaking so slowly that other people could have noticed. Or the opposite - being so fidgety or restless that you have been moving around a lot more than usual: not at all 9. Thoughts that you would be better off or of hurting yourself in some way: not at all Total score: 0 Depression Screening Interpretation: Negative Depression Screening Done: Yes 69422 - PHQ-9 Billing: Yes Source: Developed by Drs. Gerardo Mcintyre, Trinity Salguero, Orestes Pope and colleagues, with an educational oliver from [employer]. Thrive Questionnaire Date Thrive assessed: 07/24/24 I am a: Patient What is your living situation today?: I have a steady place to live Within the past 12 months, did the food you bought not last and you didn't have the money to get more?: Never true Within the past 12 months, did you worry whether your food would run out before you got money to buy more?: Never true Do you have trouble paying for medicines?: No Do you have trouble getting transportation to medical appointments?: No Do you have trouble paying your heating and electricity bill?: No Do you have trouble taking care of your child, family member or friend?: No Do you have trouble with day-to-day activities such as bathing, preparing meals, shopping, managing finances, etc.?: No Are you currently unemployed and looking for a job?: No Are you interested in more education?: No Please select the resources that you would like help with: None Currently or been in a relationship where the following occur: No concerns reported THRIVE Score: 0 AUDIT C Alcohol Use Questionnaire (AUDIT-C) 1. How often do you have a drink containing alcohol?: Never 3. How often do you have six or more drinks on one occasion?: Never Total Score: 0 Score Reviewed/Action Taken: No VIOLETA-7 AMB Questionnaire VIOLETA-7 Date VIOLETA - 7 assessed: 07/24/24 Feeling nervous, anxious, or on edge: 0 = Not at all Not being able to stop or control worryin = Not at all Worrying too much about different things: 0 = Not at all Trouble relaxin = Not at all Being so restless that it is hard to sit still: 0 = Not at all Becoming easily annoyed or irritable: 0 = Not at all Feeling afraid as if something awful might happen: 0 = Not at all Total VIOLETA-7 score (0-4 normal; 5-9 mild; 10-14 moderate; 15-21 severe): 0 Source: Developed by Drs. Gerardo Mcintyre, Trinity Salguero, Orestes Pope and colleagues, with an educational oliver from [employer]. VIOLETA-7 Assessment Billing VIOLETA-7 Assessment Tool: VIOLETA-7 Assessment 13502 Review of Systems Const Details: - Musculoskeletal: Reports lower back pain, specifically in the sacroiliac joint area, with no radiation to the legs - Genitourinary: Denies urinary retention or incontinence Physical exam (Primary Care) Vital Signs: Last Vital Signs Temp 97.8 F 08/16/24 14:19 Pulse 78 08/16/24 14:19 Resp 14 08/16/24 14:19 BP 128/63 08/16/24 14:19 Pulse Ox 99 08/16/24 14:19 Oxygen Delivery Method Room Air 08/16/24 14:19 Care Plan Goal for BP management: <140/90 at Goal BMI result Body Mass Index 25.3 BMI Assessment/Plan discussion: High BMI High, discussed plan: lifestyle, weight reduction, dietary, physical activity and alcohol moderation Tobacco/Smoking Status: Tobacco use Status Tobacco use date assessed 08/16/24 08/16/24 14:22 Patient Tobacco Use Status Never used Tobacco 08/16/24 14:28 e-Cigarette/Vaping Use Never Used 08/16/24 14:28 PHQ-9: PHQ-9 Score PHQ-9: Total score 0 08/16/24 14:29 Depression Screening Interpretation: Negative Thrive Assessment: Date of Thrive Assessment Date Thrive assessed 07/24/24 08/16/24 14:19 Currently or been in a relationship where the following occur: No concerns reported Const Other: Appearance: Alert. Oriented X3. No acute distress. Head: Normal external exam. Normocephalic. Atraumatic. Eyes: Pupils are equal, round, and reactive to light. Extraocular movements intact. Conjunctiva and sclera normal. Eyelids normal. Throat: Pharynx normal. Uvula midline. Moist mucous membranes. Neck: Normal inspection. Neck supple. Full range of motion. Cardiovascular: Normal heart rate and rhythm. Heart sound normal. No murmurs noted. Pulses normal throughout. Respiratory: No respiratory distress. Painless inspiration. Breath sounds no rmal. No wheezes/rales/rhonchi noted. Chest nontender. No accessory muscle usage noted or decreased air movement noted. Abdomen: Soft and nontender. Back: Mild tenderness to bilateral lumbar/sacral iliac joints. There is no step-offs or deformities noted. No rashes/lesions/induration/fluctuance or signs of infection noted. No costovertebral angle tenderness. Full range of motion noted. Skin: Skin warm and dry. Normal skin color. Normal skin turgor. No rashes/lesions/lacerations noted. Extremities: No lower extremity edema. Extremities exhibit normal range of motion. Extremities nontender. Neuro: Oriented X 3. No motor deficit. No sensory deficit. Reflexes normal. Results Reviewed Results Reviewed: - Labs: Previously known elevated LDL cholesterol level at 115 mg/dL - Diagnostics: Previous normal X-ray of the lower back Coding Level of Care Code Est Pt Level 4 (75273) Complex EM visit Add On G2211 Diagnoses Establishing care with new doctor, encounter for Z76.89 Low back pain M54.50 Chronic SI joint pain M53.3; G89.29 Hyperlipidemia LDL goal <100 E78.5 Additional Codes PHQ-9 - 70310 - PHQ-9 Billing: Yes ([id number]) VIOLETA-7 Assessment Billing - VIOLETA-7 Assessment Tool: VIOLETA-7 Assessment 23989 ([id number]) Assessment & Plan Assessment & Plan (1) Establishing care with new doctor, encounter for: Code(s): Z76.89 - Persons encountering health services in other specified circumstances Category: Medical (2) Low back pain: Code(s): M54.50 - Low back pain, unspecified Category: Medical Plan: The patient's persisting lower back pain likely involving SI joint dysfunction is being explored further with an MRI while avoiding invasive interventions. The patient may use meloxicam or a muscle relaxant as needed. Condition is chronic and stable will continue to monitor and reassess. (3) Chronic SI joint pain: Code(s): M53.3 - Sacrococcygeal disorders, not elsewhere classified; G89.29 - Other chronic pain Category: Medical Plan: The patient's persisting lower back pain likely involving SI joint dysfunction is being explored further with an MRI while avoiding invasive interventions. The patient may use meloxicam or a muscle relaxant as needed. Condition is chronic and stable will continue to monitor and reassess. (4) Hyperlipidemia LDL goal <100: Code(s): E78.5 - Hyperlipidemia, unspecified Category: Medical Plan: Patient's LDL is 115 on 12/26/2023. Goal is less than 100. Patient is ASCVD risk score is 0. No indication for statins at this time. Patient will improve her diet and exercise regimen. Condition is chronic and stable continue to monitor. Plan Plan Patient was informed and verbally consented to the use of an ambient scribe for clinic note documentation during this visit. 1. Low Back Pain, Likely Involving Sacroiliac Si Joint Dysfunction The patient's persisting lower back pain likely involving SI joint dysfunction is being explored further with an MRI while avoiding invasive interventions. The patient may use meloxicam or a muscle relaxant as needed. 2. Elevated Ldl Cholesterol While current elevated cholesterol levels do not necessitate drug therapy, we will monitor and encourage lifestyle modifications to manage LDL levels. 3. Family History Of Primary Biliary Cholangitis Pbc Regular monitoring of liver function tests is planned based on family history of PBC. An abdominal ultrasound is not required at this time. During this visit, the patient and I addressed her chronic lower back pain, likely involving SI joint dysfunction. The possibility of structural causes will be investigated with an MRI pending insurance approval. We reviewed the limited benefit and risks of initiating invasive therapies at this juncture, and I prescribed meloxicam and a muscle relaxant for potential acute episodes, cautioning against regular use. I informed her about the mild increase in LDL cholesterol and the importance of regular lifestyle modifications over medic ation at this point. Her family history of PBC was acknowledged, and regular follow-up with liver function tests was discussed, with no immediate need for additional imaging unless symptomatic or enzyme derangements are noted. Follow- up planning, including testing results review and any symptom changes was arranged, and a decision between a six-month or annual review was deferred to the patient's preference. Orders: Orders MR lumbar spine wo con Today G89.29 - Other chronic pain, M53.3 - Sacrococcygeal disorders, not elsewhere classified, M54.50 - Low back pain, unspecified C Reactive Protein Today Z00.00 - Encounter for general adult medical examination without abnormal findings Complete Blood Count Auto Diff Today Z00.00 - Encounter for general adult medical examination without abnormal findings Comprehensive [place]. Panel Fast Today Z00.00 - Encounter for general adult medical examination without abnormal findings Magnesium Today Z00.00 - Encounter for general adult medical examination without abnormal findings TSH reflex Free T4 Today Z00.00 - Encounter for general adult medical examination without abnormal findings Lipid Panel Today Z00.00 - Encounter for general adult medical examination without abnormal findings Liver Panel Today Z00.00 - Encounter for general adult medical examination without abnormal findings Vitamin B12 and Folate Today Z00.00 - Encounter for general adult medical examination without abnormal findings Vitamin D 25-OH Total Today Z00.00 - Encounter for general adult medical examination without abnormal findings Hemoglobin A1c Today Z00.00 - Encounter for general adult medical examination without abnormal findings Patient Instructions: - Take meloxicam and muscle relaxant as needed for significant lower back pain episodes; don't use regularly. - Schedule an MRI for further evaluation of back pain. - Follow a healthy diet and lifestyle to manage cholesterol levels. - Return for routine monitoring of liver function considering family history of liver disease. - Arrange follow-up for six months or one year per personal convenience; return earlier if symptoms worsen.
--- OUTSIDE RECORDS SUMMARY | 2024-08-16 14:22 | XMS_ITS | Patient Health Record ---
Author Organization [employer] [facility] Address [address] [place] [address] Care Team Providers Care Air Cargo Ground Operations Supervisor Name Role Phone ENEDINA CESAR, BENY Primary Care Provider Monalisa Salcido Unavailable [phone] Allergies Allergen (clinical drug ingredient) Drug/Non Drug [...] Risk Notes Problem Excessive and frequent menstruation ([id number]) Excessive and frequent menstruation with regular cycle (N92.0) Active confirmed Plan Of Treatment Pending Test Test Name Order Date THIN PREP,HPV IF ASCUS, CT/GC (21-29YR) 09/28/2016 Insurance Providers Payer Name Payer Address Payer Phone Subscriber Number Group Number Insured Name Patient Relationship to Insured Coverage Start Date Coverage End Date [employer] [place] [address] [place] [address] [id number] [employer] Other [employer] [address] [place] [address] [id number] CROWE Child - Insured has Financial Responsibility
== END 2024-08-16 14:47 | disposition home or self-care (01) ==
LOC: HO.HMCSH 14:19
PROVIDERS: PCP Physician Assistant Medical; Visit Provider Physician Assistant Medical
DX: Z76.89 Persons encountering health services in other specified circumstances (principal); M54.50 Low back pain, unspecified; M53.3 Sacrococcygeal disorders, not elsewhere classified; G89.29 Other chronic pain; E78.5 Hyperlipidemia, unspecified

== ENCOUNTER → 2024-08-16 14:19 | Outpatient (BNVA) | payer OTHER, SELFPAY | PROVIDERS: PCP Physician Assistant Medical; Visit Provider Physician Assistant Medical | DX: Z76.89 Persons encountering health services in other specified circumstances (principal); M54.50 Low back pain, unspecified; M53.3 Sacrococcygeal disorders, not elsewhere classified; G89.29 Other chronic pain; E78.5 Hyperlipidemia, unspecified; Z13.30 Encounter for screening examination for mental health and behavioral disorders, unspecified | CPT/HCPCS: 96127 ==

== ENCOUNTER → 2024-09-02 17:07 | Outpatient (BNV) | payer OTHER, SELFPAY | PROVIDERS: PCP Physician Assistant Medical; Visit Provider Radiology Diagnostic Radiology | DX: M54.50 Low back pain, unspecified (principal); M53.3 Sacrococcygeal disorders, not elsewhere classified | CPT/HCPCS: 72148; 72195 ==

== ENCOUNTER 2024-09-02 17:08 | Outpatient (REF) | payer OTHER, SELFPAY ==
--- NOTE | ~2024-09-02 | MR_ITS ---
CLINICAL HISTORY: M53.3 - Sacrococcygeal disorders, not elsewhere classified MR of the pelvis without contrast, sacrum/coccyx Comparison: None Findings: Normal marrow signal. Normal morphology of the sacrum. There is anterior angulation of the coccyx; sharp anterior angulation of the coccyx, type III. The inter coccygeal angle measures 85 degrees. No coccygeal spurring. No bursa along the dorsal surface of the coccyx. No fluid collection within the sacrococcygeal synchondrosis. No large draining vein on the ventral coccyx. No inflammation or soft tissue abnormality around the coccyx. Preserved sacroiliac joints. Normal size anteverted uterus measuring 6.5 x 5.0 x 5.5 cm. Normal endometrial thickness of 1.4 cm. Thickening of the junctional zone, measuring up to 1.0 cm which can be seen in the setting adenomyosis. Dominant follicle right ovary measuring up to 2.3 cm. The ovaries are otherwise unremarkable. Underdistended bladder. Impression: Anterior angulation of the coccyx may be a normal variant, however can be seen in the setting of coccydynia. No other findings to explain the patient's presentation with coccydynia. This document has been electronically signed by: Aurelia Florentino MD on 09/03/2024 16:05:41
--- NOTE | ~2024-09-02 | MR_ITS ---
CLINICAL HISTORY: M54.50 - Low back pain, unspecified --- Additional Notes or Special Instructions: p lease include si joints b l MR of the lumbar spine without contrast Comparison: None Findings: Normal alignment. Normal marrow signal. No cord expansion or abnormal signal intensity. The conus medullaris terminates at L1, which is normal. The cauda equina is unremarkable. L1/L2: No disc herniation. No facet joint or ligamentum flavum hypertrophy. No central canal stenosis. No lateral recess stenosis. No foraminal stenosis. L2/L3: No disc herniation. No facet joint or ligamentum flavum hypertrophy. No central canal stenosis. No lateral recess stenosis. No foraminal stenosis. L3/L4: 2 mm broad-based disc bulge. Mild facet joint and ligamentum flavum hypertrophy. Mild central canal stenosis. No lateral recess stenosis. No foraminal stenosis. L4/L5: 2-3 mm broad-based disc bulge. Mild facet joint and ligamentum flavum hypertrophy. Mild central canal stenosis. No lateral recess stenosis. No foraminal stenosis. L5/S1: No disc herniation. Mild facet joint and ligamentum flavum hypertrophy. No central canal stenosis. No lateral recess stenosis. No foraminal stenosis. Follicles in the right ovary measure up to 2.1 cm. Impression: No acute pathology. Mild lower lumbar degenerative change. This document has been electronically signed by: Aurelia Florentino MD on 09/03/2024 15:42:35
--- OUTSIDE RECORDS SUMMARY | 2024-09-02 17:57 | XMS_ITS | Patient Health Record ---
Author Organization [employer] [facility] Address [address] [place] [address] Care Team Providers Care Powder Truck Driver Name Role Phone ENEDINA CESAR, BENY Primary Care Provider Monalisa Salcido Unavailable [phone] Allergies Allergen (clinical drug ingredient) Drug/Non Drug [...] Risk Notes Problem Excessive and frequent menstruation ([id number]) Excessive and frequent menstruation with regular cycle (N92.0) Active confirmed Plan Of Treatment Pending Test Test Name Order Date THIN PREP,HPV IF ASCUS, CT/GC (21-29YR) 09/28/2016 Insurance Providers Payer Name Payer Address Payer Phone Subscriber Number Group Number Insured Name Patient Relationship to Insured Coverage Start Date Coverage End Date [employer] [place] [address] [place] [address] [id number] [employer] Other [employer] [address] [place] [address] [phone] [id number] CROWE Child - Insured has Financial Responsibility
== END 2024-09-02 17:09 | disposition home or self-care (01) ==
LOC: HO.MRI 17:08
PROVIDERS: PCP Physician Assistant Medical; Visit Provider Physician Assistant Medical
DX: M54.50 Low back pain, unspecified (principal); M53.3 Sacrococcygeal disorders, not elsewhere classified; G89.29 Other chronic pain
CPT/HCPCS: 72148; 72195

== ENCOUNTER 2024-09-04 08:07 | Outpatient (REF) | payer OTHER, SELFPAY ==
--- OUTSIDE RECORDS SUMMARY | 2024-09-04 08:11 | XMS_ITS | Patient Health Record ---
Author Organization [employer] [facility] Address [address] [place] [address] Care Team Providers Care Wound/Ostomy Clinical Nurse Specialist Name Role Phone ENEDINA CESAR, BENY Primary Care Provider Monalisa Salcido Unavailable [phone] Allergies Allergen (clinical drug ingredient) Drug/Non Drug [...] Risk Notes Problem Excessive and frequent menstruation with regular cycle (N92.0) Active confirmed Plan Of Treatment Pending Test Test Name Order Date THIN PREP,HPV IF ASCUS, CT/GC (21-29YR) 09/28/2016 Insurance Providers Payer Name Payer Address Payer Phone Subscriber Number Group Number Insured Name Patient Relationship to Insured Coverage Start Date Coverage End Date [employer] [place] [address] [place] [address] [phone] [id number] [employer] Other [employer] [address] [place] [address] [id number] ESCRIBAN ORIAZ Natural Child - Insured has Financial Responsibility
[2024-09-04 08:24] LABS: MANUAL DIFF FLAG NO
[2024-09-04 09:25] LABS: Basophils Percent Auto 0.5 % (0-2); Eosinophils Absolute Auto 0.2 X10*3/uL (0.0-0.4); Eosinophils Percent Auto 3.4 % (0-4); Hematocrit 38.6 % (37.0-47.0); Hemoglobin 12.9 g/dl (12.0-16.0); Imm Gran Abs Auto 0.02 X10*3/uL (0.00-0.03); Imm Gran Pct Auto 0.3 % (0.0-0.4); Lymphocytes Absolute Auto 1.9 X10*3/uL (1.2-4.9); Mean Corpuscular HGB Conc 33.4 g/dl (31.0-35.0); Mean Corpuscular Hemoglobin 30.6 pg (27.0-33.0); Mean Corpuscular Volume 91.5 fL (80.0-98.0); Mean Platelet Volume 9.6 fL (9.4-12.3); Monocytes Absolute Auto 0.4 X10*3/uL (0.1-1.2); Monocytes Percent Auto 5.7 % (2-11); Neutrophils Absolute Auto 3.9 x10*3/uL (2.0-8.3); Neutrophils Percent Auto 61.1 % (45-73); Platelet Count 344 X10*3/uL (160-400); Red Blood Count 4.22 X10*6/uL (4.20-5.50); Red Cell Distribution Width 12.4 % (11.0-16.0); White Blood Count 6.4 X10*3/uL (4.8-10.8)
[2024-09-04 09:43] LABS: Estimated Average Glucose 91 mg/dL; Hemoglobin A1c % 4.8 % (<6.0)
[2024-09-04 09:50] LABS: Alanine Aminotransferase 12 U/L (0-31); Albumin Level 4.6 g/dL (3.5-5.0); Alkaline Phosphatase 57 U/L (39-117); Anion Gap 10 (12-20); Aspartate Amino Transferase 15 U/L (5-31); Bilirubin Direct 0.2 mg/dL (0.0-0.5); Bilirubin Total 0.4 mg/dL (0.0-1.0); Blood Urea Nitrogen 13 mg/dL (9-16); C Reactive Protein < 0.04 mg/dL (< or = 0.50); Calcium 9.1 mg/dL (8.4-10.2); Carbon Dioxide 28 mmol/L (22-29); Chloride 106 mmol/L (96-108); Cholesterol 178 mg/dL (<200); Estimated Glomerular Filt Rate > 60; Glucose Fasting 82 mg/dL (60-99); HDL Cholesterol 49 mg/dL (>40); LDL Cholesterol Calculated 120 mg/dL (<100); Potassium 4.1 mmol/L (3.3-5.1); Sodium 140 mmol/L (135-145); Total Protein 7.2 g/dL (6.5-8.0); Triglycerides 45 mg/dL (<150)
[2024-09-04 10:05] LABS: TSH reflex Free T4 0.89 uIU/mL (0.32-4.0); Vitamin D 25-OH Total 23.9 ng/mL (>30)
[2024-09-04 10:16] LABS: Folate 5.1 ng/mL (> or = 4.0); Vitamin B12 717 pg/mL (200-900)
== END 2024-09-04 08:08 | disposition home or self-care (01) ==
LOC: HO.LAB 08:07
PROVIDERS: PCP Physician Assistant Medical; Visit Provider Physician Assistant Medical
DX: Z00.00 Encounter for general adult medical examination without abnormal findings (principal)
CPT/HCPCS: 36415; 80053; 80061; 80076; 82248; 82306; 82607; 82746; 83036; 83735; 84443; 85025; 86140

== ENCOUNTER 2024-10-10 08:31 | Outpatient (AMB) | payer OTHER, SELFPAY ==
--- NOTE | 2024-10-10 08:34 | A.OFFVIS_ITS ---
Intake Visit Reasons: New Patient- Back Pain Intake Note: Angelica is a 29 year old female who presents today for a new patient visit for Back pain. Patient was seen by DR. Be in Pain Management on 12/29/23 for lower back pain, in the appointment it was discussed lifestyle modification and postural modification, standing desk for work, stretching and strengthening activities. Patient was then referred to physical therapy, she has not yet attended but plans to do so. Patient was also seen in her primary care office on 12/05/23 for lower back pain, in that visit they discussed lumbar pain after her epidural injection for delivering 02/16. X-ray was done 12/06/23 and MRI 09/03/24 of Lumbar spine and Pelvis. Patient states she feels an aching pain almost constantly. She feels minimal relief with stretching. She is not currently taking any medications over the counter. Allergies sulfamethoxazole (From BACTRIM) Allergy (Severe, Verified 08/16/24 14:42) HIVES trimethoprim (From BACTRIM) Allergy (Severe, Verified 08/16/24 14:42) HIVES Sulfa (Sulfonamide Antibiotics) Allergy (Unknown, Verified 08/16/24 14:42) hives Medication List - Last Reconciled 10/10/24 by Chantel Garza RN cholecalciferol (vitamin D3) 50 mcg PO DAILY HPI Comments Details: Delivered 02/17/23, first , CS section, uncomplicated. She did have pain during , towards the end. It's continued, maybe worse lately. She points towards the middle. Worse with standing and extension. Though extension can relieve it as well. Rarely numbness on right big toe. No weakness. No bladder/bowel changes. Denies dyspareunia. No PT yet. [facility] Medical History (Updated 10/10/24 @ 08:59 by Tamanna Still MD) Sacroiliac joint dysfunction of both sides Vitamin D deficiency Bulging lumbar disc Coccydynia Hyperlipidemia LDL goal <100 Establishing care with new doctor, encounter for Chronic SI joint pain Low back pain Left knee pain Tachycardia Pure hypercholesterolemia Iron deficiency anemia due to chronic blood loss GERD (gastroesophageal reflux disease) Physical exam Surgical History History of History of adenoidectomy Family History Father Depression Mother Lupus Rheumatoid arthritis Sarcoidosis Primary biliary cirrhosis Social History Housing: Apartment Alcohol intake: current Alcohol intake frequency: does not drink Patient Tobacco Use Status: Never used Tobacco e-Cigarette/Vaping Use: Never Used Second Hand Smoke Exposure: No service: No Current occupational status: employed Sexual orientation: Lesbian/Thompson/Homosexual Gender identity: Female Cognitive needs: No Hearing needs: No Vision needs: Yes (glasses) Female Reproductive History Menstrual Age of Menarche: 12 Review of Systems Const All systems reviewed & are unremarkable except as noted in HPI and below Physical Exam Constitutional: Patient appears to be in no acute distress, well nourished and well developed. Patient was appropriately conversant and oriented. Good historian. MSK: No specific abnormalities found on inspection of the spine and all extremities. No pain with palpation over the lumbar area. No tenderness over coccyx. Tender on bilateral SI joints. Lumbar ROM was full. Bilateral hip, knee and ankle ROM WNL. No ligamentous laxity or crepitance. No increased effusion. Straight-leg raising test negative. FABERE test positive to back pain bilateral. Gillet test show stiffness on SI joints. Strength is 5/5 in all muscle groups tested. No increased tone noted. Neurological: Neurologic examination of the upper and lower extremities was nonfocal with intact sensation, muscle stretch reflexes and without focal motor deficits . Babinski was down going bilaterally. Clonus was negative. Gait is non-antalgic without loss of balance. Results Reviewed Results Reviewed: I independently reviewed the results of the following: Lumbar MRI showed minimal disc bulges with out any nerve impingement or spinal stenosis. Ordering Physician: Saskia Cuellar PA-C Date of Service: 09/02/24 Procedure(s): MR pelvis wo con Accession Number(s): [id number] cc: Saskia Cuellar PA-C~ CLINICAL HISTORY: M53.3 - Sacrococcygeal disorders, not elsewhere classified MR of the pelvis without contrast, sacrum/coccyx Comparison: None Findings: Normal marrow signal. Normal morphology of the sacrum. There is anterior angulation of the coccyx; sharp anterior angulation of the coccyx, type III. The inter coccygeal angle measures 85 degrees. No coccygeal spurring. No bursa along the dorsal surface of the coccyx. No fluid collection within the sacrococcygeal synchondrosis. No large draining vein on the ventral coccyx. No inflammation or soft tissue abnormality around the coccyx. Preserved sacroiliac joints. Normal size anteverted uterus measuring 6.5 x 5.0 x 5.5 cm. Normal endometrial thickness of 1.4 cm. Thickening of the junctional zone, measuring up to 1.0 cm which can be seen in the setting adenomyosis. Dominant follicle right ovary measuring up to 2.3 cm. The ovaries are otherwise unremarkable. Underdistended bladder. Impression: Anterior angulation of the coccyx may be a normal variant, however can be seen in the setting of coccydynia. No other findings to explain the patient's presentation with coccydynia. This document has been electronically signed by: Aurelia Florentino MD on 09/03/2024 16:05:41 Ordering Physician: Saskia Cuellar PA-C Date of Service: 09/02/24 Procedure(s): MR lumbar spine wo con Accession Number(s): [id number] cc: Saskia Cuellar PA-C~ CLINICAL HISTORY: M54.50 - Low back pain, unspecified --- Additional Notes or Special Instructions: please include si joints b l MR of the lumbar spine without contrast Comparison: None Findings: Normal alignment. Normal marrow signal. No cord expansion or abnormal signal intensity. The conus medullaris terminates at L1, which is normal. The cauda equina is unremarkable. L1/L2: No disc herniation. No facet joint or ligamentum flavum hypertrophy. No central canal stenosis. No lateral recess stenosis. No foraminal stenosis. L2/L3: No disc herniation. No facet joint or ligamentum flavum hypertrophy. No central canal stenosis. No lateral recess stenosis. No foraminal stenosis. L3/L4: 2 mm broad-based disc bulge. Mild facet joint and ligamentum flavum hypertrophy. Mild central canal stenosis. No lateral recess stenosis. No foraminal stenosis. L4/L5: 2-3 mm broad-based disc bulge. Mild facet joint and ligamentum flavum hypertrophy. Mild central canal stenosis. No lateral recess stenosis. No foraminal stenosis. L5/S1: No disc herniation. Mild facet joint and ligamentum flavum hypertrophy. No central canal stenosis. No lateral recess stenosis. No foraminal stenosis. Follicles in the right ovary measure up to 2.1 cm. Impression: No acute pathology. Mild lower lumbar degenerative change. This document has been electronically signed by: Aurelia Florentino MD on 09/03/2024 15:42:35 Ordering Physician: Eileen Umanzor MD Date of Service: 12/06/23 Procedure(s): XR lumbar spine 2-3V Accession Number(s): [id number] cc: Eileen Umanzor MD~ EXAMINATION: XR LUMBAR SPINE CLINICAL INFORMATION: Low back pain, unspecified. COMPARISON: None available. TECHNIQUE: AP and lateral views of the lumbar spine and lateral view of the lumbosacral junction. FINDINGS: Vertebral body heights are normal. No fracture or spondylolisthesis. Intervertebral disc heights are maintained without significant degenerative disc disease. Bone mineralization is normal. Soft tissues are unremarkable. Imaged portions of the sacroiliac joints are normal. XR/XR lumbar spine 2-3V IMPRESSION: Normal lumbar spine radiographs. Electronically signed by: Get Trejo MD 12/19/2023 11:46 PM EDT RP I reviewed records from the following: Pain management saw her back in 12/2023 PCP notes Assessment & Plan Assessment & Plan (1) Sacroiliac joint dysfunction of both sides: Code(s): M53.3 - Sacrococcygeal disorders, not elsewhere classified Category: Medical Plan Presenting with bilateral SI joint dysfunction, right worse than left, that started since 2022, but continued until now. She has not done any exercises or PT for this. We think it is important to start with physical therapy. PT order written, to do pelvic and SI stabilization and realignment. We will continue to monitor patient if she does or may develop pelvic floor dysfunction. Discussed briefly that PT for pelvic floor is available if needed. Assessment and plan discussed with patient, and patient was agreeable. All questions were answered thoroughly. Follow up 2 months. Tamanna Still MD, STEVEN Board Certified, [place] [employer] and Rehabilitation (ABPMR) Board Certified, [place] [employer] Electrodiagnostic Medicine (ABEM) Orders: Orders PT Evaluation and Treatment Today M53.3 - Sacrococcygeal disorders, not elsewhere classified Coding Level of Care Code New Pt Level 4 (50951) Diagnoses Sacroiliac joint dysfunction of both sides M53.3
--- OUTSIDE RECORDS SUMMARY | 2024-10-10 08:36 | XMS_ITS | Data Portability ---
Author Organization [place] - [facility], Allergy Address [address] [place] [id number] Care Team Providers Care Cps Team Lead Name Role Phone BILL COBURN Primary Care Provider Assessment No assessment recorded. 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 [...] Not Available Not Available No t Available M-Jon Plus 27 mg iron-1 mg tablet TAKE 1 TABLET BY MOUTH EVERY DAY active Not Available Not Available No t Available Vitals Date Recorded Body height Body mass index (BMI) Body weight Provider Name and Address Organization Details Last Updated DateTime 12/19/2023 157.48 cm 27.4 kg/m2 90657.86 g Nichole Luque [place] - [facility] 12/19/2023 09:43:12 Social History None recorded. Functional Status None recorded. Mental Status None recorded. Family History Nothing Reported. Medical History No medical history recorded. Gynecological HistoryNo gynecological history recorded. Obstetrics History GPAL:G 0 P 0 0 0 0 Past Encounters Encounter ID Performer Location Encounter Start Date Encounter Closed Date Diagnosis/Indication Diagnosis SNOMED-CT Code Diagnosis ICD10 Code Diagnosis Note [id number] KARINA HUI MD [facility] [address] [phone] 12/19/2023 09:23:13 12/19/2023 10:05:04 Chronic tonsillitis 39249031 J35.01 She has cryptic tonsils without exudate or erythema. I discussed salt water gargles, hydration, and limiting caffeine. I also discussed tonsillect lobo as a last resort and we agreed to defer for now in favor of trying the above. 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 J35 .8 see above Health Concerns Section Related Observation LastModified by Organization Detai ls LastModified Time None Recorded Concern Status LastModified by Organization Details LastModified Time None Recorded Advance Directives Directive None Recorded Payers Insurance Date Sequence Insurance Name Policy Number Policy Gonzalez Covered Member ID Gonzalez Member ID Guarantor Name 12/19/2023 1 [employer] ([place] [id number] Angelica K Peter [id number] Angelica [address] 12/19/2023 1 [employer] [place] [employer] [place] [id number] Angelica K Peter [id number] Angelica Janelle Peter Notes Date Note Type Note Provider Name [...] if it would help. KARINA HUI MD [address] [place] [address], [phone], [facility] - [facility] 12/19/2023 10:04:13 OBGyn Episode No OBEpisode recorded.
--- OUTSIDE RECORDS SUMMARY | 2024-10-10 08:36 | XMS_ITS | Patient Health Record ---
Author Organization [employer] [facility] Address [address] [place] [address] Care Team Providers Care Tow Motor Mechanic Name Role Phone ENEDINA CESAR, BENY Primary Care Provider Monalisa Salcido Unavailable [phone] Allergies Allergen (clinical drug ingredient) Drug/Non Drug Allergy documented on EMR Reaction Allergy Type Onset Date Status sulfamethoxazole / trimethoprim Bactrim (uncoded) Hives Allergy Active Reason For Referral No Information Medications Medication SIG (Take, Route, Fr equency, Duration) Notes Start Date End Date Status Lysteda 650 MG 2 tablets [address] ee times a day; Duration: 5 day(s) 09/28/2016 Active Immunizations Vaccine Route [...] Risk Notes Problem Excessive and frequent menstruation (021930039) Excessive and frequent menstruation with regular cycle (N92.0) Active confirmed Plan Of Treatment Pending Test Test Name Order Date THIN PREP,HPV IF ASCUS, CT/GC (21-29YR) 09/28/2016 Insurance Providers Payer Name Payer Address Payer Phone Subscriber Number Group Number Insured Name Patient Relationship to Insured Coverage Start Date Coverage End Date [employer] [place] [address] [place] [address] [phone] [id number] [employer] Other [employer] [address] [place], [place] [address] [id number] RIAZ HERNANDEZ Child - Insured has Financial Responsibility
== END 2024-10-10 09:01 | disposition home or self-care (01) ==
LOC: HO.HOS 08:31
PROVIDERS: PCP Physician Assistant Medical; Visit Provider Physical Medicine & Rehabilitation
DX: M53.3 Sacrococcygeal disorders, not elsewhere classified (principal)
CPT/HCPCS: 99204

== ENCOUNTER 2024-10-14 14:00 | Outpatient (AMB) | payer OTHER, SELFPAY ==
--- NOTE | 2024-10-14 13:49 | A.OFFPC_ITS ---
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: No Accompanied by: Self / Same As Patient Allergies sulfamethoxazole (From BACTRIM) Allergy (Severe, Verified 10/14/24 14:47) HIVES trimethoprim (From BACTRIM) Allergy (Severe, Verified 10/14/24 14:47) HIVES Sulfa (Sulfonamide Antibiotics) Allergy (Unknown, Verified 10/14/24 14:47) hives Medication List - Last Reconciled 10/14/24 by Saskia Cuellar PA-C cholecalciferol (vitamin D3) 50 mcg PO DAILY ibuprofen 800 mg PO Q8H Tobacco use date assessed: 08/16/24 Dental Screening Dental Screen Date: 08/16/24 Did you have a dental visit in the last 12 months?: Yes Did you have a dental problem in the last 6 months where you did not have access to dental care?: No Was dental information given to patient?: Patient has dentist HPI discuss anxiety medication HPI Details The patient is a 29-year-old female presenting with anxiety. 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 She has been attending therapy, initially monthly and now biweekly, to manage her symptoms. She describes feeling overwhelmed by the multitude of tasks and often anticipates the worst possible outcomes, which consumes her thoughts. She denies any fidgety behavior or symptoms suggestive of ADHD. She has not missed any workdays due to her anxiety and has not been on medication recently, although she was prescribed medication in 2018, which made her excessively tired. The patient also reports a history of adenomyosis, confirmed by her OB after an MRI. She has opted against control due to plans for future and prefers managing menstrual cramps with ibuprofen. Social History - Employment: The patient has a [employer] job, contributing to her anxiety. 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 [facility] Medical History (Updated 07/21/25 @ 14:51 by Saskia Cuellar PA-C) Adenomyosis Anxiety Sacroiliac joint dysfunction of both sides Vitamin D deficiency Bulging lumbar disc Coccydynia Hyperlipidemia LDL goal <100 Establishing care with new doctor, encounter for Chronic SI joint pain Low back pain Left knee pain Tachycardia Pure hypercholesterolemia Iron deficiency anemia due to chronic blood loss GERD (gastroesophageal reflux disease) Physical exam Surgical History History of History of adenoidectomy Family History Father Depression Mother Lupus Rheumatoid arthritis Sarcoidosis Primary biliary cirrhosis Social History Housing: Apartment Alcohol intake: current Alcohol intake frequency: does not drink Patient Tobacco Use Status: Never used Tobacco e-Cigarette/Vaping Use: Never Used Second Hand Smoke Exposure: No service: No Current occupational status: employed Sexual orientation: Lesbian/Thompson/Homosexual Gender identity: Female Cognitive needs: No Hearing needs: No Vision needs: Yes (glasses) Female Reproductive History Menstrual Age of Menarche: 12 Questionnaire PHQ-9 Over the last 2 weeks, how often have you been bothered by any of the following problems? 1. Little interest or pleasure in doing things: not at all 2. Feeling down, depressed, or hopeless: not at all 3. Trouble falling or staying asleep, or sleeping too much: not at all 4. Feeling tired or having little energy: not at all 5. Poor appetite or overeating: not at all 6. Feeling bad about yourself - or that you are a failure or have let yourself or your family down: not at all 7. Trouble concentrating on things, such as reading the newspaper or watching television: not at all 8. Moving or speaking so slowly that other people could have noticed. Or the opposite - being so fidgety or restless that you have been moving around a lot more than usual: not at all 9. Thoughts that you would be better off or of hurting yourself in some way: not at all Total score: 0 Depression Screening Interpretation: Negative Depression Screening Done: Yes 53347 - PHQ-9 Billing: Yes Source: Developed by Drs. Gerardo Mcintyre, Trinity Salguero, Orestes Pope and colleagues, with an educational oliver from [employer]. Thrive Questionnaire Date Thrive assessed: 07/24/24 I am a: Patient What is your living situation today?: I have a steady place to live Within the past 12 months, did the food you bought not last and you didn't have the money to get more?: Never true Within the past 12 months, did you worry whether your food would run out before you got money to buy more?: Never true Do you have trouble paying for medicines?: No Do you have trouble getting transportation to medical appointments?: No Do you have trouble paying your heating and electricity bill?: No Do you have trouble taking care of your child, family member or friend?: No Do you have trouble with day-to-day activities such as bathing, preparing meals, shopping, managing finances, etc.?: No Are you currently unemployed and looking for a job?: No Are you interested in more education?: No Please select the resources that you would like help with: None Currently or been in a relationship where the following occur: No concerns reported THRIVE Score: 0 AUDIT C Alcohol Use Questionnaire (AUDIT-C) 1. How often do you have a drink containing alcohol?: Never 3. How often do you have six or more drinks on one occasion?: Never Total Score: 0 Score Reviewed/Action Taken: No VIOLETA-7 AMB Questionnaire VIOLETA-7 Date VIOLETA - 7 assessed: 07/24/24 Feeling nervous, anxious, or on edge: 0 = Not at all Not being able to stop or control worryin = Not at all Worrying too much about different things: 0 = Not at all Trouble relaxin = Not at all Being so restless that it is hard to sit still: 0 = Not at all Becoming easily annoyed or irritable: 0 = Not at all Feeling afraid as if something awful might happen: 0 = Not at all Total VIOLETA-7 score (0-4 normal; 5-9 mild; 10-14 moderate; 15-21 severe): 0 Source: Developed by Trinity Deshpande, Orestes Pope and colleagues, with an educational oliver from [employer]. VIOLETA-7 Assessment Billing VIOLETA-7 Assessment Tool: VIOLETA-7 Assessment 79983 Review of Systems Const Details: - Psychiatric: Reports anxiety, feeling overwhelmed, and anticipatory worry. Denies fidgety behavior or ADHD symptoms. - Neurological: Denies any thoughts of self-harm or hallucinations. Physical exam (Primary Care) Vital Signs: Last Vital Signs Temp 99.5 F 10/14/24 13:53 Pulse 87 10/14/24 13:53 Resp 20 10/14/24 13:53 BP 140/72 H 10/14/24 13:53 Pulse Ox 99 10/14/24 13:53 Oxygen Delivery Method Room Air 10/14/24 13:53 Care Plan Goal for BP management: <140/90 at Goal BMI result Body Mass Index 24.5 normal bmi Tobacco/Smoking Status: Tobacco use Status Tobacco use date assessed 08/16/24 10/14/24 13:52 Patient Tobacco Use Status Never used Tobacco 10/14/24 13:52 e-Cigarette/Vaping Use Never Used 10/14/24 13:52 PHQ-9: PHQ-9 Score PHQ-9: Total score 0 10/14/24 13:58 Depression Screening Interpretation: Negative Thrive Assessment: Date of Thrive Assessment Date Thrive assessed 07/24/24 10/14/24 13:52 Currently or been in a relationship where the following occur: No concerns reported Const Other: Appearance: Alert. Oriented X3. No acute distress. Head: Normal external exam. Normocephalic. Atraumatic. Eyes: Pupils are equal, round, and reactive to light. Extraocular movements intact. Conjunctiva and sclera normal. Eyelids normal. Throat: Pharynx normal. Uvula midline. Moist mucous membranes. Neck: Normal inspection. Neck supple. Full range of motion. Cardiovascular: Normal heart rate and rhythm. Respiratory: No respiratory distress. Painless inspiration. Back: Full range of motion noted. Skin: Skin warm and dry. Normal skin color. Extremities: Extremities exhibit normal range of motion. Results Reviewed Results Reviewed: - Imaging: MRI confirmed adenomyosis. Coding Level of Care Code Est Pt Level 4 (31385) Complex EM visit Add On G2211 Diagnoses Anxiety F41.9 Adenomyosis N80.03 Additional Codes VIOLETA-7 Assessment Billing - VIOLETA-7 Assessment Tool: VIOLETA-7 Assessment 96311 ([id number]) PHQ-9 - 94637 - PHQ-9 Billing: Yes ([id number]) Assessment & Plan Assessment & Plan (1) Anxiety: Code(s): F41.9 - Anxiety disorder, unspecified Category: Medical Plan: The patient will be referred to Ophelia Thompson, a psychiatrist, for further evaluation and management of her anxiety. Ophelia Thompson will assess the patient's condition and recommend appropriate medication, avoiding those that cause excessive sedation due to the patient's responsibilities at home. The patient is advised to follow up with Ophelia Thompson and report back if there are any issues with the referral process. (2) Adenomyosis: Code(s): N80.03 - Adenomyosis of the uterus Category: Medical Plan: The patient prefers to manage her adenomyosis-related menstrual cramps with ibuprofen 800 mg, prescribed with three refills. She has opted against hormonal control due to plans for future . Plan Plan Patient was informed and verbally consented to the use of an ambient scribe for clinic note documentation during this visit. 1. Anxiety The patient will be referred to Ophelia Thompson, a psychiatrist, for further evaluation and management of her anxiety. Ophelia Thompson will assess the patient's condition and recommend appropriate medication, avoiding those that cause excessive sedation due to the patient's responsibilities at home. The patient is advised to follow up with Ophelia Thompson and report back if there are any issues with the referral process. 2. Adenomyosis The patient prefers to manage her adenomyosis-related menstrual cramps with ibuprofen 800 mg, prescribed with three refills. She has opted against hormonal control due to plans for future . I discussed with the patient the management of her anxiety, emphasizing the impo rtance of finding a suitable medication that does not cause sedation, given her responsibilities at home. We agreed on a referral to Ophelia Thompson for psychiatric evaluation and medication management. For her adenomyosis, we discussed the use of ibuprofen for pain management and the decision to avoid hormonal control due to future plans. Orders: Referrals Psychiatry Outpatient Consultation Service F41.9 - Anxiety disorder, unspecified Medications: New ibuprofen 800 mg PO Q8H 30 tabs 3RF Patient Instructions: - Follow up with Ophelia Thompson for psychiatric evaluation and medication management. - Take ibuprofen 800 mg as prescribed for menstrual cramps, ensuring to take with food. - Contact the office if Ophelia Thompson does not reach out within a week or two.
[2024-10-14 13:53] VITALS: BP 140/72; PULSE 87; RESP 20; TEMP 37.5; O2SAT 99; BMI 24.5
--- OUTSIDE RECORDS SUMMARY | 2024-10-14 14:52 | XMS_ITS | Data Portability ---
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 [...] Updated DateTime 12/19/2023 157.48 cm 27.4 kg/m2 68576.86 g Nichole Luque [place] - [facility] 12/19/2023 09:43:12 Social History None recorded. Functional Status None recorded. Mental Status None recorded. Family History Nothing Reported. Medical History No medical history recorded. Gynecological HistoryNo gynecological history recorded. Obstetrics History GPAL:G 0 P 0 0 0 0 Past Encounters Encounter ID Performer Location Encounter Start Date Encounter Closed Date Diagnosis/Indication Diagnosis SNOMED-CT Code Diagnosis ICD10 Code Diagnosis Note [id number] KARINA HUI MD [facility] [address] [id number] 12/19/2023 09:23:13 12/19/2023 10:05:04 Chronic tonsillitis 10804476 J35.01 She has cryptic tonsils without exudate or erythema. I discussed salt water gargles, hydration, and limiting caffeine. I also discussed tonsillect lobo as a last resort and we agreed to defer for now in favor of trying the above. 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 .8 see above Health Concerns Section Related Observation LastModified by Organization Detai ls LastModified Time None Recorded Concern Status LastModified by Organization Details LastModified Time None Recorded Advance Directives Directive None Recorded Payers Insurance Date Sequence Insurance Name Policy Number Policy Gonzalez Covered Member ID Gonzalez Member ID Guarantor Name 12/19/2023 1 [place] ([place] [id number] Angelica K Peter [id number] 12/19/2023 1 [employer] [place] [id number] Angelica K Peter [id number] Angelica Janelle Peter Notes Date Note [...] if it would help. KARINA HUI MD [address] [place] [address], [id number], [facility] - [facility] 12/19/2023 10:04:13 OBGyn Episode No OBEpisode recorded.
--- OUTSIDE RECORDS SUMMARY | 2024-10-14 14:52 | XMS_ITS | Patient Health Record ---
Author Organization [facility] Address [address] [place] [address] Care Team Providers Care Solar Resource Assessor Name Role Phone ENEDINA CESAR, BENY Primary Care Provider Monalisa Salcido Unavailable [phone] Allergies Allergen (clinical drug ingredient) Drug/Non Drug [...] End Date [place] [address] [place] [address] [phone] [id number] WOOD SINGLET[employer] Other [employer]IG[employer] [address] [facility] [place] [address] [phone] [id number] ESCRIBAN O RIAZ Natural Child - Insured has Financial Responsibility
== END 2024-10-14 14:34 | disposition home or self-care (01) ==
LOC: HO.HMCSH 14:00
PROVIDERS: PCP Physician Assistant Medical; Visit Provider Physician Assistant Medical
DX: F41.9 Anxiety disorder, unspecified (principal); N80.03 Adenomyosis of the uterus

== ENCOUNTER → 2024-10-14 14:00 | Outpatient (BNVA) | payer OTHER, SELFPAY | PROVIDERS: PCP Physician Assistant Medical; Visit Provider Physician Assistant Medical | DX: N80.03 Adenomyosis of the uterus (principal); F41.9 Anxiety disorder, unspecified | CPT/HCPCS: 96127 ==

== ENCOUNTER 2024-10-15 12:21 | Outpatient (AMB) | payer OTHER, SELFPAY ==
--- NOTE | 2024-10-15 12:16 | MHC.OFFVISPS ---
Intake Intake Visit Reasons: consultation Soundscriber Mechanic Required: No Allergies sulfamethoxazole (From BACTRIM) Allergy (Severe, Verified 10/14/24 14:47) HIVES trimethoprim (From BACTRIM) Allergy (Severe, Verified 10/14/24 14:47) HIVES Sulfa (Sulfonamide Antibiotics) Allergy (Unknown, Verified 10/14/24 14:47) hives Medication List - Last Reconciled 10/15/24 by Ophelia Renner APRN cholecalciferol (vitamin D3) 50 mcg PO DAILY ibuprofen 800 mg PO Q8H HPI- Psychiatric Chief Complaint: consultation HPI Narrative: Pt reporting increased anxiety, attributing anxiety to work related stressors and managing her toddler at home. Pt reports a long histroy of being anxious but most of the time she is able to manage it; she reports the anxiety is much higher when she is under stress. Pt reported anxious thought patterns, and is currently working with a therapist. She feels therapy is helpful but not enough at this time. She describes intruaive worried thoughts that she knows are unrealistic but she can not refute completely and she has escalating anxiety most of the time. Pt reported she was previously on Effexor 37.5mg in 2018, but noted daytime fatigue and drowsiness. She denies depression, she denies radha. she denies thoughts of hurting slef or other; no sign of any psychosis. Past Psychiatric History: outpt tx No IPLOC Subjective Subjective Subjective Medication Compliance: Yes Side effects from medications: No Review of Systems Medical Review of Systems: unchanged Review of Systems Review of Systems Constitutional : No Weight loss, + Fever, + Chills, + Fatigue, +No Malaise ENT/Mouth : + sore throat, No Rhinorrhea, + ear discomfort Eyes: No Eye Pain, No Swelling, No Redness Cardiovascular : No Chest Pain, No SOB, No Dyspnea on Exertion, No Orthopnea, No Edema, No Palpitations Respiratory : No Cough, No Sputum, No Wheezing Gastrointestinal : No Nausea, No Vomiting, No Diarrhea, No Constipation, No abdominal Pain, No Hematochezia, No Melena Genitourinary : No Dysuria, No Urinary Frequency, No Hematuria, Musculoskeletal : No joint pain, No Myalgias, No Joint Swelling Skin : No Skin Lesions, No rash Neuro : No Weakness, No Numbness, No Dizziness, No Headache Psych : No Anxiety/Panic, No Depression All other systems reviewed and are negative Yes all other systems are reviewed and are negative Mental Status Exam Mental Status Exam Patient Appearance: Well Grooomed and Appropriate Patient Orientation: Person, Place, Time and Situation Level of Consciousness: Awake and Appropriate Patient Behavior: Appropriate and Cooperative Mood Description: Anxious Affect Description: Anxious Patient Cognition Impaired: No Ability to Follow Directions: Excellent Speech Pattern: Clear and Appropriate Memory Description: Intact Hallucinations: None Delusions: Not Present Thought Process: Intact and Goal Oriented Thought Content: positive for Intact and positive for Goal Oriented Judgement: Good Results Reviewed Results Reviewed: review PCP notes review labs and ekg- no concerns re:psychiatrically Assessment and Plan Assessment & Plan (1) VIOLETA (generalized anxiety disorder): Status: Acute Code(s): F41.1 - Generalized anxiety disorder Plan start zoloft 25m mg daily x 10 days then zoloft 50mg daily - take with food return in 5 weeks Medications: New sertraline (Zoloft) 50 mg orally Take 1/2 tab daily for 10 days then increase to 1 tab daily thereafter. take with food; 90 tabs 0RF Counseling and coordination of Care Pt. Self Management counseling: Maintenance-social rhythm, Nutrition education and improvement and General coping skills Medication management counseling: Effectiveness, Side effects, Dosing range, Duration, Drug interaction and Adherence Diagnosis and Prognosis Counseling: Accuracy of diagnosis, Prognosis over time, Impact of diagnosis on life functions, Impact of family relationship, Problematic behaviors secondary to diagnosis and Adequacy of current interventions Details: I spent 55 minutes reviewing the record, seeing the patient and documenting in the medical record. Counseling provided to the patient/caregiver as outlined below. Addressed patient/caregiver concerns regarding current medication regime including effective adherence. Addressed patient/caregiver concerns regarding diagnosis and prognosis including accuracy of diagnosis, prognosis over time, impact of diagnosis. Addressed patient/caregiver concerns regarding impact of recent stressors. [facility] Medical History (Updated 10/15/24 @ 12:58 by Ophelia Renner APRN) Adenomyosis Anxiety Sacroiliac joint dysfunction of both sides Vitamin D deficiency Bulging lumbar disc Coccydynia Hyperlipidemia LDL goal <100 Establishing care with new doctor, encounter for Chronic SI joint pain Low back pain Left knee pain Tachycardia Pure hypercholesterolemia Iron deficiency anemia due to chronic blood loss GERD (gastroesophageal reflux disease) Physical exam Surgical History History of History of adenoidectomy Family History Father Depression Mother Lupus Rheumatoid arthritis Sarcoidosis Primary biliary cirrhosis Social History Housing: Apartment Alcohol intake: current Alcohol intake frequency: does not drink Patient Tobacco Use Status: Never used Tobacco e-Cigarette/Vaping Use: Never Used Second Hand Smoke Exposure: No service: No Current occupational status: employed Sexual orientation: Lesbian/Thompson/Homosexual Gender identity: Female Cognitive needs: No Hearing needs: No Vision needs: Yes (glasses) Social History: lives w h and 2 yr old daughter Substance History: none Trauma History: none Coding Level of Care Code Psych Diag Eval w/Med (33306) Diagnoses VIOLETA (generalized anxiety disorder) F41.1
--- OUTSIDE RECORDS SUMMARY | 2024-10-15 13:23 | XMS_ITS | Patient Health Record ---
Author Organization [facility] Address [address] [place] [address] Care Team Providers Care Lawn Care Technician Name Role Phone ENEDINA CESAR, BENY Primary Care Provider Monalisa Salcido Unavailable [phone] Allergies Allergen (clinical drug ingredient) Drug/Non Drug [...] End Date [employer] [address] [place] [address] [id number] WO[employer] SINGLETARY Other [employer] [address] [place] [address] [phone] [id number] ESCRIBAN O RIAZ Natural Child - Insured has Financial Responsibility
== END 2024-10-15 12:54 | disposition home or self-care (01) ==
LOC: HO.HOP 12:21
PROVIDERS: PCP Physician Assistant Medical; Visit Provider Clinical Nurse Specialist Psychiatric/Mental Health
DX: F41.1 Generalized anxiety disorder (principal)
CPT/HCPCS: 90792

== ENCOUNTER → 2024-10-15 12:21 | Outpatient (BNVA) | payer OTHER, SELFPAY | PROVIDERS: PCP Physician Assistant Medical; Visit Provider Clinical Nurse Specialist Psychiatric/Mental Health | DX: F41.1 Generalized anxiety disorder (principal) | CPT/HCPCS: 90792 ==